=== PATIENT | female | born 1950 | race Caucasian/White ===

== ENCOUNTER 2024-09-09 15:59 | Emergency (ER) | payer MEDICARE, SELFPAY ==
[2024-09-09] VITALS (35 sets, daily range): BP systolic 68–138; BP diastolic 49–83; PULSE 91–124; TEMP 36.7; O2SAT 86–100; BMI 28.9
--- NOTE | 2024-09-09 16:32 | ECG_ITS ---
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
--- NOTE | 2024-09-09 16:54 | ECG_ITS ---
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
[2024-09-09] MEDS: 0.9 % SODIUM CHLORIDE 1,000 ML 1000 ML IV (17:03)
[2024-09-09 17:06] LABS: Hematocrit 35.7 % (36.0-48.0); Hemoglobin 11.4 g/dL (12.0-16.0); Immature Granulocytes Abs Auto 0.11 10^3/uL (0.00-0.03); Immature Granulocytes Pct Auto 0.9 % (0.0-0.5); Lymphocytes Absolute Auto 0.8 10^3/uL (1.2-3.8); Mean Corpuscular HGB Conc 31.9 g/dL (29.9-35.2); Mean Corpuscular Hemoglobin 26.5 pg (26.7-34.0); Mean Corpuscular Volume 82.8 fL (81.0-99.0); Platelet Count 371 10^3/uL (150-450); Red Blood Count 4.31 10^6/uL (4.20-5.40); White Blood Count 12.1 10^3/uL (4.0-11.0)
[2024-09-09] MEDS: ORPHENADRINE 60 MG/2 ML VIAL IV (17:07)
[2024-09-09] MEDS: KETOROLAC TROMETHAMINE 30 MG/ML VIAL 15 MG IVP (17:07)
--- NOTE | 2024-09-09 17:19 | XR_ITS ---
The [place] [id number] Patient Name: RUTH ALONZO MRN: [id number] date: 1950 Sex: F Assigned Patient Location: ER Current Patient Location: ER Accession/Order Number: [id number] Exam Date: 09/09/2024 17:46 Report Date: 09/09/2024 17:46 At the request of: GABRIEL GARCIA MD Procedure: XR chest 1V XR chest 1V 09/09/2024 5:41 PM SIGNS AND SYMPTOMS: ^cp PROTOCOL: Frontal radiograph of the chest COMPARISON: 05/14/2022 FINDINGS: The trachea is midline. The heart and mediastinal structures are within normal limits. The lung parenchyma is clear. The bony thorax is intact. Degenerative changes are noted in the shoulders and thoracic spine. XR/XR chest 1V IMPRESSION: No acute cardiopulmonary pathology. Impression dictated by: Chandrakant Oneill M.D. 09/09/2024 5:46 PM Dictation Location: [place] [address] Electronically authenticated by: [id number] Y Date: 09/09/2024 17:46
[2024-09-09 17:22] LABS: INR 1.16; Prothrombin Time 12.1 sec (9.0-11.6)
[2024-09-09 17:23] LABS: Lactate/Lactic Acid 1.1 mmol/L (0.4-2.0)
[2024-09-09 17:24] LABS: Alanine Aminotransferase 7 U/L (14-59); Albumin Globulin Ratio 0.5; Albumin Level 2.7 g/dL (3.4-5.0); Alkaline Phosphatase 135 U/L (46-116); Anion Gap 15.0; Aspartate Amino Transferase 15 U/L (15-37); Blood Urea Nitrogen 17.0 mg/dL (7.0-18.0); Calcium 9.2 mg/dL (8.5-10.1); Carbon Dioxide 29.8 mmol/L (21.0-32.0); Chloride 93 mmol/L (98-107); Estimated GFR (African America 52 (>=60 mL/min/1.73m^2); Estimated GFR (Non-African Ame 43 (>=60 mL/min/1.73m^2); Globulin 5.4 g/dL; Glucose 142 mg/dL (74-106); Sodium 135 mmol/L (136-145); Total Protein 8.1 g/dL (6.4-8.2)
[2024-09-09 17:26] LABS: Potassium 2.8 mmol/L (3.5-5.1)
[2024-09-09] MEDS: MORPHINE SULFATE 2 MG/ML SYRINGE IV (17:36)
[2024-09-09] MEDS: POTASSIUM CHLORIDE IN WATER 10 MEQ/100 ML PREMIX 100 MEQ IV ×2 (17:45→19:05)
--- NOTE | 2024-09-09 18:40 | ED.CHESTPAI1 ---
HPI - Chest Pain General Chief Complaint: Back Pain/Injury Stated Complaint: severe back pain Time Seen by Provider: 09/09/24 16:27 Source: patient Mode of arrival: Wheelchair Limitations: no limitations History of Present Illness HPI narrative: The patient is a 74-year-old female coming to the ER with a right sided chest wall pain, patient mentioned that she chronically have chest wall pain that is mostly secondary to muscle spasm but over the last few days she has been having significantly severe pain associated with sometimes radiation to the left ear and jaw, The patient have no sweating with it no nausea no vomiting no difficulty breathing It was also noted that the patient was evaluated by her primary care doctor recently she was provided with levofloxacin for UTI management Related Data Home Medications ?Medication ?Instructions ?Recorded ?Confirmed alprazolam 0.5 mg tablet mg 09/09/24 aspirin 325 mg tablet 325 mg PO DAILY 09/09/24 09/09/24 cyproheptadine 4 mg tablet mg 09/09/24 furosemide 40 mg tablet (Lasix) mg 09/09/24 levothyroxine 50 mcg tablet mcg 09/09/24 metformin 500 mg tablet mg 09/09/24 omeprazole 40 mg capsule,delayed mg 09/09/24 release potassium 95 mg tablet 20 mg PO 09/09/24 Allergies Allergy/AdvReac Type Severity Reaction Status Date / Time Sulfa (Sulfonamide Allergy Mild Hives Verified 09/09/24 16:04 Antibiotics) Review of Systems ROS Status of ROS 10 or more systems reviewed and unremarkable except as noted in history and below PFSH PFSH Social History Little interest or pleasure in doing things: not at all Feeling down, depressed, or hopeless: not at all Exam Narrative Exam Narrative: Nurses notes and vital signs reviewed and patient is not hypoxic. General: Well-appearing and in no apparent distress. Skin: Warm, dry, no pallor noted. No rash. Head: Normocephalic, atraumatic. Neck: Supple, non-tender. Eye: Pupils are equal, round and EOMI. No scleral icterus. Ears, Nose, Mouth, and Throat: TM are clear, no nasal mucosal hypertrophy. Oral mucosa is moist, no posterior oropharynx erythema, uvula is mid-line Cardiovascular: Regular Rate and Rhythm without murmur, gallop or rub. Respiratory: No accessory muscle use or respiratory distress. Lungs are clear to auscultation, no wheezing, rales or rhonchi Chest Wall: Right-sided chest wall significant tenderness at the scapular area no ecchymosis Back: No midline thoracic or lumbar vertebral tenderness. No CVA tenderness Musculoskeletal: normal ROM, no calf or popliteal tenderness, no lower extremity edema/swelling GI: Abdomen is soft, non-distended. Normal bowel sounds. No masses appreciated. No tenderness to palpation. No rebound, guarding, or rigidity noted. Neurological: A&O x4. No cranial nerve dysfunction observed. Constitutional Vital Signs, click to edit/add: Last Vital Signs Temp 98.1 F 09/09/24 16:05 Pulse 124 H 09/09/24 16:05 Resp 20 09/09/24 16:05 BP 118/80 09/09/24 16:05 Pulse Ox 96 09/09/24 16:05 O2 Del Method Room Air 09/09/24 16:05 Course Vital Signs Vital signs: Vital Signs Temperature 98.1 F 09/09/24 16:05 Pulse Rate 124 H 09/09/24 16:05 Respiratory Rate 20 09/09/24 16:05 Blood Pressure 118/80 09/09/24 16:05 Pulse Oximetry 96 09/09/24 16:05 Oxygen Delivery Method Room Air 09/09/24 16:05 Temperature 98.1 F 09/09/24 16:05 Pulse Rate 124 H 09/09/24 16:05 Respiratory Rate 20 09/09/24 16:05 Blood Pressure 118/80 09/09/24 16:05 Pulse Oximetry 96 09/09/24 16:05 Oxygen Delivery Method Room Air 09/09/24 16:05 MDM - Chest Pain MDM Narrative Medical decision making narrative: On arrival the patient had an EKG that shows that she have a sinus rhythm with a heart rate of 111 at that time that EKG did not show any acute changes ST elevation or depression... It was actually 1 hour almost on arrival the patient had felt that she is having that the pain going to her left side of the neck and the jaw and that when you repeated another EKG that although it was showing some artifact it did show some PVCs The patient CBC showed no leukocytosis lactic acid was not elevated but it was concerning that the patient is tachycardic with a heart rate of 124 on arrival The D-dimer was elevated and CT angio of the chest ordered to rule out any PE Patient also had a negative troponin She was treated in the ER with Toradol morphine and Norflex with improvement The patient also was found to have a low potassium of 2.8 and it seems that she have a history of low potassium that she takes supplements and she was provided with IV potassium while she was in the ER Lab Data Labs: Lab Results 09/09/24 Range/Units 17:00 WBC 12.1 H (4.0-11.0) 10^3/uL RBC 4.31 (4.20-5.40) 10^6/uL Hgb 11.4 L (12.0-16.0) g/dL Hct 35.7 L (36.0-48.0) % MCV 82.8 (81.0-99.0) fL MCH 26.5 L (26.7-34.0) pg MCHC 31.9 (29.9-35.2) g/dL RDW 15.3 H (11.0-15.0) % Plt Count 371 (150-450) 10^3/uL MPV 9.4 L (9.5-13.5) fL Neut % (Auto) 83.6 H (43.0-75.0) % Lymph % (Auto) 6.8 L (20.5-60.0) % [place] % (Auto) 8.4 (1.7-12.0) % Eos % (Auto) 0.1 L (0.9-7.0) % Baso % (Auto) 0.2 (0.2-2.0) % Neut # (Auto) 10.1 H (1.4-6.5) 10^3/uL Lymph # (Auto) 0.8 L (1.2-3.8) 10^3/uL [place] # (Auto) 1.0 H (0.3-0.8) 10^3/uL Eos # (Auto) 0.0 (0.0-0.7) 10^3/uL Baso # (Auto) 0.0 (0.0-0.1) 10^3/uL Abs Immat Gran (auto) 0.11 H (0.00-0.03) 10^3/uL Imm/Tot Granulo (auto) 0.9 H (0.0-0.5) % PT 12.1 H (9.0-11.6) sec INR 1.16 D-Dimer 1.49 H* (<=0.59) mg/L FEU Sodium 135 L (136-145) mmol/L Potassium 2.8 L* (3.5-5.1) mmol/L Chloride 93 L (98-107) mmol/L Carbon Dioxide 29.8 (21.0-32.0) mmol/L Anion Gap 15.0 BUN 17.0 (7.0-18.0) mg/dL Creatinine 1.21 H (0.55-1.02) mg/dL Est GFR ( Amer) 52 L (>=60 mL/min/1.73m^2) Est GFR (Non-Af Amer) 43 L (>=60 mL/min/1.73m^2) BUN/Creatinine Ratio 14.0 Glucose 142 H (74-106) mg/dL Lactate 1.1 (0.4-2.0) mmol/L Calcium 9.2 (8.5-10.1) mg/dL Total Bilirubin 0.4 (0.2-1.0) mg/dL AST 15 (15-37) U/L ALT 7 L (14-59) U/L Alkaline Phosphatase 135 H (46-116) U/L Troponin I High Sens 4.6 (4.0-51.3) pg/mL Total Protein 8.1 (6.4-8.2) g/dL Albumin 2.7 L (3.4-5.0) g/dL Globulin 5.4 g/dL Albumin/Globulin Ratio 0.5 Discharge Plan Discharge Patient Disposition: Still a Patient
--- NOTE | 2024-09-09 20:09 | ED.BACK1 ---
HPI HPI - Back Pain/Injury General Chief Complaint: Back Pain/Injury Stated Complaint: severe back pain Time Seen by Provider: 09/09/24 16:27 Source: patient Mode of arrival: Wheelchair Limitations: no limitations History of Present Illness HPI Narrative: This 74-year-old female who has a history of chronic upper back pain with muscle spasms that she has had for the past 5 years was signed out to me at shift change pending CT angio of the chest. She states the symptoms have been ongoing for 5 years but worse recently. She has no numbness or tingling. She states she saw Dr. Whitaker last who thought she may have a kidney infection and put her on Levaquin and Pyridium. She states that every time she took that she felt worse. She has been on tizanidine in the past and has been using that without significant improvement. She is comfortable at this time with stable vital signs. Labs are reviewed. She does have an elevated D-dimer. CT angio of the chest is pending. She has a normal troponin. Count is minimally elevated at 12.1 with a stable hemoglobin. Electrolyte panel is normal with the exception of a low potassium at 2.8. This was replaced with IV and oral potassium. CT angiogram is negative for pulmonary embolism and negative for any acute abnormality in the chest. The results of the CT scan were discussed with the patient and her . She was given a copy of the report for her records. She is still perplexed as to what is causing her pain. Since it has been ongoing for the past 5 years it is likely musculoskeletal in nature. She will be given a prescription for Zofran and [place] to use in addition to her tizanidine for pain and spasm. She has potassium supplementation at home but she will also be given a prescription for 20 mill equivalent potassium to take on a daily basis due to her prior hypokalemia. O[facility] was reviewed and is negative for any recent activity except Xanax Related Data Home Medications ?Medication ?Instructions ?Recorded ?Confirmed alprazolam 0.5 mg tablet mg 09/09/24 aspirin 325 mg tablet 325 mg PO DAILY 09/09/24 09/09/24 cyproheptadine 4 mg tablet mg 09/09/24 furosemide 40 mg tablet (Lasix) mg 09/09/24 levothyroxine 50 mcg tablet mcg 09/09/24 metformin 500 mg tablet mg 09/09/24 omeprazole 40 mg capsule,delayed mg 09/09/24 release potassium 95 mg tablet 20 mg PO 09/09/24 Allergies Allergy/AdvReac Type Severity Reaction Status Date / Time Sulfa (Sulfonamide Allergy Mild Hives Verified 09/09/24 16:04 Antibiotics) PFSH PFSH Social History Little interest or pleasure in doing things: not at all Feeling down, depressed, or hopeless: not at all Exam Constitutional Vital Signs, click to edit/add: Last Vital Signs Temp 98.1 F 09/09/24 16:05 Pulse 124 H 09/09/24 16:05 Resp 20 09/09/24 16:05 BP 118/80 09/09/24 16:05 Pulse Ox 96 09/09/24 16:05 O2 Del Method Room Air 09/09/24 16:05 Course Vital Signs Vital signs: Vital Signs Temperature 98.1 F 09/09/24 16:05 Pulse Rate 124 H 09/09/24 16:05 Respiratory Rate 20 09/09/24 16:05 Blood Pressure 118/80 09/09/24 16:05 Pulse Oximetry 96 09/09/24 16:05 Oxygen Delivery Method Room Air 09/09/24 16:05 Temperature 98.1 F 09/09/24 16:05 Pulse Rate 124 H 09/09/24 16:05 Respiratory Rate 09/09/24 16:05 Blood Pressure 118/80 09/09/24 16:05 Pulse Oximetry 96 09/09/24 16:05 Oxygen Delivery Method Room Air 09/09/24 16:05 MDM - Back Pain/Injury Medical Records Attestation: I reviewed the patient's medical records. Lab Data Attestation: I reviewed the patient's lab results. Labs: Lab Results 09/09/24 Range/Units 17:00 WBC 12.1 H (4.0-11.0) 10^3/uL RBC 4.31 (4.20-5.40) 10^6/uL Hgb 11.4 L (12.0-16.0) g/dL Hct 35.7 L (36.0-48.0) % MCV 82.8 (81.0-99.0) fL MCH 26.5 L (26.7-34.0) pg MCHC 31.9 (29.9-35.2) g/dL RDW 15.3 H (11.0-15.0) % Plt Count 371 (150-450) 10^3/uL MPV 9.4 L (9.5-13.5) fL Neut % (Auto) 83.6 H (43.0-75.0) % Lymph % (Auto) 6.8 L (20.5-60.0) % [place] % (Auto) 8.4 (1.7-12.0) % Eos % (Auto) 0.1 L (0.9-7.0) % Baso % (Auto) 0.2 (0.2-2.0) % Neut # (Auto) 10.1 H (1.4-6.5) 10^3/uL Lymph # (Auto) 0.8 L (1.2-3.8) 10^3/uL [place] # (Auto) 1.0 H (0.3-0.8) 10^3/uL Eos # (Auto) 0.0 (0.0-0.7) 10^3/uL Baso # (Auto) 0.0 (0.0-0.1) 10^3/uL Abs Immat Gran (auto) 0.11 H (0.00-0.03) 10^3/uL Imm/Tot Granulo (auto) 0.9 H (0.0-0.5) % PT 12.1 H (9.0-11.6) sec INR 1.16 D-Dimer 1.49 H* (<=0.59) mg/L FEU Sodium 135 L (136-145) mmol/L Potassium 2.8 L* (3.5-5.1) mmol/L Chloride 93 L (98-107) mmol/L Carbon Dioxide 29.8 (21.0-32.0) mmol/L Anion Gap 15.0 BUN 17.0 (7.0-18.0) mg/dL Creatinine 1.21 H (0.55-1.02) mg/dL Est GFR ( Amer) 52 L (>=60 mL/min/1.73m^2) Est GFR (Non-Af Amer) 43 L (>=60 mL/min/1.73m^2) BUN/Creatinine Ratio 14.0 Glucose 142 H (74-106) mg/dL Lactate 1.1 (0.4-2.0) mmol/L Calcium 9.2 (8.5-10.1) mg/dL Total Bilirubin 0.4 (0.2-1.0) mg/dL AST 15 (15-37) U/L ALT 7 L (14-59) U/L Alkaline Phosphatase 135 H (46-116) U/L Troponin I High Sens 4.6 (4.0-51.3) pg/mL Total Protein 8.1 (6.4-8.2) g/dL Albumin 2.7 L (3.4-5.0) g/dL Globulin 5.4 g/dL Albumin/Globulin Ratio 0.5 Discharge Plan Discharge Chief Complaint: Back Pain/Injury Clinical Impression: Thoracic back pain, Hypokalemia Patient Disposition: Home, Self-Care Time of Disposition Decision: 20:40 Condition: Good Prescriptions / Home Meds: No Action furosemide [Lasix] 40 mg tablet alprazolam 0.5 mg tablet potassium 95 mg tablet 20 mg PO metformin 500 mg tablet omeprazole 40 mg capsule,delayed release(DR/EC) cyproheptadine 4 mg tablet aspirin 325 mg tablet 325 mg PO DAILY levothyroxine 50 mcg tablet Print Language: Chinese Instructions: Thoracic Pain (ED), Muscle Spasm (ED) Referrals: Prem Whitaker MD [Primary Care Provider, Family Practice] - 1 week
== END 2024-09-09 21:01 | disposition home or self-care (01) ==
PROVIDERS: Emergency Medicine; Emergency Provider Emergency Medicine; PCP Family Medicine
DX: M54.6 Pain in thoracic spine (principal); E87.6 Hypokalemia; G89.29 Other chronic pain; R79.89 Other specified abnormal findings of blood chemistry; R07.89 Other chest pain
CPT/HCPCS: 36415; 71045; 71275; 80053; 83605; 84484; 85025; 85378; 85610; 93005; 96365; 96366; 96375; 99285; J1885; J2270; J2360; J3480; Q9967

== ENCOUNTER 2024-10-04 13:15 | Outpatient (OUT) | payer MEDICARE, SELFPAY ==
--- OUTSIDE RECORDS SUMMARY | 2024-10-04 13:16 | XMS_ITS | Encounter Summary ---
Author Organization [facility] Address [id number] [place] [address] Care Team Providers Care Contour Sander Name Role Phone Prem Whitaker MD Primary Care Provider [phone] Encounter Details Date Type Department Care Team ([facility] st Contact Info) Description 01/08/2021 [facility]phone [facility] [address] [facility] [address] [place] [address] Jayleen Enrique, DISK SHARPENER-LANDSCAPE ACCOUNT MANAGER [address] [facility] [address] [place] [address] Social History Tobacco Use Types Packs/Day Years Used Date Smoking Tobacco: Former Smokeless Tobacco: Never Alcohol Use Standard Drinks/Week Comments Yes 0 (1 standard drink = 0.6 oz pur e alcohol) OCCASIONAL AUDIT-C Answer Date Recorded Q1: How often do you have a drink containing alc ohol? Never 07/19/2019 Average Number of Drinks Not on file 020 Frequency of Binge Drinking Not on file 06/29 Childcare Answer Date Recorded Childcare Unknown 08/01/2018 Employment Answer Date Recorded Employment Unknown 08/01/2018 Purpose - Life Answer Date Recorded Purpose and direction in life Unknown Comments No Sex and Gender Information Value Date Recorded Sex Assigned at Not on file Legal Sex Female 11:21 AM EDT Gender Identity Not on file Sexual Orientation Not on file COVID-19 Exposure Response Date Recorded In the last month, have you been in contact with someone who was confirmed or suspected to have Coronavirus / COVID-19? No / Unsure 01/07/2021 1:36 PM EST documented as of this encounter Miscellaneous Notes * Telephone Encounter - Jose Gabi Anatoliy - 01/08/2021 9:20 AM EST ----- Message from ROSY Bentley sent at 01/07/2021 5:11 PM EST ----- Please call patient's home healthcare nurse and asked them to please maintain the PICC line until further notice. We are attempting to transition patient over to oral medication to complete antibiotic course of treatment for her Pseudomonas infection. If she tolerates the Levaquin well we will reach out again to home healthcare to have them remove the PICC line on Tuesday January 12, 2021. * Telephone Encounter - Jose Gabi Anatoliy - 01/08/2021 9:20 AM EST I called Sissy and she was advised. She stated she will see the patient Tuesday anyways for picc dressing change so she will just pull labs then. And will wait to hear back on the d/c of the line. * Telephone Encounter - Jose Gabi Anatoliy - 01/08/2021 9:20 AM EST Patient is tolerating new med well, no complications. Oralia [facility] nurse from [facility] was advised of labs to pull before line is pulled. Patient will also go to lab Tuesday01/16/21 and get redraw. documented in this encounter Plan of Treatment Upcoming Encounters Date Type Department Care Team (Late st Contact Info) Description 10/15/2024 12:45 PM EDT Appointment [facility] - MRI Imaging [address] [place] [address] 10/15/2024 1:15 PM EDT Appointment [facility] - MRI Imaging [address] [place] [id number] documented as of this encounter Visit Diagnoses Not on filedocumented in this encounter Care Teams Contour Sander Relationship Specialty Start Date End Date Prem Whitaker MD PCP - General Family Medicine 07/19/19 documented as of this encounter
--- OUTSIDE RECORDS SUMMARY | 2024-10-04 13:16 | XMS_ITS | Encounter Summary ---
Author Organization [facility] Address [id number] [address] [place] [address] Care Team Providers Care Thread Clipper Name Role Phone Prem Whitaker MD Primary Care Provider [phone] Encounter Details Date Type Department Care Team ([facility] st Contact Info) Description 01/12/2021 [facility]phone [facility] [address] [facility] [address] [place] [address] Jayleen Enrique, WASH HOUSE WORKER-PRIVATE BANKER [address] [facility] [address] [place] [address] Social History Tobacco Use Types Packs/Day Years [...] Telephone Encounter - Jose Gabi Anatoliy - 01/12/2021 9:13 AM EST ----- Message from ROSY Bentley sent at 01/07/2021 4:52 PM EST ----- Please call Qian on TuesdayJanuary 12 and inquire as to whether not she is tolerating the new antibiotic (Levaquin). If she is tolerating the medicine please notify Jayleen Enrique infectious Disease PRIVATE BANKER, so I can place an order to have patient's PICC line removed. Thank you * Telephone Encounter - Jose Gabi Anatoliy - 01/12/2021 9:13 AM EST Jayleen- Patient called to say she is doing better on the Levaquin she does not have any nausea anymore. She stated she will have Oralia her [facility] nurse call us for update and labs. * Telephone Encounter - Jose Cope - 01/12/2021 9:13 AM EST Yordy Barton [facility] nurse, called back and was advised of what labs to pull, and also to pull line since patient is tolerating. * Telephone Encounter - ROSY Bentley - 01/12/2021 9:13 AM EST Okay thank you * Telephone Encounter - Jose Cope - 01/12/2021 9:13 AM EST Patient has an appt today. documented in this encounter Plan of Treatment Upcoming Encounters Date Type Department Care Team (Late st Contact Info) Description 10/15/2024 12:45 PM EDT Appointment [facility] - MRI Imaging [address] [address] 10/15/2024 1:15 PM EDT Appointment [facility] - MRI Imaging [address] [place] [address] documented as of this encounter Results * WBC (01/12/2021 10:30 AM EST) White Blood Cells 6.9 4.0 - 11.0 X10E9/L 01/12/2021 11:08 AM EST [facility] Serum / Unknown 01/12/2021 1 0:30 AM EST 01/12/2021 11:00 AM EST Jayleen Enrique WASH HOUSE WORKER-PRIVATE BANKER LAB BLOOD ORDERABLES F inal Result [address], [place] [address] * Liver panel (01/12/2021 10:30 AM EST) Alkaline phosphatase 93 39 - 130 U/L 01/12/2021 11:19 AM [facility] AST 23 0 - 41 U/L 01/12/2021 11:19 AM [facility] ALT 20 0 - 31 U/L 01/12/2021 11:19 AM [facility] Total Bilirubin 0.5 0.3 - 1.2 mg/dL 01/12/2021 11:19 AM [facility] Bilirubin, direct <0.1 0.0 - 0.4 mg/dL 01/12/2021 11:19 AM [facility] Albumin 3.7 3.2 - 5.3 g/dL 01/12/2021 11:19 AM [facility] Total Protein 7.8 6.0 - 8.0 g/dL 01/12/2021 11:19 AM [facility] Blood Serum / Unknown 01/12/2021 1 0:30 AM EST 01/12/2021 11:00 AM EST Jayleen [facility]aw[facility] WASH HOUSE WORKER-PRIVATE BANKER LAB BLOOD ORDERABLES F inal Result Performing Organization Address City/[facility]/[place] [address] * Platelet count (01/12/2021 10:30 AM EST) Platelets 278 150 - 450 X10E9/L 01/12/2021 11:08 AM [facility] MPV 8.8 7 - 12 fL 01/12/2021 11:08 AM [facility] Blood Serum / Unknown 01/12/2021 1 0:30 AM EST 01/12/2021 11:00 AM EST Jayleen Enrique WASH HOUSE WORKER-PRIVATE BANKER LAB BLOOD ORDERABLES F inal Result Performing Organization Address City/[facility] [place] [address] * (ABNORMAL) Creatinine includes GFR, serum (01/12/2021 10:30 AM EST) Creatinine 1.02(H) 0.40 - 1.00 mg/dL 01/12/2021 11:19 AM [facility] Comment:METHOD TRACEABLE TO IDMS STANDARD GFR MDRD Non Af Amer 53(L) >59 ml/min/1.7 3sq.m 01/12/2021 11:19 AM [facility] GFR MDRD Af Amer >60 >59 ml/min/1.7 3sq.m 01/12/2021 11:19 AM [facility] Serum / Unknown 01/12/2021 1 0:30 AM EST 01/12/2021 11:00 AM EST Jayleen Enrique WASH HOUSE WORKER-PRIVATE BANKER LAB BLOOD ORDERABLES F inal Result [facility] [address], [place] [address] documented in this encounter Visit Diagnoses Diagnosis Pseudomonas infection- Primary care home (current) use of antibiotics documented in this encounter Care Teams Thread Clipper Relationship Specialty Start Date End Date Prem Whitaker MD PCP - General Family Medicine 07/19/19 documented as of this encounter
--- NOTE | 2024-10-04 13:17 | MR_ITS ---
The [address] [address] Patient Name: RUTH ALONZO MRN: [facility]:[id number] date: 1950 Sex: F Assigned Patient Location: MRI Current Patient Location: MRI Accession/Order Number: [id number] Exam Date: 10/04/2024 19:14 Report Date: 10/04/2024 19:20 At the request of: ZELDA LUEVANO MD Procedure: MR cervical spine wo con EXAMINATION: MRI OF THE CERVICAL SPINE WITHOUT CONTRAST CLINICAL DATA: Cervical Radiculopathy TECHNIQUE: Multiecho imaging was performed in the sagittal and axial plane without contrast FINDINGS: FINDINGS: The craniocervical junction is maintained. Cervical vertebral heights, alignment, bone marrow signal is unremarkable. Cervical cord demonstrates normal signal morphology. Intervertebral space narrowing, mild at L4-5 prevertebral and paraspinal soft tissues are unremarkable. FINDINGS: C2-C3: Mild facet arthropathy. No significant disc disease, central canal or neural from narrowing identified. C3-C4: Mild Central disc osteophyte complex. Canal neural foramen are patent. C4-C5: Right paracentral disc osteophyte complex and bilateral uncovertebral spurring noted. This causes mild indentation right hemicord. Mild canal narrowing greatest right. There is moderate to severe right and left neural foraminal narrowing. C5-6: Broad-based disc osteophyte complex with mild uncovertebral spurring. Mild canal and mild neural foraminal narrowing. C6-C7: Broad-based disc osteophyte complex with bilateral uncovertebral spurring. Moderate neural foraminal narrowing. Mild central canal stenosis. C7-T1: Moderate right and minimal left facet arthropathy. No significant disease, central canal or neural from narrowing identified. There is degenerative facet arthropathy involving the upper thoracic spine as partially visualized which appears to cause dorsal canal encroachment. MR/MR cervical spine wo con IMPRESSION: Overall mild multilevel degenerative changes are spine greatest on the right C4-C5. Additional findings as noted within the body report. Impression dictated by: Mayo Dunham M.D. 10/04/2024 7:20 PM Dictation Location: [place] [address] Electronically authenticated by: [id number] Y Date: 10/04/2024 19:20
--- OUTSIDE RECORDS SUMMARY | 2024-10-04 13:17 | XMS_ITS | Clinical Summary ---
Author Organization [employer] s tem Address [id number] [address] [place] [address] Care Team Providers Care Splunk Consultant Name Role Phone Prem Whitaker MD Primary Care Provider [phone] Allergies Active Allergy Reactions Criticality Noted Date Comments Codeine Vomiting Low 06/15/2018 Oxycodone-Acetaminophen Itching Medium 01/23/2020 Propoxyphene N-Acetaminophen Itching Medium 020 Sulfa (Sulfonamide Antibiotics) Rash Low 07/19/2019 swollen lymph nodes , headache Medications triamterene-hydro CHLOROthiazid (MAXZIDE-25) 37.5-25 mg per tablet Take 1 tablet by mouth in the morning. Active furosemide (LASIX) 20 mg tablet Take 1 tablet (20 mg total) by mouth daily. Active ALPRAZolam (XANAX) 0.25 mg tablet Take 1 tablet (0.25 mg total) by mouth nightly as needed for anxiety. Active temazepam (RESTORIL) 7.5 mg capsule Take 1 capsule (7.5 mg total) by mouth nightly as needed for sleep. Active metFORMIN (GLUCOPHAGE) 500 mg tablet Take 1 tablet (500 mg total) by mouth daily with breakfast. PT STATES SHE IS NOT DIABETIC, IS TAKING THIS A PREVENTATIVE. Active potassium chloride (K-TAB,KLOR-CON) 10 MEQ CR tablet Take 2 tablets (20 mEq total) by mouth 3 (three) times a day. Active levothyroxine (SYNTHROID, LEVOTHROID) 50 MCG tablet Take 1 tablet (50 mcg total) by mouth in the morning. 1 Active omeprazole (PriLOSEC) 10 mg capsule Take 4 capsules (40 mg total) by mouth daily. 30 capsule 1 1 Active omeprazole (PriLOSEC) 10 mg capsule Take 4 capsules (40 mg total) by mouth. Active sodium,potassium, mag sulfates (SUPREP BOWEL PREP KIT) 17.5-3.13-1.6 gram recon soln 177 ml,actual weight, 2 times daily, Oral 177 mL 1 Active cyclobenzaprine (FLEXERIL) 10 mg tablet Take 1 tablet (10 mg total) by mouth 2 (two) times a day as needed for muscle spasms. 10 tablet 4 Active lidocaine (LIDODERM) 5 %Indications:Left -sided thoracic back pain, unspecified chronicity,DDD (degenerative disc disease), cervical,Thoracic degenerative disc disease Place 1 patch on the skin daily. Remove & Discard patch within 12 hours or as directed by 30 patch 5 Active naproxen (NAPROSYN) 500 mg tablet Take 1 tablet (500 mg total) by mouth in the morning and 1 tablet (500 mg total) in the evening. Take with meals. 14 tablet 5 Active CEPHalexin (KEFLEX) 500 mg capsule Take 1 capsule (500 mg total) by mouth in the morning and 1 capsule (500 mg total) at noon and 1 capsule (500 mg total) in the evening and 1 capsule (500 mg total) before bedtime. Do all this for 5 days. 20 capsule 5 09/17/19 25 predniSONE (DELTASONE) 20 mg tablet Take 1 tablet (20 mg total) by mouth in the morning for 5 days. 5 tablet 5 09/17/19 25 HYDROcodone-aceta minophen (NORCO) 5-325 mg per tabletIndications :Musculoskeletal pain,Wrist sprain, left, initial encounter Take 1 tablet by mouth every 8 (eight) hours as needed for pain for up to 3 days. Max Daily Amount: 3 tablets 9 tablet 5 09/22/19 25 Active Problems No known active problems Encounters Date Type Department Care Team Description 09/25/2024 Travel 09/18/2024 12:02 PM EDT - 09/18/2024 3:14 PM EDT Emergency [facility] - Emergency [address] [place] [address] Daniela Coelho MD Musculoskeletal pain (Primary Dx); Wrist sprain, left, initial encounter Discharge Disposition: Home 09/18/2024 Travel 09/14/2024 4:33 PM EDT - 09/14/2024 5:38 PM EDT Emergency [facility] - Emergency [address] [place] [address] Gretchen Sol DO Pain of left upper extremity (Primary Dx) Discharge Disposition: Home 09/14/2024 Travel 09/11/2024 3:29 PM EDT - 09/11/2024 6:37 PM EDT Emergency [facility] - Emergency [address] [place] [address] Left-sided thoracic back pain, unspecified chronicity (Primary Dx); DDD (degenerative disc disease), cervical; Thoracic degenerative disc disease; Left arm pain; Pulmonary nodules Discharge Disposition: Home 09/11/2024 Travel from Last 3 Months Immunizations Immunization Administration Dates Next Due COVID-19, mRNA, LNP-S, PF, 100mcg/0.5mL Dose Family History Medical History Relation Name Comments Brain cancer Cousin COPD Father Jose Angel Wyatts Breast cancer Maternal Aunt 1 Shazia Bowles Lung cancer Maternal Aunt 1 Shazia Bowles Diabetes Maternal Aunt 2 Jenn Bowles Ovarian cancer Maternal Aunt 3 Pallavi Bowles Uterine cancer Maternal Aunt 3 Pallavi Bowles Heart disease Maternal Grandfather Blaise Bowles II This does not apply Kidney disease Maternal Grandmother Blaise Bowles Stroke Maternal Grandmother Blaise Bowles Diabetes Maternal Uncle 1 Gurinder Bowles Diabetes Maternal Uncle 2 Chandrakant Bowles Pancreatic cancer Maternal Uncle 2 Chandrakant Bowles Arthritis Mother Annette Willie Heart disease Paternal Grandfather Pranay Bowles Relation Name Status Comments Cousin Father Pedrolon Willie Maternal Aunt 1 Shazia Bowles (Age 48) Maternal Aunt 2 Jenn Bowles Maternal Aunt 3 Pallavi Bowles Maternal Grandfather RWendyFaviola Bowles II Maternal Grandmother Blaise Bowles Maternal Uncle 1 Gurinder Bowles Maternal Uncle 2 Chandrakant Bowles Mother Annette Tapia Paternal Grandfather Pranay Bowles Social History Tobacco Use Types Packs/Day Years Used Date Smoking Tobacco: Former Smokeless Tobacco: Never Tobacco Cessation:Counseling Given: Not Answered Alcohol Use Standard Drinks/Week Comments Yes 0 [...] Employment Answer Date Recorded Employment Unknown 08/01/2018 Hunger Screening Answer Date Recorded Within the past 12 months we worried whether our food would run out before we got money to buy more. Never True 09/18/2024 Within the past 12 months th e food we bought just didn't last and we didn't have money to get more. Never True 09/18/2024 Purpose - Life Answer Date Recorded Purpose and direction in life Unknown Comments No Sex and Gender Information Value Date Recorded Sex Assigned at Not on file Legal Sex Female 11:21 AM EDT Gender Identity Not on file Sexual Orientation Not on file Last Filed Vital Signs Vital Sign Reading Time Taken Comments Blood Pressure 110/62 09/18/2024 3:13 PM EDT Pulse 80 09/18/2024 3:13 PM EDT Temperature 36.5 C (97.7 F) 09/18/2024 12:02 PM EDT Respiratory Rate 18 09/18/2024 3:13 PM EDT Oxygen Saturation 96% 09/18/2024 3:13 PM EDT Inhaled Oxygen Concentration - - Weight 66.7 kg (147 lb) 09/18/2024 12:02 PM EDT Height 152.4 cm (5') 09/18/2024 12:02 PM EDT Body Mass Index 28.71 09/18/2024 12:02 PM EDT Plan of Treatment Upcoming Encounters Date Type Department Care Team (Late st Contact Info) Description 10/15/2024 12:45 PM EDT Appointment [facility] [address] [facility] [place] [address] 10/15/2024 1:15 PM EDT Appointment [facility] - MRI Imaging [address] [place] [address] Health Maintenance Due Date Last Done Comments Depression Screening 1962 DTaP,Tdap and Td Vaccines (1 - Tdap) 01/25/1967 Zoster (Shingles) Vaccine (1 of 2) 01/25/1998 Fall Risk Screening 01/25/2013 COVID-19 Vaccine (2 - season) 2023 Influenza Vaccine 10/29/2024 02/23/2019 Tobacco Screening 09/18/2025 09/18/2024 Medical Devices Not on file Procedures Procedure Name Priority Date/Time Associated Diagnosis Comments CBC WITH AUTO DIFFERENTIAL Routine 09/25/2024 4:16 PM EDT Type 2 diabetes mellitus without complications (CMS-HCC) RHEUMATOID FACTOR Routine 09/25/2024 4:1 6 PM EDT Type 2 diabetes mellitus without complications (CMS-HCC) QUANTIFERON-TB GOLD PLUS, B Routine 09/25/2024 4:16 PM EDT Type 2 diabetes mellitus without complications (CMS-HCC) ERYTHROCYTE SEDIMENTATION RATE (ESR) Routine 09/25/2024 4:16 PM EDT Type 2 diabetes mellitus without complications (CMS-HCC) COMPREHENSIVE METABOLIC PANEL Routine 09/25/2024 4:16 PM EDT Type 2 diabetes mellitus without complications (CMS-HCC) XR ELBOW LT MIN 3 VWS STAT 09/18/2024 1:06 PM EDT XR WRIST LT MIN 3 VWS STAT 09/18/2024 12:56 PM EDT XR SHOULDER LT MIN 2 VWS STAT 09/18/2024 12:56 PM EDT XR SPINE CERVICAL 3 VWS OR LESS STAT 09/18/2024 12:55 PM EDT XR HAND LT MIN 3 VWS STAT 09/18/2024 12:54 PM EDT POCT NURSING URINE MACROSCOPIC UA Routine 09/11/2024 5:46 PM EDT ER EXTRA URINE MARBLE STAT 09/11/2024 5:35 PM EDT ER EXTRA URINE CULTURE STAT 09/11/2024 5:35 PM EDT ER EXTRA URINE STAT 09/11/2024 5:[address] THORACIC SPINE WO CONT STAT 09/11/2024 4:30 PM EDT XR SHOULDER LT MIN 2 VWS STAT 09/11/2024 4:[address] CERVICAL SPINE WO CONT STAT 09/11/2024 4:[address] BRAIN WO CONT STAT 09/11/2024 4:29 PM EDT from Last 3 Months Results * QuantiFERON-Tb Gold Plus, B (09/25/2024 4:16 PM EDT) [facility] QUANTIFERON-TB GOLD PLUS RESULT Negative Negative 09/27/2024 12:28 PM EDT [facility] Comment: 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 tuberculosis antigens was detected. Latent infection with M. tuberculosis is unlikely. A single negative result does not exclude infection with M. tuberculosis. In patients at high risk for M.tuberculosis infection, a second test should be considered in accordance with the 2017 ATS/IDSA/CDC Clinical Practice Guidelines for Diagnosis of Tuberculosis in Adults and Children [Ld HAYWARD et. al. Clin. Infect. Dis. 2017;64(2):111-115]. The reference range for the 'TB1 Ag minus Nil Result' and 'TB2 Ag minus Nil Result' is an Interferon-gamma level <0.35 IU/mL. TB1 AG MINUS NIL RESULT 0.06 IU/mL 09/27/2024 12:28 PM EDT [facility] TB2 AG MINUS NIL RESULT 0.02 IU/mL 09/27/2024 12:28 PM EDT [facility] MITOGEN MINUS NIL 9.28 IU/mL 09/27/2024 12:28 PM EDT [facility] NIL RESULT 0.02 IU/mL 09/27/2024 12:28 PM EDT [facility] Comment: Test Performed by: [facility] [address] [place] [address] Fingernail Sculpturer: Ricardo Arroyo Ph.D.; CLIA# [id number] Blood Venous blood / Unknown Venipuncture / Unknown 09/25/2024 4:16 PM EDT 09/25/2024 4:16 PM EDT Prem Whitaker MD LAB BLOOD ORDERABLES Final Resu lt [facility] [address] [place] [address], [place] * (ABNORMAL) Erythrocyte Sedimentation Rate (ESR) (09/25/2024 4:16 PM EDT) [facility] ESR, Erythrocyte Sedimentation Rate 49(H) 0 - 30 mm/h 09/25/2024 10:31 PM EDT [facility] Blood Venous blood / Unknown Venipuncture / Unknown 09/25/2024 4:16 PM EDT 09/25/2024 4:16 PM EDT Prem Whitaker MD LAB BLOOD ORDERABLES Final Resu lt [facility] [address] [place] [address], [place] [phone] * (ABNORMAL) CBC auto differential (09/25/2024 4:16 PM EDT) Pathologist [facility] WBC 9.0 4 - 11 x10E9/L 09/25/2024 10:07 PM EDT [facility] RBC Count 4.13 3.8 - 5.2 X10E12/L 09/25/2024 10:07 PM EDT [facility] Hemoglobin 10.9(L) 11.7 - 15.5 g/dL 09/25/2024 10:07 PM EDT [facility] Hematocrit 33.5(L) 35 - 47 % 09/25/2024 10:07 PM EDT [facility] MCV 81 80 - 100 fL 09/25/2024 10:07 PM EDT [facility] MCH 26.3(L) 27 - 34 pg 09/25/2024 10:07 PM EDT [facility] MCHC 32.5 32 - 36 g/dL 09/25/2024 10:07 PM EDT [facility] RDW 16.9(H) 11.5 - 15 % 09/25/2024 10:07 PM EDT [facility] Platelet Count 547(H) 150 - 450 X10E9/L 09/25/2024 10:07 PM EDT [facility] MPV 7.7 7 - 12 fL 09/25/2024 10:07 PM EDT [facility] Neutrophils % 74.3 % 09/25/2024 10:07 PM EDT [facility] Lymphocytes % 19.2 % 09/25/2024 10:07 PM EDT [facility] Monocytes % 4.7 % 09/25/2024 10:07 PM EDT [facility] Eosinophils % 1.1 % 09/25/2024 10:07 PM EDT [facility] Basophils % 0.7 % 09/25/2024 10:07 PM EDT [facility] Neutrophils Absolute (A) 6.7(H) 1.5 - 6.6 10*3/uL 09/25/2024 10:07 PM EDT [facility] Lymphocytes Absolute 1.7 1.0 - 3.5 10*3/uL 09/25/2024 10:07 PM EDT [facility] Monocytes Absolute 0.4 0.0 - 0.9 10*3/uL 09/25/2024 10:07 PM EDT [facility] Eosinophils Absolute 0.1 0.0 - 0.4 10*3/uL 09/25/2024 10:07 PM EDT [facility] Basophils Absolute 0.1 0.0 - 0.2 10*3/uL 09/25/2024 10:07 PM EDT [facility] Differential Type AUTOMATED DIFFERENTIAL 09/25/2024 10:07 PM EDT [facility] Blood Venous blood / Unknown Venipuncture / Unknown 09/25/2024 4:16 PM EDT 09/25/2024 4:16 PM EDT us Prem Whitaker MD LAB BLOOD ORDERABLES Final Resu lt [facility] [address] [place] [address], [place] [phone] * Rheumatoid factor (09/25/2024 4:16 PM EDT) Pathologist [facility] RHEUMATOID FACTOR <10 <20 IU/mL 09/25/2024 10:45 PM EDT [facility] Blood Venous blood / Unknown Venipuncture / Unknown 09/25/2024 4:16 PM EDT 09/25/2024 4:16 PM EDT us Prem Whitaker MD LAB BLOOD ORDERABLES Final Resu lt [facility] [address] [place] [address], [place] [phone] * (ABNORMAL) Comprehensive metabolic panel (09/25/2024 4:16 PM EDT) Pathologist [facility] SODIUM 138 134 - 146 mmol/L 09/25/2024 10:45 PM EDT [facility] POTASSIUM 4.0 3.5 - 5.0 mmol/L 09/25/2024 10:45 PM [facility] CHLORIDE 99 98 - 109 mmol/L 09/25/2024 10:45 PM [facility] CARBON DIOXIDE 24 22 - 32 mmol/L 09/25/2024 10:45 PM [facility] ANION GAP 15 5 - 15 mmol/L 09/25/2024 10:45 PM [facility] BLOOD UREA NITROGEN 17 5 - 27 mg/dL 09/25/2024 10:45 PM [facility] CREATININE 1.23(H) 0.40 - 1.00 mg/dL 09/25/2024 10:45 PM [facility] Comment:METHOD TRACEABLE TO IDNJ STANDARD GLUCOSE 98 65 - 99 mg/dL 09/25/2024 10:45 PM [facility] CALCIUM 8.7 8.5 - 10.5 mg/dL 09/25/2024 10:45 PM [facility] TOTAL PROTEIN 6.9 6.0 - 8.0 g/dL 09/25/2024 10:45 PM [facility] ALBUMIN 3.4 3.2 - 5.3 g/dL 09/25/2024 10:45 PM [facility] ALKALINE PHOSPHATASE 178(H) 39 - 130 U/L 09/25/2024 10:45 PM [facility] AST 11 <=41 U/L 09/25/2024 10:45 PM [facility] ALT 9 <=31 U/L 09/25/2024 10:45 PM [facility] BILIRUBIN,TOTAL 0.6 0.3 - 1.2 mg/dL 09/25/2024 10:45 PM [facility] EGFR Non-Race Dependent 46(L) >=60 ml/min/1.7 3sq.m 09/25/2024 10:45 PM [facility] Comment: Reported eGFR is based on the CKD-EPI 2020 equation that does not use a race coefficient. Blood Venous blood / Unknown Venipuncture / Unknown 09/25/2024 4:16 PM EDT 09/25/2024 4:16 PM EDT Prem Whitaker MD LAB BLOOD ORDERABLES Final Resu lt [facility] [address] [place] [address], [place] [phone] * X-ray elbow left minimum 3 views (09/18/2024 1:06 PM EDT) Anatomical Region Laterality Modality Upper Extremities, MSK, Elbow Left Co mputed Radiography 09/18/2024 1:12 PM EDT Narrative 09/18/2024 1:14 PM EDT HISTORY AND/OR TECH NOTES Pain after fall PROCEDURE X-ray of the left elbow COMPARISON no comparison currently available IMPRESSION: No visible fracture, dislocation, or hemarthrosis Osteopenia and mild degenerative change with some bone hypertrophy at the triceps insertion Finalized by Juan Carlos Ventura MD on 09/18/2024 1:14 PM Procedure Note Juan Carlos Ventura MD - 09/18/2024 HISTORY AND/OR TECH NOTES Pain after fall PROCEDURE X-ray of the left elbow COMPARISON no comparison currently available IMPRESSION: No visible fracture, dislocation, or hemarthrosis Osteopenia and mild degenerative change with some bone hypertrophy at thetriceps insertion Finalized by Juan Carlos Ventura MD on 09/18/2024 1:14 PM Eliz López GILBERT-RN TRANSFER [facility] DIAGNOSTIC IMAGING ORD ERABLES Final Result * X-ray wrist left minimum 3 views (09/18/2024 12:56 PM EDT) Anatomical Region Laterality Modality MSK, Upper Extremities, Wrist Left Co mputed Radiography 09/18/2024 12:5 7 PM EDT Narrative 09/18/2024 12:58 PM EDT HISTORY AND/OR TECH NOTES fall Pain after fall PROCEDURE X-ray of the left wrist COMPARISON no comparison currently available FINDINGS Osteopenia No fracture seen No dislocation seen Moderate arthritic change If continued pain and more detailed imaging needed, consider follow-up MRI IMPRESSION: No acute findings. Finalized by Juan Carlos Ventura MD on 09/18/2024 12:58 PM Procedure Note Juan Carlos Ventura MD - 09/18/2024 HISTORY AND/OR TECH NOTES fall Pain after fall PROCEDURE X-ray of the left wrist COMPARISON no comparison currently available FINDINGS Osteopenia No fracture seen No dislocation seen Moderate arthritic change If continued pain and more detailed imaging needed, consider follow-upMRI IMPRESSION: No acute findings. Finalized by Juan Carlos Ventura MD on 09/18/2024 12:58 PM Eliz López ROSY [facility] DIAGNOSTIC IMAGING ORD ERABLES Final Result * X-ray shoulder left minimum 2 views (09/18/2024 12:56 PM EDT) Only the most recent of2 resultswithin the time period is included. Anatomical Region Laterality Modality MSK, Upper Extremities, Shoulder Left Computed Radiography 09/18/2024 12:5 8 PM EDT Narrative 09/18/2024 12:59 PM EDT CLINICAL INFORMATION: Status post fall. Initial encounter for traumatic injury of the left shoulder fall TECHNIQUE/PROCEDURE: 3 views left shoulder COMPARISON: No relevant prior studies available. FINDINGS: Normal alignment. No fracture or periosteal reaction. Degenerative changes in the acromioclavicular and glenohumeral joints. There is subacromial space could be seen with chronic rotator cuff pathology. The visualized portions of chest and overlying soft tissues are negative. IMPRESSION: No acute osseous abnormality. Degenerative changes. Finalized by Pranay Coats MD on 09/18/2024 12:59 PM Procedure Note Pranay Coats MD - 09/18/2024 CLINICAL INFORMATION: Status post fall. Initial encounter for traumaticinjury of the left shoulder fall TECHNIQUE/PROCEDURE: 3 views left shoulder COMPARISON: No relevant prior studies available. FINDINGS: Normal alignment. No fracture or periosteal reaction. Degenerative changesin the acromioclavicular and glenohumeral joints. There is subacromialspace could be seen with chronic rotator cuff pathology. The visualizedportions of chest and overlying soft tissues are negative. IMPRESSION: No acute osseous abnormality. Degenerative changes. Finalized by Pranay Coats MD on 09/18/2024 12:59 PM Eliz López [employer]-RN TRANSFER [facility] DIAGNOSTIC IMAGING ORD ERABLES Final Result * X-ray spine cervical 3 views or less (09/18/2024 12:55 PM EDT) Anatomical Region Laterality Modality MSK, Neuro, Spine, C-spine N/A Compu santhosh Radiography 09/18/2024 12:5 8 PM EDT Narrative 09/18/2024 12:59 PM EDT XR SPINE CERVICAL 3 VWS OR LESS Clinical history:neck pain Comparison: None. Findings: Advanced multilevel degenerative disc disease with disc loss and endplate degenerative changes most pronounced at C4-C5 C5-C6 and C6-C7. Cervicothoracic junction is not well-visualized. The dens is obscured. Impression: Severe multilevel degenerative disease without definitive acute osseous abnormalities identified within the limitations of this examination. Finalized by Gumaro Shannon MD on 09/18/2024 12:59 PM Procedure Note Gumaro Shannon MD - 09/18/2024 XR SPINE CERVICAL 3 VWS OR LESS Clinical history:neck pain Comparison: None. Findings: Advanced multilevel degenerative disc disease with disc loss and endplatedegenerative changes most pronounced at C4-C5 C5-C6 and C6-C7.Cervicothoracic junction is not well-visualized. The dens is obscured. Impression: Severe multilevel degenerative disease without definitive acute osseousabnormalities identified within the limitations of this examination. Finalized by Gumaro Shannon MD on 09/18/2024 12:59 PM Eliz López [employer]-RN TRANSFER [facility] DIAGNOSTIC IMAGING ORD ERABLES Final Result * X-ray hand left minimum 3 views (09/18/2024 12:54 PM EDT) Anatomical Region Laterality Modality Upper Extremities, MSK, Hand Left Com puted Radiography 09/18/2024 12:5 6 PM EDT Narrative 09/18/2024 12:56 PM EDT CLINICAL INFORMATION: Weakness status post fall. fall TECHNIQUE/PROCEDURE: 3 views left hand COMPARISON: No relevant prior studies available. FINDINGS: Diffuse osteopenia. Normal alignment. No fracture or periosteal reaction. Degenerative changes the first carpometacarpal joint. The overlying soft tissues are negative. IMPRESSION: No acute osseous abnormality. Finalized by Pranay Coats MD on 09/18/2024 12:56 PM Procedure Note Pranay Coats MD - 09/18/2024 CLINICAL INFORMATION: Weakness status post fall. fall TECHNIQUE/PROCEDURE: 3 views left hand COMPARISON: No relevant prior studies available. FINDINGS: Diffuse osteopenia. Normal alignment. No fracture or periosteal reaction.Degenerative changes the first carpometacarpal joint. The overlying softtissues are negative. IMPRESSION: No acute osseous abnormality. Finalized by Pranay Coats MD on 09/18/2024 12:56 PM us Eliz López [employer] [facility] DIAGNOSTIC IMAGING ORD ERABLES Final Result * (ABNORMAL) POCT Nursing Urine Macroscopic UA (09/11/2024 5:46 PM EDT) POC Urine Specific [place]comb 1.015 1.010, 1.015, 1.020, 1.025 09/11/2024 5:39 PM EDT [facility] POC Urine Leukocyte Esterase Negative Negative 09/11/2024 5:39 PM EDT [facility] POC Urine Nitrite Positive(A) Negative 09/11/2024 5:39 PM EDT [facility] POC Urine pH 5.5 5.0, 6.0, 6.5, 7.0, 7.5, 8.0, 8.5, 5.5 09/11/2024 5:39 PM EDT [facility] POC Urine Protein 30 mg/dL(A) Negative 09/11/2024 5:39 PM EDT [facility] Urine Glucose Negative Negative 09/11/2024 5:39 PM EDT [facility] Urine Ketones Negative Negative 09/11/2024 5:39 PM EDT [facility] Urine Urobilinogen 1.0 E.U./dL 09/11/2024 5:39 PM EDT [facility] Urine Bilirubin Small(A) Negative 09/11/2024 5:39 PM EDT [facility]OC Urine Blood/HGB Negative Negative 09/11/2024 5:39 PM EDT [facility] Urine 09/11/2024 5:46 PM EDT 09/11/2024 5:39 PM EDT us POINT OF CARE TEST ORDERABLES Fi nal Result [address] [place] [place] [address], [place] * Extra Urine [place] (09/11/2024 5:35 PM EDT) Extra Tube Auto Resulted 09/11/2024 7:01 PM EDT [facility] Urine Urine specimen collection, clean catch / Unknown 09/11/2024 5:35 PM EDT 09/11/2024 5:56 PM EDT us Margie A Seimet PA-C URINE ORDERABLES Final Resu lt Performing Organization Address City/[facility] Co de Phone Number [address] [place] [address], [place] * Extra Urine Culture (09/11/2024 5:35 PM EDT) Extra Tube Auto Resulted 09/11/2024 7:01 PM EDT [facility] Urine Urine specimen collection, clean catch / Unknown 09/11/2024 5:35 PM EDT 09/11/2024 5:56 PM EDT us Margie A Seimet PA-C URINE ORDERABLES Final Resu lt Performing Organization Address City/[facility] Co de Phone Number [address] [place] [place] [address], [place] * Extra Urine (09/11/2024 5:35 PM EDT) Extra Tube Auto Resulted 09/11/2024 7:01 PM EDT [facility] Urine Urine specimen collection, clean catch / Unknown 09/11/2024 5:35 PM EDT 09/11/2024 5:56 PM EDT us Margie A Seimet PA-C URINE ORDERABLES Final Resu lt [address] [place] [address], [place] * CT thoracic spine without contrast (09/11/2024 4:30 PM EDT) Anatomical Region Laterality Modality MSK, Neuro, Spine, T-spine, Spine Covera N/A Computed Tomography 09/11/2024 4:34 PM EDT Narrative 09/11/2024 4:41 PM EDT STUDY: CT THORACIC SPINE WO CONT INDICATION: left mid back pain. TECHNIQUE: * CT of the thoracic spine, was performed without intravenous contrast. Coronal & sagittal MPR images were generated and reviewed. * All CT scans at this facility use dose modulation, iterative reconstruction, and/or weight based dosing when appropriate to reduce radiation dose to as low as reasonably achievable. FINDINGS: Diffuse bone demineralization. Degenerative changes in the lower cervical spine and in the mid to lower thoracic spine. Bridging osteophytes and syndesmophytes are noted. No evidence of acute fracture. No high-grade bony spinal canal stenosis in the thoracic spine. Mild suspected spinal canal stenosis in the lower cervical spine. Left bony neuroforaminal stenosis at T1-T2. 2 to 3 mm nodule in the right upper lobe (series 613, image 40). 4 mm nodule in the right lower lobe (series 603, image 42). 3 mm nodule in the left upper lobe (image 30). Bibasilar atelectasis. Borderline descending thoracic aortic aneurysm, 3.9 cm. Cholecystectomy. Significant coronary artery atherosclerosis. IMPRESSION: * Moderate degenerative thoracic spondylosis. * Borderline ascending thoracic aortic aneurysm, 3.9 cm. * Multiple small pulmonary nodules. Consider follow-up CT chest in one year if patient has risk factors for malignancy. Finalized by Sarabjit Lin on 09/11/2024 4:41 PM Procedure Note Sarabjit Lin MD - 09/11/2024 STUDY: CT THORACIC SPINE WO CONT INDICATION: left mid back pain. TECHNIQUE: * CT of the thoracic spine, was performed without intravenous contrast.Coronal & sagittal MPR images were generated and reviewed. * All CT scans at this facility use dose modulation, iterativereconstruction, and/or weight based dosing when appropriate to reduceradiation dose to as low as reasonably achievable. FINDINGS: Diffuse bone demineralization. Degenerative changes in the lower cervical spine and in the mid to lowerthoracic spine. Bridging osteophytes and syndesmophytes are noted. No evidence of acute fracture. No high-grade bony spinal canal stenosis in the thoracic spine. Mildsuspected spinal canal stenosis in the lower cervical spine. Left bonyneuroforaminal stenosis at T1-T2. 2 to 3 mm nodule in the right upper lobe (series 613, image 40). 4 mmnodule in the right lower lobe (series 603, image 42). 3 mm nodule in theleft upper lobe (image 30). Bibasilar atelectasis. Borderline descending thoracic aortic aneurysm, 3.9 cm. Cholecystectomy.Significant coronary artery atherosclerosis. IMPRESSION: * Moderate degenerative thoracic spondylosis. * Borderline ascending thoracic aortic aneurysm, 3.9 cm. * Multiple small pulmonary nodules. Consider follow-up CT chest in oneyear if patient has risk factors for malignancy. Finalized by Sarabjit Lin on 09/11/2024 4:41 PM Margie Wilson PA-C IMUbaldo CT ORDERABLES Final Res ult * CT cervical spine without contrast (09/11/2024 4:29 PM EDT) Anatomical Region Laterality Modality MSK, Neuro, Spine, C-spine, Spine Covera N/A Computed Tomography 09/11/2024 4:31 PM EDT Narrative 09/11/2024 4:32 PM EDT CLINICAL INFORMATION: left neck pain TECHNIQUE: CT CERVICAL SPINE WO CONT CT images of the cervical spine were obtained. There are moderate to severe cervical degenerative changes. No prevertebral soft tissue swelling. Lung apices are clear. No acute cervical spine fracture identified. IMPRESSION: Moderate to severe degenerative changes. All CT scans at this facility use dose modulation, iterative reconstruction, and/or weight based dosing when appropriate to reduce radiation dose to as low as reasonably achievable. Finalized by Hernandez Graf MD on 09/11/2024 4:32 PM Procedure Note Hernandez Graf MD - 09/11/2024 CLINICAL INFORMATION: left neck pain TECHNIQUE: CT CERVICAL SPINE WO CONT CT images of the cervical spine were obtained. There are moderate tosevere cervical degenerative changes. No prevertebral soft tissueswelling. Lung apices are clear. No acute cervical spine fractureidentified. IMPRESSION: Moderate to severe degenerative changes. All CT scans at this facility use dose modulation, iterativereconstruction, and/or weight based dosing when appropriate to reduceradiation dose to as low as reasonably achievable. Finalized by Hernandez Graf MD on 09/11/2024 4:32 PM Margie Wilson PA-C IMUbaldo CT ORDERABLES Final Res ult * CT brain without contrast (09/11/2024 4:29 PM EDT) Anatomical Region Laterality Modality Neuro, Head, Head and Neck, Neuro Covera N/A Computed Tomography 09/11/2024 4:30 PM EDT Narrative 09/11/2024 4:33 PM EDT STUDY: CT BRAIN WO CONT INDICATION: Headache. TECHNIQUE: * CT head was performed without intravenous contrast using the standard protocol. Automated exposure control was utilized. * All CT scans at this facility use dose modulation, iterative reconstruction, and/or weight based dosing when appropriate to reduce radiation dose to as low as reasonably achievable. FINDINGS: No evidence of acute intracranial hemorrhage, mass effect, midline shift, or extra-axial fluid collection. Mild diffuse parenchymal atrophy. Ventricles, sulci and cisterns are otherwise unremarkable. Partially empty sella. Isidro-white matter differentiation is preserved. Orbits and globes appear unremarkable. Soft tissues are unremarkable. Atherosclerotic plaque is noted in the carotid siphons bilaterally. Secretions in the left sphenoid sinus. Probably chronic and trapped fluid in the left mastoid air cells posteriorly. No evidence of aggressive osseous lesion. IMPRESSION: * No acute intracranial abnormality, by CT. MRI is more sensitive for evaluation of ischemia or subtle parenchymal abnormalities. * Partially empty sella. This is nonspecific examination setting of radiographic intracranial hypertension. Finalized by Sarabjit Lin on 09/11/2024 4:33 PM Procedure Note Sarabjit Lin MD - 09/11/2024 STUDY: CT BRAIN WO CONT INDICATION: Headache. TECHNIQUE: * CT head was performed without intravenous contrast using the standardprotocol. Automated exposure control was utilized. * All CT scans at this facility use dose modulation, iterativereconstruction, and/or weight based dosing when appropriate to reduceradiation dose to as low as reasonably achievable. FINDINGS: No evidence of acute intracranial hemorrhage, mass effect, midline shift,or extra-axial fluid collection. Mild diffuse parenchymal atrophy.Ventricles, sulci and cisterns are otherwise unremarkable. Partially emptysella. Isidro-white matter differentiation is preserved. Orbits and globes appear unremarkable. Soft tissues are unremarkable. Atherosclerotic plaque is noted in the carotid siphons bilaterally.Secretions in the left sphenoid sinus. Probably chronic and trapped fluidin the left mastoid air cells posteriorly. No evidence of aggressiveosseous lesion. IMPRESSION: * No acute intracranial abnormality, by CT. MRI is more sensitive forevaluation of ischemia or subtle parenchymal abnormalities. * Partially empty sella. This is nonspecific examination setting ofradiographic intracranial hypertension. Finalized by Sarabjit Lin on 09/11/2024 4:33 PM Margie Wilson PA-C IMG CT ORDERABLES Final Res ult from Last [address] [place] [address] [place] [address] MEDICARE [facility] Care Teams Splunk Consultant Relationship Specialty Start Date End Date Prem Whitaker MD PCP - General Family Medicine 07/19/19
--- OUTSIDE RECORDS SUMMARY | 2024-10-04 13:17 | XMS_ITS | Encounter Summary ---
Author Organization [facility] Address [id number] [address] [place] [address] Care Team Providers Care Engineering Technician Parking Name Role Phone Prem Whitaker MD Primary Care Provider [phone] Encounter Details Date Type Department Care Team (Latest Contact Info) Description 09/25/2024 Travel Social History Tobacco Use Types Packs/Day Years [...] on file Sexual Orientation Not on file documented as of this encounter Plan of Treatment Upcoming Encounters Date Type Department Care Team (Late st Contact Info) Description 10/15/2024 12:45 PM EDT Appointment [facility] - MRI Imaging [address] [phone] 10/15/2024 1:15 PM EDT Appointment [facility] - MRI Imaging [address] [place] [address] documented as of this encounter Visit Diagnoses Not on filedocumented in this encounter Care Teams Engineering Technician Parking Relationship Specialty Start Date End Date Prem Whitaker MD PCP - General Family Medicine 07/19/19 documented as of this encounter
--- OUTSIDE RECORDS SUMMARY | 2024-10-04 13:17 | XMS_ITS | Encounter Summary ---
Author Organization [facility] Address [id number] [address] [place] [address] Care Team Providers Care Radiology Tech Name Role Phone Prem Whitaker MD Primary Care Provider [phone] Encounter Details Date Type Department Care Team (Late st Contact Info) Description 12/22/2020 Telephone [facility] [place] [address] [place] [address] Philly Norris, HAND FILER BALANCE WHEEL-OPERATION AGENT [address] [place], [place] [id number] Social History Tobacco Use Types Packs/Day Years [...] have Coronavirus / COVID-19? No / Unsure 12/23/2020 5:12 PM EDT documented as of this encounter Miscellaneous Notes * Telephone Encounter - Jose Cope - 12/22/2020 12:08 PM EDT Philly- Patient's [facility] nurse Rosetta called and stated they can not get a blood return. They would like to know what to do from here. Please advise. * Telephone Encounter - ROSY Gonzalez - 12/22/2020 12:08 PM EDT Order for Cathflo can be given to declot line. Is this something I have to call pharmacy personallyand give orders or can you give on my behalf? * Telephone Encounter - Lissett Whitt CMA - 12/22/2020 12:08 PM EDT Left voicemail for Rosetta to call office back. * Telephone Encounter - Jose Cope - 12/22/2020 12:08 PM EDT Rosetta called and stated patient uses [facility] if you could call that into them please. * Telephone Encounter - ROSY Gonzalez - 12/22/2020 12:08 PM EDT Order given for cathflo. Patients insurance does not cover this. Is around 200 dollars out of pocket. Patient could go to ER to have this declotted, which I believe is covered I did given order to [facility] in case patient opts to cover out of pocket expense Please let me know * Telephone Encounter - Jose Cope - 12/22/2020 12:08 PM EDT Noted. * Telephone Encounter - Jose Cope - 12/22/2020 12:08 PM EDT Benito Sargent called and stated under picc is swollen and red, they are trying to avoid ER but wondered if she could go to IR dept and or have an xray. Line is still clotted, no blood return. She stated she will not be using the line until she gets the ok from you. Please advise. * Telephone Encounter - ROSY Gonzalez - 12/22/2020 12:08 PM EDT Patient needs to go to the ER today to be evaluated in person with the symptoms she is stating (redand swollen PICC site), concerning for infection/DVT. She will likely need a Doppler to rule out DVT. Please advise * Telephone Encounter - Jose Cope - 12/22/2020 12:08 PM EDT I called Rosetta and left a vm to call office back. * Telephone Encounter - Jose Cope - 12/22/2020 12:08 PM EDT Rosetta called back and was advised. documented in this encounter Plan of Treatment Upcoming Encounters Date Type Department Care Team (Late st Contact Info) Description 10/15/2024 12:45 PM EDT Appointment [facility] - MRI Imaging [address] [facility] [phone] 10/15/2024 1:15 PM EDT Appointment [facility] - MRI Imaging [address] [place] [phone] documented as of this encounter Visit Diagnoses Not on filedocumented in this encounter Care Teams Radiology Tech Relationship Specialty Start Date End Date Prem Whitaker MD PCP - General Family Medicine 07/19/19 documented as of this encounter
--- OUTSIDE RECORDS SUMMARY | 2024-10-04 13:17 | XMS_ITS | Clinical Summary ---
Author Organization [facility] Address [address] [place] [address] Care Team Providers Care Chlorine Plant Operator Name Role Phone Prem Whitaker MD Primary Care Provider [phone] Allergies Active Allergy Reactions Criticality Noted Date Comments Codeine GI intolerance Low 06/15/2018 Oxycodone-Acetaminophe n Itching Medium 05/17/2023 Sulfa Antibiotics Rash,Swelling,Unknown High 014 swollen lymph nodes , headache Medications clobetasol (Temovate) 0.05 % external solution apply topically to SCALP twice a day for 3 weeks then if needed for FLARES 3 Active cyproheptadine (Periactin) 4 MG tablet take 1 tablet by mouth four times a day if needed for 30 DAYS Active furosemide (Lasix) 20 MG tablet Take 1 tablet by mouth Daily Active levothyroxine (Synthroid, Levoxyl) 50 MCG tablet Take 50 mcg by mouth Daily Active metFORMIN (Glucophage) 500 MG tablet Take 1 tablet by mouth in the morning. Take with meals. Active omeprazole (PriLOSEC) [address] capsule Take 40 mg by mouth Active potassium chloride CR (Klor-Con) 10 MEQ ER tablet take 2 tablets by mouth three times a day with food Active tiZANidine (Zanaflex) 4 MG tablet Active methylPREDNISol one (Medrol Dospak) 4 MG tabletsIndicati ons:Internal derangement of right shoulder Follow schedule on package instructions 21 tablet 4 Active Active Problems No known active problems Social History Tobacco Use Types Packs/Day Years Used Date Smoking Tobacco: Former Cigarettes Smokeless Tobacco: Never Tobacco Cessation:Counseling Given: Not Answered Alcohol Use Standard Drinks/Week Comments Not Currently 0 (1 standard drink = 0.6 oz pur e alcohol) Comments Unknown Sex and Gender Information Value Date Recorded Sex Assigned at Not on file Legal Sex Female 8:12 PM EDT Gender Identity Not on file Sexual Orientation Not on file Last Filed Vital Signs Vital Sign Reading Time Taken Comments Blood Pressure - - Pulse - - Temperature - - Respiratory Rate - - Oxygen Saturation - - Inhaled Oxygen Concentration - - Weight 69.4 kg (153 lb) 09/19/2023 1:17 PM EDT Height 152.4 cm (5') 09/19/2023 1:17 PM EDT Body Mass Index 29.88 09/19/2023 1:17 PM EDT Plan of Treatment Health Maintenance Due Date Last Done Comments Pneumococcal Vaccine: 65+ Years (2 of 2 - PCV) 020 02/23/2019 Influenza Vaccine (#1) 2024 02/23/2019 Insurance MEDICARE [facility] Care Teams Chlorine Plant Operator Relationship Specialty Start Date End Date Prem Whitaker MD PCP - General Family Medicine 05/17/23
--- OUTSIDE RECORDS SUMMARY | 2024-10-04 13:17 | XMS_ITS | Clinical Summary ---
Author Organization [facility] Address [address] [place] [address] Care Team Providers Care Feather Stitcher Name Role Phone Unavailable Primary Care Provider Unavailabl e Allergies Active Allergy Reactions Criticality Noted Date Comments Codeine Vomiting Low 06/15/2018 Oxycodone-Acetaminophen Itching Medium 01/23/2020 Propoxyphene N-Acetaminophen Itching Medium 020 Sulfa (Sulfonamide Antibiotics) Swelling,Rash High 0 07/25/2013 Medications ALPRAZolam (XANAX) 0.25 mg tablet 0 06/12/19 19 Active fluticasone (FLONASE) 50 mcg/actuation nasal spray instill 1 spray into each nostril twice a day 1 04/26/19 19 Active LASIX 40 mg tablet 1 05/23/19 19 Active meloxicam (MOBIC) 15 mg tablet 06/10/19 19 Active metFORMIN (GLUCOPHAGE) 500 mg tablet 1 05/24/19 19 Active Omeprazole 40 mg capsule 06/10/19 19 Active potassium chloride ER (K-DUR, KLOR-CON) 20 mEq tablet 1 03/02/19 19 Active temazepam (RESTORIL) 30 mg cap 0 06/12/19 19 Active triamterene-hydr ochlorothiazide (MAXZIDE) 75-50 mg per tablet 11 05/20/19 19 Active erythromycin ophthalmic ointment Use 1 application in both eyes daily at bedtime. 1 Tube 3 06/16/19 19 Active Additional Information Patient not taking.Reported on 01/28/2020 Azelastine HCl (OPTIVAR) 0.05 % ophthalmic solution Use 1 Drop in both eyes twice daily. 1 Bottle 11 06/16/19 19 Active potassium chloride (K-TAB) 10 mEq tablet potassium chloride ER 10 mEq tablet,extended release Active triamcinolone acetonide (KENALOG 10) 10 mg/mL injection Kenalog 10 mg/mL suspension for injection Active olopatadine (PATANOL) 0.1 % ophthalmic solution Patanol 0.1 % eye drops Active OLANZapine (ZYPREXA) 5 mg tablet olanzapine 5 mg tablet Active hydrOXYzine pamoate (VISTARIL) 25 mg capsule hydroxyzine pamoate 25 mg capsule Active HYDROcodone-acet aminophen (NORCO) 5-325 mg per tablet hydrocodone 5 mg-acetaminophen 325 mg tablet Active Sodium Hyaluronate (ORTHOVISC) 30 mg/2 mL syrg 2 mL. Active fluconazole (DIFLUCAN) 100 mg tablet fluconazole 100 mg tablet Active betamethasone dipropionate (DIPROSONE) 0.05 % cream betamethasone dipropionate 0.05 % topical cream Active aspirin, enteric coated (ASPIRIN, ENTERIC COATED) 81 mg EC tablet q 24 HR. Acti ve tiZANidine HCl 4 mg capsule tizanidine hcl 4 mg tabs Active desvenlafaxine ER (PRISTIQ) 50 mg 24 hr tablet pristiq tab 50mgpristiq Active hydrOXYzine pamoate (VISTARIL) 25 mg capsule hydroxyzine pamoate 25 mg caps Active Sertaconazole Nitrate (ERTACZO) 2 % crea ertaczo cre 2%ertaczo Active diclofenac, EC, (VOLTAREN) 75 mg EC tablet diclofenac sodium 75 mg tablet,delayed release Active ALPRAZolam (XANAX) 0.25 mg tablet alprazolam tab 0.25mgalprazolam Active amitriptyline (ELAVIL) 25 mg tablet amitriptylin tab 25mgamitriptyline hcl Active atorvastatin (LIPITOR) 20 mg tablet atorvastatin tab 20mgatorvastatin calcium Active bimatoprost 0.03% (LATISSE) 0.03 % ophthalmic solution apply 1 drop topically at bedtime 12/03/19 Active cephALEXin (KEFLEX) 500 mg capsule Take 1,000 mg by mouth twice daily. 10/05/19 Active ciprofloxacin HCl (CIPRO) 500 mg tablet Take 500 mg by mouth twice daily. 11/28/19 Active cyproheptadine (PERIACTIN) 4 mg tablet take 1 tablet by mouth twice a day to four times a day 01/18/20 Active lactulose (DUPHALAC, CONSTULOSE) 10 gram/15 mL solution take 30 milliliters by mouth ONE TO TWO TIMES A DAY if needed for constipation 10/05/19 Active metoprolol tartrate, short acting, (LOPRESSOR) 25 mg tablet Take 25 mg by mouth twice daily. 11/04/19 Active phenazopyridine (PYRIDIUM, GERIDIUM) 200 mg tablet Take 200 mg by mouth three times daily. 11/28/19 Active Betamethasone Dipropionate 0.05 % lotion apply topically to SCALP once daily 12/05/19 Active Active Problems No known active problems Family History Medical History Relation Comments Other Father emphyse ma Cataract Mother Hypertension Mother CHF Relation Status Comments Father Mother Social History Tobacco Use Types Packs/Day Years Used Date Smoking Tobacco: Never Alcohol Use Standard Drinks/Week Comments Never 0 (1 standard drink = 0.6 oz pur e alcohol) AUDIT-C Answer Date Recorded Frequency of Alcohol Consumption Never 06/15/2018 Average Number of Drinks Not on file 019 Frequency of Binge Drinking Not on file 05/29 Area Deprivation Index Answer Date Raza rded National Score (1-100), lower number is lower ri sk Not on file 02/03/2020 State Score (1-10), lower number is lower risk N ot on file 02/03/2020 Data from: https://www.neighborhoodatlas.medicine.[facility].edu/. Last address used for calculation Not on file 02/03/2020 Comments Unknown Sex and Gender Information Value Date Recorded Sex Assigned at Not on file Legal Sex Female 9:44 AM EST Gender Identity Not on file Sexual Orientation Not on file Plan of Treatment Health Maintenance Due Date Last Done Comments Anxiety Screening 01/25/1966 Depression Screening 01/25/1966 Hepatitis C Screening 01/25/1966 DTaP,Tdap,Td Vaccine (1 - Tdap) 01/25/1967 Diabetes Screening 01/25/1993 Pneumococcal Vaccine: 50+ (1 of 1 - PCV) 01/25/1998 Shingrix Vaccine (1 of 2) 01/25/1998 Bone Density Screening 01/25/2013 RSV Vaccine (1 - 1-dose 75+ series) 01/25/2023 Advance Directive Discussion 02/29/2024 Influenza Vaccine (#1) 2024 Insurance MEDICARE
--- OUTSIDE RECORDS SUMMARY | 2024-10-04 13:17 | XMS_ITS | Encounter Summary ---
Author Organization [facility] [facility] Address [id number] [address] [place] [address] Care Team Providers Care County Home Demonstration Agent Name Role Phone Prem Whitaker MD Primary Care Provider [phone] Encounter Details Date Type Department Care Team (Late st Contact Info) Description 12/15/2020 Telephone [facility] [place] [address] [place] [address] Philly Norris, MISSION SUPPORT SPECIALIST-SET UP MECHANIC AUTOMATIC LINE [address] [place], [place] [id number] Social History Tobacco Use Types Packs/Day Years [...] have Coronavirus / COVID-19? No / Unsure 12/05/2020 11:25 AM EDT documented as of this encounter Miscellaneous Notes * Telephone Encounter - Jose Cope - 12/15/2020 4:04 PM EDT Philly- Patient's [facility] Nurse Kimberly called and stated patient has been having night sweats and waking up in sweats. She thinks it might be from the IV abx but just wanted to keep you in the loop. She is goingto see the patient tomorrow. Please advise. * Telephone Encounter - ROSY Gonzalez - 12/15/2020 4:04 PM EDT If Patient is having night sweats, fevers, not feeling good she needs to go to the ER for evaluation in person.... Please advise * Telephone Encounter - Jose Cope - 12/15/2020 4:04 PM EDT Kimberly was advised. She stated patient was not feverish and the night sweats started while she was in the hospital. So she thinks it's from the IV antibiotics. * Telephone Encounter - ROSY Gonzalez - 12/15/2020 4:04 PM EDT Patient needs to be evaluated in ER. We cannot determine if the night sweats are being caused by IVantibiotics without in-person evaluation. This could be a sign of worsening infection. If you couldplease advise patient that she needs to report to ER at this time thank you * Telephone Encounter - Jose Cope - 12/15/2020 4:04 PM EDT I called [facility] nurse Kimberly and she was advised. She stated she will tell the patient. documented in this encounter Plan of Treatment Upcoming Encounters Date Type Department Care Team (Late st Contact Info) Description 10/15/2024 12:45 PM EDT Appointment [facility] - MRI Imaging [address] [place] [phone] 10/15/2024 1:15 PM EDT Appointment [facility] - MRI Imaging [address] [place] [phone] documented as of this encounter Visit Diagnoses Not on filedocumented in this encounter Care Teams County Home Demonstration Agent Relationship Specialty Start Date End Date Prem Whitaker MD PCP - General Family Medicine 07/19/19 documented as of this encounter
--- OUTSIDE RECORDS SUMMARY | 2024-10-04 13:17 | XMS_ITS | Clinical Summary ---
Author Organization [facility] Address [address], [address] [place] [address] Care Team Providers Care Leather Finisher Name Role Phone Prem Whitaker MD Primary Care Provider [phone] Allergies Active Allergy Reactions Criticality Noted Date Comments Sulfa Antibiotics 08/29/2020 Medications levothyroxine (SYNTHROID) 50 MCG tablet take 1 tablet by mouth once daily 1 Active potassium chloride (KLOR-CON M) 10 MEQ extended release tablet potassium chloride er 10 meq tbcr Active meloxicam (MOBIC) 15 MG tablet 1 Active triamterene-hyd roCHLOROthiazid e (MAXZIDE-25) 37.5-25 MG per tablet Take 1 tablet by mouth daily Active furosemide (LASIX) 20 MG tablet furosemide 20 mg tablet Active ALPRAZolam (XANAX) 0.25 MG tablet alprazolam 0.25 mg tablet Active temazepam (RESTORIL) 7.5 MG capsule Take 7.5 mg by mouth nightly as needed. Active metFORMIN (GLUCOPHAGE) 500 MG tablet Take 1 tablet by mouth daily (with breakfast) Active omeprazole (PRILOSEC) 10 MG delayed release capsule Take 10 mg by mouth daily Active Family History Medical History Relation Name Comments Arthritis Mother Relation Name Status Comments Mother Social History Tobacco Use Types Packs/Day Years Used Date Smoking Tobacco: Former Alcohol Use Standard Drinks/Week Comments Yes 10 (1 standard drink = 0.6 oz pu re alcohol) Comments Unknown Sex and Gender Information Value Date Recorded Sex Assigned at Not on file Legal Sex Female 5:00 PM EST Gender Identity Not on file Sexual Orientation Not on file Last Filed Vital Signs Vital Sign Reading Time Taken Comments Blood Pressure - - Pulse - - Temperature 36.3 C (97.3 F) 08/29/2020 3:15 PM EDT Respiratory Rate - - Oxygen Saturation - - Inhaled Oxygen Concentration - - Weight 73.5 kg (162 lb) 08/29/2020 3:15 PM EDT Height 157.5 cm (5' 2 ) 08/29/2020 3:15 PM EDT Body Mass Index 29.63 08/29/2020 3:15 PM EDT Plan of Treatment Health Maintenance Due Date Last Done Comments Depression Screen 1960 Hepatitis C screen 01/25/1966 DTaP/Tdap/Td vaccine (1 - Tdap) 01/25/1967 Shingles vaccine (1 of 2) 01/25/1998 DEXA (modify frequency per F RAX score) 01/25/2003 Pneumococcal 50+ years Vacci ne (2 of 2 - PCV) 02/24/2020 02/23/2019 Respiratory Syncytial Virus (RSV) or age 60 yrs+ (1 - 1-dose 75+ series) 01/25/2023 COVID-19 Vaccine (2 - 2023-2 5 season) 2023 04/25/2020 Flu vaccine (#1) 09/28/2024 02/23/2019 Hepatitis A vaccine Aged Out No longe r eligible based on patient's age to complete this topic Hepatitis B vaccine Aged Out No longe r eligible based on patient's age to complete this topic Hib vaccine Aged Out No longer eligi ble based on patient's age to complete this topic Meningococcal (ACWY) vaccine Aged Out No longer eligible based on patient's age to complete this topic Meningococcal B vaccine Aged Out No l onger eligible based on patient's age to complete this topic Polio vaccine Aged Out No longer elig ible based on patient's age to complete this topic Insurance MEDICARE [employer] MEDICARE SUPP MEDICARE [employer] MEDICARE SUPP Care Teams Leather Finisher Relationship Specialty Start Date End Date Prem Whitaker MD [address] [phone] PCP - General Family Medicine 08/29/20
--- OUTSIDE RECORDS SUMMARY | 2024-10-04 13:17 | XMS_ITS | Encounter Summary ---
Author Organization [facility] Address [address] [place] [address] Care Team Providers Care Yard Demurrage Clerk Name Role Phone Prem Whitaker MD Primary Care Provider [phone] Encounter Details Date Type Department Care Team (Late st Contact Info) Description 08/24/2023 External Result Encounter [facility] [address] [facility] [address] [place] [address] Jr. David Valdovinos, [address] [facility] [address] [place] [address] Social History Tobacco Use Types Packs/Day Years Used Date Smoking Tobacco: Former Cigarettes Smokeless Tobacco: Never Alcohol Use Standard Drinks/Week Comments Not Currently 0 (1 standard drink = 0.6 oz pur e alcohol) Comments Unknown Sex and Gender Information Value Date Recorded Sex Assigned at Not on file Legal Sex Female 8:12 PM EDT Gender Identity Not on file Sexual Orientation Not on file documented as of this encounter Plan of Treatment Not on file documented as of this encounter Procedures Procedure Name Priority Date/Time Associated Diagnosis Comments XR HIPS BILATERAL 5+ VW WITH OR WITHOUT PELVIS 08/25/2023 2:57 PM EDT XR LUMBAR SPINE 2-3 VIEWS 08/24/2023 9:34 AM EDT documented in this encounter Results * XR hips bilateral 5+ views (08/25/2023 2:57 PM EDT) Anatomical Region Laterality Modality Lower Extremities, Hip Bilateral Radiograp hic Imaging 08/25/2023 2:57 PM EDT Narrative 08/25/2023 2:56 PM EDT THIS EXAM WAS PERFORMED AT [facility] CLINICAL HISTORY: Acute pain both hips Comparison: None Views: 5 views FINDINGS: * No acute fracture dislocation erosion or periostitis. * Mild decreased disc space of both hips. The some mild lateral marginal spurring of the acetabulum. * Severe degenerative changes lower lumbar spine with large right lateral spurring L4-L5. IMPRESSION: * Degenerative changes as noted. If symptoms persist or patient is nonweightbearing one might consider MRI for further evaluation. Finalized by Brando Dobbins MD on 08/25/2023 2:56 PM Procedure Note Radiology, Radiologist, MD - 08/25/2023 THIS EXAM WAS PERFORMED AT [facility] CLINICAL HISTORY: Acute pain both hips Comparison: None Views: 5 views FINDINGS: * No acute fracture dislocation erosion or periostitis. * Mild decreased disc space of both hips. The some mild lateral marginalspurring of the acetabulum. * Severe degenerative changes lower lumbar spine with large right lateralspurring L4-L5. IMPRESSION: * Degenerative changes as noted. If symptoms persist or patient isnonweightbearing one might consider MRI for further evaluation. Finalized by Brando Dobbins MD on 08/25/2023 2:56 PM Jr. David Valdovinos DO IMG XR PROCEDURES Final Result * XR lumbar spine 2 or 3 views (08/24/2023 9:34 AM EDT) Anatomical Region Laterality Modality Spine, L-spine Radiographic Barbara ging 08/24/2023 9:34 AM EDT Narrative 08/24/2023 9:33 AM EDT THIS EXAM WAS PERFORMED AT [facility] Clinical history: Back pain Lumbar spine: 08/22/2023 COMPARISON: None FINDINGS: 3 views lumbar spine were obtained. 5 lumbar-type vertebra are present with dextroconvex curvature through the lumbar region. There is loss of intervertebral disc height and ossification of longitudinal ligaments. Extensive facet hypertrophic changes are present with lumbar fusion at multiple levels. Patient is status post laminectomies at L3-L5. Impression: Postoperative changes with degenerative findings and dextroconvex curvature. No focal abnormality evident radiographically. Finalized by Shade Escobar MD on 08/24/2023 9:33 AM Procedure Note Radiology, Radiologist, MD - 08/24/2023 THIS EXAM WAS PERFORMED AT [facility] Clinical history: Back pain Lumbar spine: 08/22/2023 COMPARISON: None FINDINGS: 3 views lumbar spine were obtained. 5 lumbar-type vertebra are presentwith dextroconvex curvature through the lumbar region. There is loss ofintervertebral disc height and ossification of longitudinal ligaments.Extensive facet hypertrophic changes are present with lumbar fusion atmultiple levels. Patient is status post laminectomies at L3-L5. Impression: Postoperative changes with degenerative findings and dextroconvexcurvature. No focal abnormality evident radiographically. Finalized by Shade Escobar MD on 08/24/2023 9:33 AM [facility]. David Rahman Stepjimena DO IMG XR PROCEDURES Final Result documented in this encounter Visit Diagnoses Not on filedocumented in this encounter Care Teams Yard Demurrage Clerk Relationship Specialty Start Date End Date Prem Whitaker MD PCP - General Family Medicine 05/17/23 documented as of this encounter
--- NOTE | 2024-10-04 13:19 | MR_ITS ---
The [address] [address] Patient Name: RUTH ALONZO MRN: [id number] date: 1950 Sex: F Assigned Patient Location: MRI Current Patient Location: MRI Accession/Order Number: [id number] Exam Date: 10/04/2024 16:00 Report Date: 10/04/2024 16:12 At the request of: ZELDA LUEVANO MD Procedure: MR wrist LT wo con MR wrist LT wo con 10/04/2024 2:48 PM SIGNS AND SYMPTOMS: Acute left wrist pain after fall with bruising and swelling PROTOCOL: Multiplanar multisequence MR images of the left wrist without IV contrast COMPARISON: None. FINDINGS: Alignment: Normal Fluid: Carpus effusion: None. Distal radioulnar joint effusion: There is an effusion along the distal radioulnar joint. Intrinsic ligaments: Scapholunate: Intact. Lunotriquetral: Intact. Ulnar side: Triangular fibrocartilage: Grossly intact. Lunate facet: Subcortical cystic change and edema is noted. Hamate-lunate: There is subcortical cystic change and edema along the joint space.. Extensor compartment: I: Intact. II: Intact. III: Intact. IV: Intact. V: Intact. : Intact. Flexor compartment: Carpal tunnel: Median nerve: Normal. Flexor retinaculum: Intact. Flexor tendons: Intact. Guyon canal: Normal. Articular: Thumb carpometacarpal joint: Mild degenerative changes are present.. Scaphotrapeziotrapezoidal joint: There is subcortical cystic change and edema. Pisiform-triquetral joint: Normal. Bones (other than subarticular marrow): Significant marrow edema is noted throughout the lunate, L, hamate, and to a lesser extent the scaphoid. Muscles: Normal. Vessels: Normal. Subcutaneous soft tissues: Mild diffuse nonspecific subcutaneous soft tissue swelling is noted. MR/MR wrist LT wo con IMPRESSION: No definite evidence of acute displaced fracture or dislocation. Extensive marrow edema is noted in the carpal bones, greatest in the lunate. There is ongoing clinical concern for acute displaced fracture, follow-up with CT may be helpful. Mild diffuse nonspecific soft tissue swelling is noted. Impression dictated by: Chandrakant Oneill M.D. 10/04/2024 4:12 PM Dictation Location: [place] [address] Electronically authenticated by: [id number] Y Date: 10/04/2024 16:12
[2024-10-09 09:08] LABS: Antinuclear Antibodies, IFA Negative (.)
== END 2024-10-04 13:16 | disposition home or self-care (01) ==
LOC: MRI 13:15
PROVIDERS: PCP Family Medicine; Visit Provider Family Medicine
DX: M25.532 Pain in left wrist (principal); M54.12 Radiculopathy, cervical region; M25.50 Pain in unspecified joint; M50.30 Other cervical disc degeneration, unspecified cervical region; M25.432 Effusion, left wrist
CPT/HCPCS: 36415; 72141; 73221; 86038

== ENCOUNTER 2024-10-31 12:57 | Outpatient (OUT) | payer MEDICARE, SELFPAY ==
--- OUTSIDE RECORDS SUMMARY | 2024-08-20 10:30 | XMS_ITS ---
Author Organization [facility] Address [address] [place] [address] Care Team Providers Care School Curriculum Developer Name Role Phone Prem Whitaker Primary Care Provider Harjeet [facility] [phone] REASON FOR VISIT LEFT MIDDLE TRIGGER FINGER RELEASE Encounters Encounter Location Date Provider Diagnosis [facility] [address] [place] [phone] 08/20/2024 Harjeet Gannon Plan Of Treatment No Information Progress Notes * RUTH ALONZO YDOB:1949 (74 yo F)Acc No.[id number]:08/20/2024 Patient: RUTH SMITH Provider: Denzel Gannon MD :1950 A ge:74 Y S ex:Female Date:08/20/2024 Address:[facility] [address], [id number] Pcp:Prem Whitaker * Images: * Electronic signature of Ronn Gannon MD on 10/31/2024 at 01:05 PM EDT Sign off status: Pending * Provider: Denzel Gannon MD Date: 08/20/2024 Generated for Printi ng/Faxing/eTransmitting on: 10/31/2024 01:05 PM EDT
--- OUTSIDE RECORDS SUMMARY | 2024-09-19 10:00 | XMS_ITS ---
Author Organization [facility] Address [address] [place] [address] Care Team Providers Care Nickel Plant Operator Name Role Phone Prem Whitaker Primary Care Provider Harjeet Allen [facility] [phone] REASON FOR VISIT B/L SHOULDER DJD, THORACIC SPINE Encounters Encounter Location Date Provider Diagnosis [facility] [facility] [address] [address] 09/19/2024 Harjeet Gannon Plan Of Treatment No Information Progress Notes * CHERI RUTH YDOB:1949 (74 yo F)Acc No.[id number]:09/19/2024 Patient: RUTH SMITH Provider: Denzel Gannon MD :1950 A ge:74 Y S ex:Female Date:09/19/2024 Address:[facility] [address], [id number] Pcp:Prem Whitaker Subjective: * Chief Complaints: * 1 . B/L SHOULDER DJD, THORACIC SPINE. * Medical History: Objective: * Vitals: Assessment: Plan: * Treatment: Forms: * Images: * Electronic signature of Ronn Gannon MD on 10/31/2024 at 01:05 PM EDT Sign off status: Pending * Provider: Denzel Gannon MD Date: 09/19/2024 Generated for Printi chanel/Konstantin/eTransmitting on: 10/31/2024 01:05 PM EDT
--- OUTSIDE RECORDS SUMMARY | 2024-10-23 05:31 | XMS_ITS ---
Author Organization [facility] [place] Address [address] [place] [address] Care Team Providers Care Lining Mechanic Name Role Phone Grzegorz Whitaker Primary Care Provider REASON FOR VISIT rf hydrocodone Medications Medication SIG (Take, Route, Frequency, Duration) Notes Start Date End Date Status HYDROcodone-Acetaminophen 5-325 MG 1-2 tablet as needed Orally every 6 hrs for 7 days M51.36 10/23/2024 Active Encounters Encounter Location Date Provider Diagnosis [facility] [address] [place] [address] 10/23/2024 Grzegorz Whitaker Cervical radiculopat hy M54.12 Assessments Encounter Date Diagnosis (ICD Code) Assessment Notes Treatment Notes Treatment Clinical Notes Section Notes 10/23/2024 Cervical radiculopathy (ICD-10 - M54.12) Plan Of Treatment Medication Medication Name Sig Start Date Stop Date Notes HYDROcodone-Acetaminophen 5- 325 MG 1-2 tablet as needed Orally every 6 hrs for 7 days 10/23/2024 Progress Notes * Qian ALONZO YDOB:1949 (74 yo F)Acc No.[id number]:10/23/2024 Patient: Ubaldo GARAY Qian Moreira :1950 A ge:74 Y S ex:Female Address:[place], [address] * Refills Refill HYDROcodone-Acetaminophen Tablet, 5-325 MG, Orally, 56, 1-2 tablet as needed, every 6 hrs, 7 days, Refills=0 * true * Date: Generated for Sofia buchanan/Konstantin/Octavianoitting on: 0 10/31/2024 01:04 PM EDT
--- OUTSIDE RECORDS SUMMARY | 2024-10-31 13:01 | XMS_ITS | Encounter Summary ---
Author Organization [facility] Address [id number] [address] [place] [address] Care Team Providers Care Manufacturing Chief Engineer Name Role Phone Prem Whitaker MD Primary Care Provider [phone] Encounter Details Date Type Department Care Team ([facility] st Contact Info) Description 01/12/2021 [facility] [address] [facility] [address] [place] [address] Jayleen Enrique, REIMBURSEMENT SPEC-MANAGEMENT SERVICES TECHNICIAN [address] [address] [place] [address] Social History Tobacco Use Types Packs/Day Years [...] medicine please notify Jayleen Enrique infectious Disease MANAGEMENT SERVICES TECHNICIAN, so I can place an order to have patient's PICC line removed. Thank you * Telephone Encounter - Jose Gabi Anatoliy - 01/12/2021 9:13 AM EST Jayleen- Patient called to say she is doing better on the Levaquin she does not have any nausea anymore. She stated she will have Oralia her [facility] nurse call us for update and labs. * Telephone Encounter - Jose Cope - 01/12/2021 9:13 AM EST Yordy Barton [facility] nurse, called back and was advised of what labs to pull, and also to pull line since patient is tolerating. * Telephone Encounter - ROSY Bentley - 01/12/2021 9:13 AM EST Okay thank you * Telephone Encounter - Jose Cope - 01/12/2021 9:13 AM EST Patient has an appt today. documented in this encounter Plan of Treatment Not on file documented as of this encounter Results * WBC (01/12/2021 10:30 AM EST) White Blood Cells 6.9 4.0 - 11.0 X10E9/L 01/12/2021 11:08 AM [facility] Serum / Unknown 01/12/2021 1 0:30 AM EST 01/12/2021 11:00 AM EST [facility] REIMBURSEMENT SPEC-MANAGEMENT SERVICES TECHNICIAN LAB BLOOD ORDERABLES F inal Result [address], [place] [address] * Liver panel (01/12/2021 10:30 AM EST) Alkaline phosphatase 93 39 - 130 U/L 01/12/2021 11:19 AM [facility] AST 23 0 - 41 U/L 01/12/2021 11:19 AM [facility] ALT 20 0 - 31 U/L 01/12/2021 11:19 AM [facility] Total Bilirubin 0.5 0.3 - 1.2 mg/dL 01/12/2021 11:19 AM [facility] Bilirubin, direct <0.1 0.0 - 0.4 mg/dL 01/12/2021 11:19 AM [facility] Albumin 3.7 3.2 - 5.3 g/dL 01/12/2021 11:19 AM [facility] Total Protein 7.8 6.0 - 8.0 g/dL 01/12/2021 11:19 AM [facility] Blood Serum / Unknown 01/12/2021 1 0:30 AM EST 01/12/2021 11:00 AM EST [facility] REIMBURSEMENT SPEC-MANAGEMENT SERVICES TECHNICIAN LAB BLOOD ORDERABLES F inal Result [facility] [address] [place] [address] * Platelet count (01/12/2021 10:30 AM EST) Platelets 278 150 - 450 X10E9/L 01/12/2021 11:08 AM [facility] MPV 8.8 7 - 12 fL 01/12/2021 11:08 AM [facility] Blood Serum / Unknown 01/12/2021 1 0:30 AM EST 01/12/2021 11:00 AM EST [facility] REIMBURSEMENT SPEC-MANAGEMENT SERVICES TECHNICIAN LAB BLOOD ORDERABLES F inal Result [address] [address] * (ABNORMAL) Creatinine includes GFR, serum (01/12/2021 10:30 AM EST) Creatinine 1.02(H) 0.40 - 1.00 mg/dL 01/12/2021 11:19 AM [facility] Comment:METHOD TRACEABLE TO IDMS STANDARD GFR MDRD Non Af Amer 53(L) >59 ml/min/1.7 3sq.m 01/12/2021 11:19 AM [facility] GFR MDRD Af Amer >60 >59 ml/min/1.7 3sq.m 01/12/2021 11:19 AM [facility] Serum / Unknown 01/12/2021 1 0:30 AM EST 01/12/2021 11:00 AM EST [employer] REIMBURSEMENT SPEC-MANAGEMENT SERVICES TECHNICIAN LAB BLOOD ORDERABLES F inal Result [address] [address] documented in this encounter Visit Diagnoses Diagnosis Pseudomonas infection- Primary [facility] (current) use of antibiotics documented in this encounter Care Teams Manufacturing Chief Engineer Relationship Specialty Start Date End Date Prem Whitaker MD PCP - General Family Medicine 07/19/19 documented as of this encounter
--- OUTSIDE RECORDS SUMMARY | 2024-10-31 13:01 | XMS_ITS | Encounter Summary ---
Author Organization [facility] Address [id number] [address] [place] [address] Care Team Providers Care Cheese Wrapper Name Role Phone Prem Whitaker MD Primary Care Provider [phone] Encounter Details Date Type Department Care Team ([facility] st Contact Info) Description 01/08/2021 [facility] [address] [facility] [address] [place] [address] Jayleen Enrique, DRIFTMAN-FINANCIAL SERVICE PROFESSIONAL [address] [facility] [address] [place] [address] Social History Tobacco Use Types Packs/Day Years [...] Miscellaneous Notes * Telephone Encounter - Jose Ashley Anatoliy - 01/08/2021 9:20 AM EST ----- [...] 12, 2021. * Telephone Encounter - Jose Ashley Anatoliy - 01/08/2021 9:20 AM EST I called Sissy and she was advised. She stated she will see the patient Tuesday anyways for picc dressing change so she will just pull labs then. And will wait to hear back on the d/c of the line. * Telephone Encounter - Jose Ashley Anatoliy - 01/08/2021 9:20 AM EST Patient is tolerating new med well, no complications. Oralia [facility] nurse from [facility] was advised of labs to pull before line is pulled. Patient will also go to lab Tuesday01/16/21 and get redraw. documented in this encounter Plan of Treatment Not on file documented as of this encounter Visit Diagnoses Not on filedocumented in this encounter Care Teams Cheese Wrapper Relationship Specialty Start Date End Date Prem Whitaker MD PCP - General Family Medicine 07/19/19 documented as of this encounter
--- OUTSIDE RECORDS SUMMARY | 2024-10-31 13:03 | XMS_ITS | Encounter Summary ---
Author Organization [employer] [facility] Address [id number] [address] [place] [address] Care Team Providers Care Instrument Maintenance Supervisor Name Role Phone Prem Whitaker MD Primary Care Provider [phone] Encounter Details Date Type Department Care Team (Late st Contact Info) Description 12/22/2020 Telephone [facility] [place] [address] [facility] [address] [place] [address] Philly Norris, TIN WORKER-PRODUCTION CONTROL SCHEDULER [address] [place], [place] [id number] Social History Tobacco Use Types Packs/Day Years [...] - 12/22/2020 12:08 PM EDT Philly- Patient's [facility] nurse Rosetta called and stated they can [...] on filedocumented in this encounter Care Teams Instrument Maintenance Supervisor Relationship Specialty Start Date End Date Prem Whitaker MD PCP - General Family Medicine 07/19/19 documented as of this encounter
--- OUTSIDE RECORDS SUMMARY | 2024-10-31 13:03 | XMS_ITS | Clinical Summary ---
Author Organization [facility] Address [address], [address] [place] [address] Care Team Providers Care Community Dietitian Name Role Phone Prem Whitaker MD Primary Care Provider [phone] Allergies Active Allergy Reactions Criticality Noted Date [...] [employer] MEDICARE SUPP Care Teams Community Dietitian Relationship Specialty Start Date End Date Prem Whitaker MD [address] [phone] PCP - General Family Medicine 08/29/20
--- OUTSIDE RECORDS SUMMARY | 2024-10-31 13:03 | XMS_ITS | Clinical Summary ---
Author Organization [employer] s tem Address [facility] [id number] [address] [place] [address] Care Team Providers Care Outsole Compressor Name Role Phone Prem Whitaker MD Primary Care Provider [phone] Allergies Active Allergy Reactions Criticality Noted Date [...] Take with meals. 14 tablet 5 Active Active Problems No known active problems Encounters Date Type Department Care Team Description 09/25/2024 Travel 09/18/2024 12:02 PM EDT - 09/18/2024 3:14 PM EDT Emergency [facility] - Emergency [address] [place] [phone] Daniela Coelho MD Musculoskeletal pain (Primary Dx); Wrist sprain, left, initial encounter Discharge Disposition: Home 09/18/2024 Travel 09/14/2024 4:33 PM EDT - 09/14/2024 5:38 PM EDT Emergency [facility] Emergency [address] [place] [phone] Gretchen Sol DO Pain of left upper extremity (Primary Dx) Discharge Disposition: Home 09/14/2024 Travel 09/11/2024 3:29 PM EDT - 09/11/2024 6:37 PM EDT Emergency [facility] - Emergency [address] [place] [phone] Left-sided thoracic back pain, unspecified chronicity (Primary Dx); DDD (degenerative disc disease), cervical; Thoracic degenerative disc disease; Left arm pain; Pulmonary nodules Discharge Disposition: Home 09/11/2024 Travel from Last 3 Months Immunizations Immunization Administration Dates Next Due COVID-19, mRNA, LNP-S, PF, 100mcg/0.5mL Dose Family History Medical History Relation Name Comments Brain cancer Cousin COPD Father Jose Angel Tapia Breast cancer Maternal Aunt 1 Shazia Wilbur Lung cancer Maternal Aunt 1 Shazia Bowles Diabetes Maternal Aunt 2 Jenn Bowles Ovarian cancer Maternal Aunt 3 Pallavi Wilbur Uterine cancer Maternal Aunt 3 Pallavi Wilbur Heart disease Maternal Grandfather RMatthieu Bowles II This does not apply Kidney disease Maternal Grandmother RWendyFaviola Bowles Stroke Maternal Grandmother RWendyFaviola Bowles Diabetes Maternal Uncle 1 Gurinder Bowles Diabetes Maternal Uncle 2 Chandrakant Bowles Pancreatic cancer Maternal Uncle 2 Chandrakant Bowles Arthritis Mother Annette Willie Heart disease Paternal Grandfather Pranay Wilbur Relation Name Status Comments Cousin Father Jose Angel Tapia Maternal Aunt 1 Shazia Nelsonner (Age 48) Maternal Aunt 2 Jenn Wilbur Maternal Aunt 3 Pallavi Bowles Maternal Grandfather RWendyFaviola Wilbur II Maternal Grandmother Blaise Bowles Maternal Uncle 1 Gurinder Wilbur Maternal Uncle 2 Chandrakant Wilbur Mother Annette Wyatts Paternal Grandfather Pranay Wilbur Social History Tobacco Use Types Packs/Day Years [...] 09/18/2024 12:02 PM EDT Plan of Treatment Health Maintenance [...] EDT Type 2 diabetes mellitus without complications ([facility]) QUANTIFERON-TB GOLD PLUS, B Routine 09/25/2024 4:16 PM EDT Type 2 diabetes mellitus without complications ([facility]) ERYTHROCYTE SEDIMENTATION RATE (ESR) Routine 09/25/2024 4:16 PM EDT Type 2 diabetes mellitus without complications ([facility]) COMPREHENSIVE METABOLIC PANEL Routine 09/25/2024 4:16 PM EDT Type 2 diabetes mellitus without complications ([facility]) XR ELBOW LT MIN 3 VWS STAT [...] Gold Plus, B (09/25/2024 4:16 PM EDT) QUANTIFERON-TB GOLD PLUS RESULT Negative Negative 09/27/2024 12:28 PM EDT [facility] Comment: 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 tuberculosis antigens was detected. Latent infection with M. tuberculosis is unlikely. A single negative result does not exclude infection with M. tuberculosis. In patients at high risk for M.tuberculosis infection, a second test should be considered in accordance with the 2017 ATS/IDSA/CDC Clinical Practice Guidelines for Diagnosis of Tuberculosis in Adults and Children [Lewinsohn DM et. al. Clin. Infect. Dis. 2017;64(2):111-115]. The reference range for the 'TB1 Ag minus Nil Result' and 'TB2 Ag minus Nil Result' is an Interferon-gamma level <0.35 IU/mL. TB1 AG MINUS NIL RESULT 0.06 IU/mL 09/27/2024 12:28 PM EDT [facility] TB2 AG MINUS NIL RESULT 0.02 IU/mL 09/27/2024 12:28 PM EDT [facility] MITOGEN MINUS NIL 9.28 IU/mL 09/27/2024 12:28 PM EDT [facility] NIL RESULT 0.02 IU/mL 09/27/2024 12:28 PM EDT [facility] Comment: Test Performed by: [facility] [place] [address] Box Stamper: Ricardo Arroyo Ph.D.; CLIA# [id number] Blood Venous blood / Unknown Venipuncture / Unknown 09/25/2024 4:16 PM EDT 09/25/2024 4:16 PM EDT us Prem Whitaker MD LAB BLOOD ORDERABLES Final Resu lt [facility] [address] [place] [address], [place] * (ABNORMAL) Erythrocyte Sedimentation Rate (ESR) (09/25/2024 4:16 PM EDT) Pathologist [facility] ESR, Erythrocyte Sedimentation Rate 49(H) 0 - 30 mm/h 09/25/2024 10:31 PM EDT [facility] Blood Venous blood / Unknown Venipuncture / Unknown 09/25/2024 4:16 PM EDT 09/25/2024 4:16 PM EDT us Prem Whitaker MD LAB BLOOD ORDERABLES Final Resu lt [facility] [address] [place] [address], [place] [phone] * (ABNORMAL) CBC auto differential (09/25/2024 4:16 PM EDT) WBC 9.0 4 - 11 x10E9/L 09/25/2024 10:07 PM EDT [facility] RBC Count 4.13 3.8 - 5.2 X10E12/L 09/25/2024 10:07 PM EDT [facility] Hemoglobin 10.9(L) 11.7 - 15.5 g/dL 09/25/2024 10:07 PM EDT [facility] Hematocrit 33.5(L) 35 - 47 % 09/25/2024 10:07 PM EDT [facility] MCV 81 80 - 100 fL 09/25/2024 10:07 PM EDT [facility] MCH 26.3(L) 27 - 34 pg 09/25/2024 10:07 PM EDT [facility] MCHC 32.5 32 - 36 g/dL 09/25/2024 10:07 PM EDT [facility] RDW 16.9(H) 11.5 - 15 % 09/25/2024 10:07 PM EDT [facility] Platelet Count 547(H) 150 - 450 X10E9/L 09/25/2024 10:07 PM EDT [facility] MPV 7.7 7 - 12 fL 09/25/2024 10:07 PM EDT [facility] Neutrophils % 74.3 % 09/25/2024 10:07 PM EDT [facility] Lymphocytes % 19.2 % 09/25/2024 10:07 PM EDT [facility] Monocytes % 4.7 % 09/25/2024 10:07 PM EDT [facility] Eosinophils % 1.1 % 09/25/2024 10:07 PM EDT [facility] Basophils % 0.7 % 09/25/2024 10:07 PM EDT [facility] Neutrophils Absolute (A) 6.7(H) 1.5 - 6.6 10*3/uL 09/25/2024 10:07 PM EDT [facility] Lymphocytes Absolute 1.7 1.0 - 3.5 10*3/uL 09/25/2024 10:07 PM EDT [facility] Monocytes Absolute 0.4 0.0 - 0.9 10*3/uL 09/25/2024 10:07 PM EDT [facility] Eosinophils Absolute 0.1 0.0 - 0.4 10*3/uL 09/25/2024 10:07 PM EDT [facility] Basophils Absolute 0.1 0.0 - 0.2 10*3/uL 09/25/2024 10:07 PM EDT [facility] Differential Type AUTOMATED DIFFERENTIAL 09/25/2024 10:07 PM EDT [facility] Blood Venous blood / Unknown Venipuncture / Unknown 09/25/2024 4:16 PM EDT 09/25/2024 4:16 PM EDT us Prem Whitaker MD LAB BLOOD ORDERABLES Final Resu lt [facility] [address] [place] [address], [place] [phone] * Rheumatoid factor (09/25/2024 4:16 PM EDT) RHEUMATOID FACTOR <10 <20 IU/mL 09/25/2024 10:45 PM EDT [facility] Blood Venous blood / Unknown Venipuncture / Unknown 09/25/2024 4:16 PM EDT 09/25/2024 4:16 PM EDT us Prem Whitaker MD LAB BLOOD ORDERABLES Final Resu lt [facility] [address] [place] [address], * (ABNORMAL) Comprehensive metabolic panel (09/25/2024 4:16 PM EDT) SODIUM 138 134 - 146 mmol/L 09/25/2024 10:45 PM EDT [facility] POTASSIUM 4.0 3.5 - 5.0 mmol/L 09/25/2024 10:45 PM EDT [facility] CHLORIDE 99 98 - 109 mmol/L 09/25/2024 10:45 PM EDT [facility] CARBON DIOXIDE 24 22 - 32 mmol/L 09/25/2024 10:45 PM EDT [facility] ANION GAP 15 5 - 15 mmol/L 09/25/2024 10:45 PM EDT [facility] BLOOD UREA NITROGEN 17 5 - 27 mg/dL 09/25/2024 10:45 PM EDT [facility] CREATININE 1.23(H) 0.40 - 1.00 mg/dL 09/25/2024 10:45 PM EDT [facility] Comment:METHOD TRACEABLE TO IDMS STANDARD GLUCOSE 98 65 - 99 mg/dL 09/25/2024 10:45 PM EDT [facility] CALCIUM 8.7 8.5 - 10.5 mg/dL 09/25/2024 10:45 PM EDT [facility] TOTAL PROTEIN 6.9 6.0 - 8.0 g/dL 09/25/2024 10:45 PM EDT [facility] ALBUMIN 3.4 3.2 - 5.3 g/dL 09/25/2024 10:45 PM EDT [facility] ALKALINE PHOSPHATASE 178(H) 39 - 130 U/L 09/25/2024 10:45 PM EDT [facility] AST 11 <=41 U/L 09/25/2024 10:45 PM EDT [facility] ALT 9 <=31 U/L 09/25/2024 10:45 PM EDT [facility] BILIRUBIN,TOTAL 0.6 0.3 - 1.2 mg/dL 09/25/2024 10:45 PM EDT [facility] EGFR Non-Race Dependent 46(L) >=60 ml/min/1.7 3sq.m 09/25/2024 10:45 PM EDT [facility] Comment: Reported eGFR is based on the CKD-EPI 2020 equation that does not use a race coefficient. Blood Venous blood / Unknown Venipuncture / Unknown 09/25/2024 4:16 PM EDT 09/25/2024 4:16 PM EDT us Prem Whitaker MD LAB BLOOD ORDERABLES Final Resu lt [facility] [address] [place] [address], [place] [phone] * X-ray elbow left minimum 3 views [...] Carlos Ventura MD on 09/18/2024 1:14 PM us Eliz López DIVISION ENGINEER-TICKET MACHINE OPERATOR IMG DIAGNOSTIC IMAGING ORD ERABLES Final Result [...] Carlos Ventura MD on 09/18/2024 12:58 PM us Eliz López DIVISION ENGINEER-TICKET MACHINE OPERATOR IMG DIAGNOSTIC IMAGING ORD ERABLES Final Result [...] MD on 09/18/2024 12:59 PM Eliz López APRNPRAKASH [facility] [place] DIAGNOSTIC IMAGING ORD ERABLES Final Result * [...] Shannon MD on 09/18/2024 12:59 PM Eliz GALLEGOS [facility] [place] DIAGNOSTIC IMAGING ORD ERABLES Final Result * [...] Pranay Coats MD on 09/18/2024 12:56 PM Eliz López DIVISION ENGINEER-TICKET MACHINE OPERATOR IMG DIAGNOSTIC IMAGING ORD ERABLES Final Result * (ABNORMAL) POCT Nursing Urine Macroscopic UA (09/11/2024 5:46 PM EDT) POC Urine Specific [place] 1.015 1.010, 1.015, 1.020, 1.025 09/11/2024 5:39 PM EDT [facility] POC Urine Leukocyte Esterase Negative Negative 09/11/2024 5:39 PM EDT [facility] POC Urine Nitrite Positive(A) Negative 09/11/2024 5:39 PM EDT [facility] POC Urine pH 5.5 5.0, 6.0, 6.5, 7.0, 7.5, 8.0, 8.5, 5.5 09/11/2024 5:39 PM EDT [facility] POC Urine Protein 30 mg/dL(A) Negative 09/11/2024 5:39 PM EDT [facility] POC Urine Glucose Negative Negative 09/11/2024 5:39 PM EDT [facility] POC Urine Ketones Negative Negative 09/11/2024 5:39 PM EDT [facility] POC Urine Urobilinogen 1.0 E.U./dL 09/11/2024 5:39 PM EDT [facility] POC Urine Bilirubin Small(A) Negative 09/11/2024 5:39 PM EDT [facility] POC Urine Blood/HGB Negative Negative 09/11/2024 5:39 PM EDT [facility] Urine 09/11/2024 5:46 PM EDT 09/11/2024 5:39 PM EDT us POINT OF CARE TEST ORDERABLES Fi nal Result Performing Organization Address [facility] Co de Phone Number [address] [place] [address], [place] * Extra Urine [place] (09/11/2024 5:35 PM EDT) Extra Tube Auto Resulted 09/11/2024 7:01 PM EDT [facility] Urine Urine specimen collection, clean catch / Unknown 09/11/2024 5:35 PM EDT 09/11/2024 5:56 PM EDT us Margie Wilson PA-C URINE ORDERABLES Final Resu lt Performing Organization Address City/[facility]/ZIP Co de Phone Number [address] [place] [address], [place] * Extra Urine Culture (09/11/2024 5:35 PM EDT) Extra Tube Auto Resulted 09/11/2024 7:01 PM EDT [facility] Urine Urine specimen collection, clean catch / Unknown 09/11/2024 5:35 PM EDT 09/11/2024 5:56 PM EDT us Margie A Seimet PA-C URINE ORDERABLES Final Resu lt Performing Organization Address City/[facility]/ZIP Co de Phone Number [facility] [address] [place] [address] [place] [address], [place] * Extra Urine (09/11/2024 5:35 PM EDT) Extra Tube Auto Resulted 09/11/2024 7:01 PM EDT [facility] Urine Urine specimen collection, clean catch / Unknown 09/11/2024 5:35 PM EDT 09/11/2024 5:56 PM EDT us Margie Ashley Seimet PA-C URINE ORDERABLES Final Resu lt Performing Organization Address [facility] Co de Phone Number [address] [place] [address], [place] * CT thoracic spine without contrast [...] Sarabjit Lin on 09/11/2024 4:[address] ORDERABLES Final Res ult * CT [...] on 09/11/2024 4:32 PM Margie Wilson PA-C Ubaldo CT ORDERABLES Final Res ult * CT [...] Res ult from Last 3 Months Insurance MEDICARE [facility] Care Teams Outsole Compressor Relationship Specialty Start Date End Date Prem Whitaker MD PCP - General Family Medicine 07/19/19
--- OUTSIDE RECORDS SUMMARY | 2024-10-31 13:05 | XMS_ITS | Clinical Summary ---
Author Organization [facility] Address [address] [place] [address] Care Team Providers Care Sales Product Manager Name Role Phone Prem Whitaker MD Primary Care Provider [phone] Allergies Active Allergy Reactions Criticality Noted Date Comments Codeine GI intolerance Low 06/15/2018 Oxycodone-Acetaminophe n Itching Medium 05/17/2023 Sulfa Antibiotics Rash,Swelling,Unknown High 014 swollen lymph nodes , headache Medications cyproheptadine (Periactin) 4 MG tablet take 1 [...] Active tiZANidine (Zanaflex) 4 MG tablet Active clobetasol (Temovate) 0.05 % external solution apply topically to SCALP twice a day for 3 weeks then if needed for FLARES 09/24/19 23 025 Discontin ued(Thera py completed ) methylPREDNISol one (Medrol Dospak) 4 MG tabletsIndicati ons:Internal derangement of right shoulder Follow schedule on package instructions 21 tablet 09/19/19 24 025 Discontin ued(Thera py completed ) Active Problems No known active problems Encounters Date Type Department Care Team Description 10/16/2024 Telephone [facility] [address] [facility] [place] [address] Irvin Carr, JONATHON referral to specialist in [place] 10/15/2024 11:00 AM EDT Office Visit [facility] [address] [facility] [place] [address] Irvin Carr NP Primary osteoarthritis of left hand (Primary Dx); Stiffness of finger joint of left hand 10/15/2024 Travel 10/11/2024 Travel from Last 3 Months Social History Tobacco Use Types Packs/Day Years [...] Influenza Vaccine (#1) 2024 02/23/2019 Insurance MEDICARE [facility] Care Teams Sales Product Manager Relationship Specialty Start Date End Date Prem Whitaker MD [address] [place] [phone] PCP - General Family Medicine 10/15/24
--- OUTSIDE RECORDS SUMMARY | 2024-10-31 13:06 | XMS_ITS | Encounter Summary ---
Author Organization [employer] Address [id number] [address] [place] [address] Care Team Providers Care Intelligence Intern Name Role Phone Prem Whitaker MD Primary Care Provider [phone] Encounter Details Date Type Department Care Team (Late st Contact Info) Description 12/15/2020 Telephone [facility] [place] [address] [facility] [address] [place] [address] Philly Norris, HIGH SCHOOL COORDINATOR-PLATER HOT DIP [address] [place], [place] [id number] Social History Tobacco Use Types Packs/Day Years [...] - 12/15/2020 4:04 PM EDT Philly- Patient's [facility] Nurse Kimberly called and stated patient has [...] - 12/15/2020 4:04 PM EDT I called [facility] nurse Kimberly and she was advised. She stated she will tell the patient. documented in this encounter Plan of Treatment Not on file documented as of this encounter Visit Diagnoses Not on filedocumented in this encounter Care Teams Intelligence Intern Relationship Specialty Start Date End Date Prem Whitaker MD PCP - General Family Medicine 07/19/19 documented as of this encounter
--- OUTSIDE RECORDS SUMMARY | 2024-10-31 13:06 | XMS_ITS | Encounter Summary ---
Author Organization [facility] Address [address] [place] [address] Care Team Providers Care Keg Inspector Name Role Phone Prem Whitaker MD Primary Care Provider [phone] Prem Whitaker MD Primary Care Provider [phone] Encounter Details Date Type Department Care Team (Late st Contact Info) Description 08/24/2023 External Result Encounter [facility] [address] [facility] [address] [place] [address] Jr. David Valdovinos DO [address] [facility] [address] [place] [address] Social History Tobacco Use Types Packs/Day Years [...] PM EDT [facility] CLINICAL HISTORY: Acute pain both hips [...] - 08/25/2023 THIS EXAM [facility] PERFOR[facility] CLINICAL HISTORY: Acute pain both hips [...] AM EDT THIS EXAM [facility] PERFOR[facility] Clinical history: Back pain Lumbar spine: [...] 08/24/2023 9:33 AM Procedure Note Radiology, Radiologist, - 08/24/2023 THIS EXAM WAS PERFOR[facility] Clinical history: Back pain Lumbar spine: [...] Shade Escobar MD on 08/24/2023 9:33 AM [facility] IMG XR PROCEDURES Final Result documented in this encounter Visit Diagnoses Not on filedocumented in this encounter Care Teams Keg Inspector Relationship Specialty Start Date End Date Prem Whitaker MD PCP - General Family Medicine 05/17/23 10/14/24 Prem Whitaker MD [address] [place] [address] PCP - General Family Medicine 10/15/24 documented as of this encounter
--- OUTSIDE RECORDS SUMMARY | 2024-10-31 13:06 | XMS_ITS | Clinical Summary ---
Author Organization [facility] Address [address] [place] [address] Care Team Providers Care Change Analyst Name Role Phone Unavailable Primary Care Provider [...] N ot on file 02/03/2020 Data from: [email or web address] Last address used for calculation Not on [...]
--- OUTSIDE RECORDS SUMMARY | 2024-10-31 13:06 | XMS_ITS | Encounter Summary ---
Author Organization [facility] Address [address] [place] [place] [address] Care Team Providers Care Spring Tacker Name Role Phone Unavailable Primary Care Provider Unavailabl e Encounter Details Date Type Department Care Team (Late st Contact Info) Description 10/17/[address] [place] [address] Jacqueline Bunch MA Social History Tobacco Use Types Packs/Day Years Used Date Smoking Tobacco: Never Assessed Comments Unknown Sex and Gender Information Value Date Recorded Sex Assigned at Not on file Legal Sex Female 9:09 PM EDT Gender Identity Not on file Sexual Orientation Not on file documented as of this encounter Miscellaneous Notes * Telephone Encounter - Jacqueline Bunch MA - 10/17/2024 1:28 PM EDT Patient called to schedule a new patient appointment with our office. Patient wants to be seen for: Primary osteoarthritis, left hand, Stiffness of left hand Patient had X ray and MRI done at [facility] Patient has Not had any surgery or procedures on this body part Patient has not been seen by any other orthopaedic surgeons for this issue This appointment IS NOT related to a work related injury documented in this encounter Plan of Treatment Upcoming Encounters Date Type Department Care Team (Late st Contact Info) Description 12/11/2024 3:00 PM EDT Office Visit [address] [place] [address] Doc Mazariegos MD [address] [place] [address] documented as of this encounter Visit Diagnoses Not on filedocumented in this encounter
--- OUTSIDE RECORDS SUMMARY | 2024-10-31 13:06 | XMS_ITS | Clinical Summary ---
Author Organization [facility] Address [address] [place] [address] Care Team Providers Care Plant Maintenance Worker Name Role Phone Unavailable Primary Care Provider Unavailabl e Encounters Date Type Department Care Team Description 10/17/[address] [place] [address] Jacqueline Bunch MA from Last 3 Months Social History Tobacco Use Types Packs/Day Years Used Date Smoking Tobacco: Never Assessed Comments Unknown Sex and Gender Information Value Date Recorded Sex Assigned at Not on file Legal Sex Female 9:09 PM EDT Gender Identity Not on file Sexual Orientation Not on file Plan of Treatment Upcoming Encounters Date Type Department Care Team (Late st Contact Info) Description 12/11/2024 3:00 PM EDT Office Visit [address] [place] [address] Doc Mazariegos MD [address] [place] [address] Health Maintenance Due Date Last Done Comments Medicare Annual Wellness (AWV) 1950 Depression Screening 1960 Adult Tetanus 01/25/1970 Zoster Vaccines (1 of 2) 01/25/1998 Fall Risk Screening 01/25/2013 Pneumococcal Vaccine: 50+ Ye ars (2 of 2 - PCV) 02/24/2020 02/23/2019 COVID-19 Vaccine (2 - 2024-2 6 season) 2024 04/25/2020 Influenza Vaccine (#1) 2024 02/23/2019 HIB Vaccines Aged Out No longer eligi ble based on patient's age to complete this topic HPV Vaccines Aged Out No longer eligi ble based on patient's age to complete this topic IPV Vaccines Aged Out No longer eligi ble based on patient's age to complete this topic Meningococcal B Vaccine Aged Out No l onger eligible based on patient's age to complete this topic Meningococcal Vaccine Aged Out No alvin von eligible based on patient's age to complete this topic Rotavirus Vaccines Aged Out No longer eligible based on patient's age to complete this topic Insurance MEDICARE [facility]
--- NOTE | 2024-10-31 13:18 | CT_ITS ---
The [address] [address] Patient Name: RUTH ALONZO MRN: [id number] date: 1950 Sex: F Assigned Patient Location: LAB Current Patient Location: LAB Accession/Order Number: [id number] Exam Date: 10/31/2024 14:55 Report Date: 10/31/2024 15:19 At the request of: ZELDA LUEVANO MD Procedure: CT abdomen pelvis w con CT ABDOMEN AND PELVIS WITH INTRAVENOUS CONTRAST: CLINICAL HISTORY: Abdominal Pain , Fever Of Unknown Origin COMPARISON: None TECHNIQUE: Spiral images were obtained through the abdomen and pelvis following the administration of intravenous contrast. This CT exam was performed using one or more following dose reduction techniques: Automated exposure control, adjustment of the mA and/or kV according to patient size, or use of iterative reconstruction technique. FINDINGS: Lung Bases: [Mild lung scarring.] Organs:Gallbladder has been removed. Liver portal vein pancreas spleen and adrenal glands all appear unremarkable. No enhancing renal mass or hydronephrosis. Small cyst left kidney. Aorta appears normal in caliber.[ GI: Stomach is grossly unremarkable. Duodenal diverticulum. Small bowel appears nondilated. Appendix is normal. No acute colonic abnormality. Pelvis:[Urinary bladder is grossly unremarkable. Uterus has been removed. No adnexal mass.] Peritoneum/Retroperitoneum:No free air free fluid or lymphadenopathy.[ Abd wall/Bones:Abdominal wall demonstrate no acute findings. Osseous structures demonstrate degenerative change. Scoliosis.[ CT/CT abdomen pelvis w con IMPRESSION: No acute findings. Impression dictated by: Ravi Valencia Jr., D.O. 10/31/2024 3:19 PM Dictation Location: [employer] Electronically authenticated by: [id number] Date: 10/31/2024 15:19
--- NOTE | 2024-10-31 13:18 | CT_ITS ---
The [address] [address] Patient Name: RUTH ALONZO MRN: [id number] date: 1950 Sex: F Assigned Patient Location: LAB Current Patient Location: Accession/Order Number: [id number] Exam Date: 10/31/2024 13:35 Report Date: 11/01/2024 13:31 At the request of: ZELDA LUEVANO MD Procedure: CT wrist LT wo con CT wrist LT wo con 10/31/2024 1:49 PM SIGNS AND SYMPTOMS: Chronic left wrist pain after fall TECHNIQUE: Multidetector CT axial slices of the left wrist without IV contrast. Multiplanar an 3-D reformats were performed and viewed on a separate workstation and reviewed to further define anatomy and possible pathology. CT was performed with one or more of the following dose reduction techniques: Automated exposure control, adjustment of the mA and/or kV according to patient size, or use of iterative reconstruction technique. COMPARISON: 10/04/2024 FINDINGS: There is narrowing of the radiocarpal joint. There is subcortical cystic change and and along the distal radius. No acute displaced fracture. There is narrowing of the first carpometacarpal junction. No dislocation or subluxation. There is diffuse soft tissue swelling similar to the prior MRI. CT/CT wrist LT wo con IMPRESSION: No acute displaced fracture. Degenerative changes are noted in the radiocarpal joint and the base of the thumb. There is diffuse soft tissue swelling. Impression dictated by: Chandrakant Oneill M.D. 11/01/2024 1:31 PM Dictation Location: [place] [address] Electronically authenticated by: [id number] Y Date: 11/01/2024 13:31
--- NOTE | 2024-10-31 13:18 | CT_ITS ---
The [address] [address] Patient Name: RUTH ALONZO MRN: [facility]:[id number] date: 1950 Sex: F Assigned Patient Location: LAB Current Patient Location: LAB Accession/Order Number: [id number] Exam Date: 10/31/2024 13:35 Report Date: 10/31/2024 14:24 At the request of: ZLEDA LUEVANO MD Procedure: CT chest wo con CT CHEST WITHOUT IV CONTRAST: CLINICAL HISTORY: Dyspnea, Fever Of Unknown Origin COMPARISON: CT chest 09/09/2024 TECHNIQUE: Spiral images were obtained through the chest without IV contrast. This CT exam was performed using one or more following dose reduction techniques: Automated exposure control, adjustment of the mA and/or kV according to patient size, or use of iterative reconstruction technique. FINDINGS: Mediastinum:Thoracic aorta appears normal in caliber. Pulmonary trunk appears nondilated. No pleural effusion or lymphadenopathy. The esophagus is grossly unremarkable. Lungs:No consolidation pneumothorax or pleural effusion. Mild lung scarring. Stable 3 mm nodule involving the lingula series 4 image 52. Abd:No acute findings. Soft tissues/Bones: No acute findings. Osseous structures demonstrate degenerative change. CT/CT chest wo con IMPRESSION: No acute process. Stable 3 mm nodule involving the lingula. Impression dictated by: Ravi Valencia Jr., D.O. 10/31/2024 2:24 PM Dictation Location: [place] [address] Electronically authenticated by: [id number] Y Date: 10/31/2024 14:24
[2024-10-31 13:28] LABS: Estimated GFR (African America 57 (>=60 mL/min/1.73m^2); Estimated GFR (Non-African Ame 47 (>=60 mL/min/1.73m^2)
== END 2024-10-31 12:58 | disposition home or self-care (01) ==
LOC: LAB 12:57
PROVIDERS: Pathology Anatomic Pathology & Clinical Pathology; PCP Family Medicine; Visit Provider Family Medicine
DX: R10.9 Unspecified abdominal pain (principal); R06.00 Dyspnea, unspecified; R50.9 Fever, unspecified; M25.532 Pain in left wrist; M19.032 Primary osteoarthritis, left wrist; R91.1 Solitary pulmonary nodule
CPT/HCPCS: 36415; 71250; 73200; 74177; 76376; 82565; 87040; Q9967

== ENCOUNTER 2024-11-29 15:41 | Outpatient (OUT) | payer MEDICARE, SELFPAY ==
--- OUTSIDE RECORDS SUMMARY | 2024-08-06 06:40 | XMS_ITS ---
Author Organization [facility] Address [address] [place] [address] Care Team Providers Care Web Machine Tender Name Role Phone Prem Whitaker Primary Care Provider UnavailHarjeet Garcia Unavailable [phone] Radha Escobar Unavailable Allergies Allergen (clinical drug ingredient) Drug/Non Drug Allergy documented on EMR Reaction Allergy Type Onset Date Status sulfa (uncoded) Unknown Allergy Acti ve Reason For Referral Reason TED................P LEASE OBTAIN AUTHORIZATION FOR LEFT MIDDLE FINGER TRIGGER FINGER RELEASE Diagnosis 1 Trigger finger, left middle finger (M65.332) Referral Organization [facility] Referring Provider First Name Harjeet Referring Provider Last Name Teressa Referring Provider Speciality Orthopedic Surgery Referred Organization [facility] Referred Address [address] [place], [place],[address], Procedure 1 Tendon sheath incisi on ([address]58) General Notes Savannah Duncan 025 01:04:45 PM >PER [facility], PATIENT IS ACTIVE PART A AND PART B, NO AUTH REQUIRED MA NOTIFIED REF FAXED TO [place] Referral Priority Routine REASON FOR VISIT LEFT SHOULDER/LEFT MIDDLE FINGER Medications Medication SIG (Take, Route, Fr equency, Duration) Notes Start Date End Date Status Xanax Active potassium chloride A ctive fluticasone Active metFORMIN Active omeprazole Active diclofenac sodium 75 mg 1 tab(s) orally 2 times a day for 30 days 08/06/2024 Active Vitamin D3 Active aspirin Active Lasix Active levothyroxine Active triamterene Active Problems Problem Type SNOMED Code ICD Code Onset Dates Problem Status W/U Status Risk Notes Problem [id number] Primary osteoarthriti s, right shoulder (M19.011) Active confirmed Problem [id number] Primary osteoarthriti s, left shoulder (M19.012) Active confirmed Encounters Encounter Location Date Provider Diagnosis [facility] [address] [place] [address] [place] [address] 08/06/2024 Radha [facility] Primary osteoarthritis, right shoulder M19.011 ; Primary osteoarthritis, left shoulder M19.012 and Trigger finger, left middle finger M65.332 Assessments Encounter Date Diagnosis (ICD Code) Assessment Notes Treatment Notes Treatment Clinical Notes Section Notes 08/06/2024 Primary osteoarthriti s, right shoulder (ICD-10 - M19.011) Bilateral glenohumeral osteoarthritis Left third trigger finger Bilateral rotator cuff tears 08/06/2024 Primary osteoarthriti s, left shoulder (ICD-10 - M19.012) Bilateral glenohumeral osteoarthritis Left third trigger finger Bilateral rotator cuff tears 08/06/2024 Trigger finger, left middle finger (ICD-10 - M65.332) Bilateral glenohumeral osteoarthritis Left third trigger finger Bilateral rotator cuff tears 08/06/2024 Other Patient evaluated by myself and Dr. Gannon today. I discussed patient's x-ray and exam results with her and regarding her shoulders we discussed surgical versus conservative management. Patient would like to try steroid injections today and I did provide her with subacromial injections. She is not diabetic. I am also going to give her a prescription for diclofenac that she can take if the steroid injections do not help. We will have her follow-up in 6 weeks for her shoulders and she did mention she was having some mid back pain and we can get thoracic x-rays. For her left third trigger finger we did discuss conservative measures but patient was happy with her trigger finger release on her right and does not want to do injections in the hand. We did discuss a trigger finger release with Dr. Gannon. I discussed the procedure with the patient at length, including all potential risk, benefits, and complications. I answered all the patients questions to their satisfaction. No guarantees were given as to surgical outcome. The patient has elected to go forward with surgical intervention, and this will be scheduled to be performed at a date and time to be determined. Bilateral glenohumeral osteoarthritis Left third trigger finger Bilateral rotator cuff tears Plan Of Treatment Medication Medication Name Sig Start Date Stop Date Notes diclofenac sodium 75 mg 1 tab(s) orally 2 times a day for 30 days 08/06/2024 Treatment Notes Assessment Notes Other Patient evaluated by myself and Dr. Gannon today. I discussed patient's x-ray and exam results with her and regarding her shoulders we discussed surgical versus conservative management. Patient would like to try steroid injections today and I did provide her with subacromial injections. She is not diabetic. I am also going to give her a prescription for diclofenac that she can take if the steroid injections do not help. We will have her follow-up in 6 weeks for her shoulders and she did mention she was having some mid back pain and we can get thoracic x-rays. For her left third trigger finger we did discuss conservative measures but patient was happy with her trigger finger release on her right and does not want to do injections in the hand. We did discuss a trigger finger release with Dr. Gannon. I discussed the procedure with the patient at length, including all potential risk, benefits, and complications. I answered all the patients questions to their satisfaction. No guarantees were given as to surgical outcome. The patient has elected to go forward with surgical intervention, and this will be scheduled to be performed at a date and time to be determined. Pending Test Test Name Order Date CBC with diff, BMP, EKG 08/06/2024 Hemoglobin A1C 08/06/2024 SCC- FINGER 3 VIEW LEFT 54811 08/06/2024 SCC- SHOULDER 3 VIEW RIGHT 08765 025 SCC- SHOULDER 3 VIEW LEFT 05622 08/07/19 25 Referrals Referral Date Details 08/06/2024 08/06/2024, TED..... ...........PLEASE OBTAIN AUTHORIZATION FOR LEFT MIDDLE FINGER TRIGGER FINGER RELEASE, [address] [place], [address], Next Appt Details Follow Up: POST OP, Reason: Medications Administered Medication Instructions Date of Administration Dosage Notes BUPIVACAINE 08/06/2024 4 mL lidocaine 08/06/2024 4 mL Depo-Medrol 08/06/2024 2 mL Progress Notes * RUTH ALONZO YDOB:1949 (74 yo F)Acc No.[id number]:08/06/2024 Patient: RUTH SMITH Provider: MEKHI Starkey :1950 A ge:74 Y S ex:Female Date:08/06/2024 Address:[address] [place] [address] [facility], [id number] Pcp:Prem Whitaker Subjective: * Chief Complaints: * 1 . LEFT SHOULDER/LEFT MIDDLE FINGER. * HPI: G maryuri Follow Up Information: Patient is a 74-year-old female who presents to the office today with complaints of bilateral shoulder pain, right greater than left and left third digit pain and triggering. Patient states the finger started triggering a few months ago and she had previously gotten a right middle trigger finger release with Dr. Marte that she was happy with. In regards to her shoulders this has been a progressive pain she has been developing. She did have a right rotator cuff repair with Dr. Valdovinos in 2011. She has tried Mobic in the past but stopped due to side effects of swelling issues. She has been trying to take aspirin for pain relief, sometimes 4 at a time. Patient is right-handed. G maryuri Info per Patient Report: Have you seen another doctor in this practice? N o. S wendy affected is B ilateral. J oint or body part affected is s houlder, wrist/hand. P ain occurred c hronic. W ork related: N o. M otor vehicle accident: N o. T hird libertarian responsibility: N o. Q uality of pain is s evere. T ype of pain: s harp. * ROS: C onstitutional: Fatigue Y es. G astrointestinal: Ulcer/Reflux Y es. M usculoskeletal: Joint pain Y es. J oint stiffness Y es. ? C ardiovascular: Leg/Ankle Swelling Y es. N eurological: Numbness/ Tingling Yes. W eakness/ Paralysis of Feet/Hands Yes. * Medical History: H ypothyroidism, GI Problems: , Anxiety. * Social History: E xercise regularly: Yes . * Medications: T aking levothyroxine , Taking Vitamin D3 , Taking aspirin , Taking metFORMIN , Taking omeprazole , Taking fluticasone , Taking Xanax , Taking potassium chloride , Taking triamterene , Taking Lasix , Medication List reviewed and reconciled with the patient * Allergies: S ulfa. Objective: * Vitals: * Examination: G eneral examination: O n exam patient is in no distress, age-appropriate, alert and oriented x 3. On inspection skin is intact, no erythema, no warmth to touch. Bilateral shoulders have full forward active flexion, internal rotation is to PSIS bilaterally. Supraspinatus and external rotation are 4/5, internal rotation 5/5. For the left hand the A1 shaun is tender with palpation in the third digit. Patient can make a full fist, middle finger actively triggers on exam with pain. Patient has full finger extension. Positive Katz/Neer's bilaterally. Bilateral upper extremities are grossly distally neurovascularly intact. X -ray Imaging Studies: 3 view x-rays of the bilateral shoulders were taken in office today and reviewed interpreted by myself as negative for fracture or dislocation. Degenerative changes at the acromioclavicular and glenohumeral joints noted with glenohumeral joint space loss and osteophytes. 3 view x-rays of the left third digit were taken in office today and reviewed interpreted by myself as negative for fracture or dislocation. Degenerative changes at the PIP and DIP joints. Assessment: * Assessment: 1. P rimary osteoarthritis, left shoulder - M19.012 (Primary) 2 . P rimary osteoarthritis, right shoulder - M19.011 3 . T celebrity manager finger, left middle finger - M65.332 Bilateral glenohumeral osteo arthritis Left third trigger finger Bilateral rotator cuff tears Plan: * Treatment: 2. T celebrity manager finger, left middle finger Referral To: Reason:TED................PLEASE OBTAIN AUTHORIZATION FOR LEFT MIDDLE FINGER TRIGGER FINGER RELEASE 3. O thers L AB: CBC with diff, BMP, EKG L AB: Hemoglobin A1C I maging: SCC- FINGER 3 VIEW LEFT 67193 I maging: SCC- SHOULDER 3 VIEW RIGHT 77755 I maging: SCC- SHOULDER 3 VIEW LEFT 58791 Notes: Patient evaluated by myself and Dr. Gannon today. I discussed patient's x-ray and exam results with her and regarding her shoulders we discussed surgical versus conservative management. Patient would like to try steroid injections today and I did provide her with subacromial injections. She is not diabetic. I am also going to give her a prescription for diclofenac that she can take if the steroid injections do not help. We will have her follow-up in 6 weeks for her shoulders and she did mention she was having some mid back pain and we can get thoracic x-rays. For her left third trigger finger we did discuss conservative measures but patient was happy with her trigger finger release on her right and does not want to do injections in the hand. We did discuss a trigger finger release with Dr. Gannon. I discussed the procedure with the patient at length, including all potential risk, benefits, and complications. I answered all the patients questions to their satisfaction. No guarantees were given as to surgical outcome. The patient has elected to go forward with surgical intervention, and this will be scheduled to be performed at a date and time to be determined. * Procedures: B ilateral shoulder subacromial space was injected using Depo/Medrol 40 mg mixed with local anesthetic. The patient tolerated the injection well. * Therapeutic Injections: BUPIVACAINE : 4 mL (Route: Other/Miscellaneous) given by Radha Escobar PA-C ? LIDOCAINE : 4 mL given by Radha Escobar PA-C Depo-Medrol : 2 mL (Route: Other/Miscellaneous) given by Radha Escobar PA-C * Procedure Codes: 2 0610 Injection major joint/bursa (bilateral), Modifiers: 50 , J1010 Injection, Methylprednisolone Acetate 1 mg, Units: 80.00 , Modifiers: JZ , 39191 X-ray Shoulder, 2 view 26, Modifiers: 26 , [place], [address] X-ray Shoulder, 2 view TC, Modifiers: TC , [place], [address] X-ray Fingers, 2 view 26, Modifiers: 26 , F2, 70051 X-ray Fingers, 2 view TC, Modifiers: TC , F2, 41544 X-ray Shoulder, 2 view 26, Modifiers: 26 , [place], [address] X-ray Shoulder, 2 view TC, Modifiers: TC , LT * Preventive Medicine: MIPS Measures: C MS139 Fall Risk S creening: N o falls in the past year.? * Follow Up: P OST OP Forms: * Images: * Electronic signature of Ovidio Escobar PA-C on 11/29/2024 at 03:43 PM EDT Sign off status: Pending * Provider: MEKHI Starkey Date: 0 08/06/2024 Generated for Sofia buchanan/Konstantin/Samson on: 1 03:43 PM EDT History and Physical Notes * HPI (History of Present Illness) Category Sub-Category Detail Notes Category Not es General Follow Up Information Patient is a 74-year-old female who presents to the office today with complaints of bilateral shoulder pain, right greater than left and left third digit pain and triggering. Patient states the finger started triggering a few months ago and she had previously gotten a right middle trigger finger release with Dr. Marte that she was happy with. In regards to her shoulders this has been a progressive pain she has been developing. She did have a right rotator cuff repair with Dr. Valdovinos in 2011. She has tried Mobic in the past but stopped due to side effects of swelling issues. She has been trying to take aspirin for pain relief, sometimes 4 at a time. Patient is right-handed. General Info per Patient Report Side affected is Bilateral Joint or body part affected is shoulder, wrist/hand Pain occurred chronic Work related: No Motor vehicle accident: No Quality of pain is severe Type of pain: sharp Have you seen another doctor in this pra ctice? No Third libertarian responsibility: No Examination Category Sub-Category Detail Notes Category Not es General examination On exam patient is in no distress, age-appropriate, alert and oriented x 3. On inspection skin is intact, no erythema, no warmth to touch. Bilateral shoulders have full forward active flexion, internal rotation is to PSIS bilaterally. Supraspinatus and external rotation are 4/5, internal rotation 5/5. For the left hand the A1 shaun is tender with palpation in the third digit. Patient can make a full fist, middle finger actively triggers on exam with pain. Patient has full finger extension. Positive Katz/Neer's bilaterally. Bilateral upper extremities are grossly distally neurovascularly intact. X-ray Imaging Studies 3 view x-rays of the bilateral shoulders were taken in office today and reviewed interpreted by myself as negative for fracture or dislocation. Degenerative changes at the acromioclavicular and glenohumeral joints noted with glenohumeral joint space loss and osteophytes. 3 view x-rays of the left third digit were taken in office today and reviewed interpreted by myself as negative for fracture or dislocation. Degenerative changes at the PIP and DIP joints. Consultation Request Notes Referral Date Referring Provider Referred Provider Not es 08/06/2024 Harjeet Gannon NAR........ ........PLEASE OBTAIN AUTHORIZATION FOR LEFT MIDDLE FINGER TRIGGER FINGER RELEASE
--- OUTSIDE RECORDS SUMMARY | 2024-08-20 10:30 | XMS_ITS ---
Author Organization [facility] Address [address] [place] [address] Care Team Providers Care Decal Transferrer Name Role Phone Prem Whitaker Primary Care Provider Harjeet [facility] [phone] REASON FOR VISIT LEFT MIDDLE TRIGGER FINGER RELEASE Encounters Encounter Location Date Provider Diagnosis [facility] [address] [place] [phone] 08/20/2024 Harjeet Gannon Plan Of Treatment No Information Progress Notes * RUTH ALONZO YDOB:1949 (74 yo F)Acc No.[id number]:08/20/2024 Patient: RUTH SMITH Provider: Denzel Gannon MD :1950 A ge:74 Y S ex:Female Date:08/20/2024 Address:[facility] [address], [id number] Pcp:Prem Whitaker * Images: * Electronic signature of Ronn Gannon MD on 11/29/2024 at 03:44 PM EDT Sign off status: Pending * Provider: Denzel Gannon MD Date: 0 08/20/2024 Generated for Printi ng/Faxing/eTransmitting on: 1 03:44 PM EDT
--- OUTSIDE RECORDS SUMMARY | 2024-09-19 10:00 | XMS_ITS ---
Author Organization [facility] Address [address] [place] [address] Care Team Providers Care Team Primary Care Physician Name Role Phone Prem Whitaker Primary Care Provider Harjeet Allen [facility] [phone] REASON FOR VISIT B/L SHOULDER DJD, THORACIC SPINE Encounters Encounter Location Date Provider Diagnosis [facility] Office [address] [address] 09/19/2024 Harjeet Gannon Plan Of Treatment No Information Progress Notes * RUTH ALONZO YDOB:1949 (74 yo F)Acc No.[id number]:09/19/2024 Patient: RUTH SMITH Provider: Denzel Gannon MD :1950 A ge:74 Y S ex:Female Date:09/19/2024 Address:[facility] [address], [id number] Pcp:Prem Whitaker Subjective: * Chief Complaints: * 1 . B/L SHOULDER DJD, THORACIC SPINE. * Medical History: Objective: * Vitals: Assessment: Plan: * Treatment: Forms: * Images: * Electronic signature of Rnon Gannon MD on 11/29/2024 at 03:44 PM EDT Sign off status: Pending * Provider: Denzel Gannon MD Date: 0 09/19/2024 Generated for Printi ng/Fadevyn/eTransmitting on: 03:44 PM EDT
--- OUTSIDE RECORDS SUMMARY | 2024-11-29 15:44 | XMS_ITS | Encounter Summary ---
Author Organization [facility] Address [facility]-[id number] [address] [place] [address] Care Team Providers Care Salt Refiner Name Role Phone Prem Whitaker MD Primary Care Provider [phone] Encounter Details Date Type Department Care Team ([facility] st Contact Info) Description 01/12/2021 [facility]phone [facility] [address] [facility] [address] [place] [address] Jayleen Enrique, MACHINE CRATER-SYSTEM SUPPORT SPECIALIST [address] [facility] [address] [place] [address] Social History Tobacco Use Types Packs/Day Years [...] medicine please notify Jayleen Enrique infectious Disease SYSTEM SUPPORT SPECIALIST, so I can place an order to have patient's PICC line removed. Thank you * Telephone Encounter - Jose Gabi Anatoliy - 01/12/2021 9:13 AM EST Jayleen- Patient called to say she is doing better on the Levaquin she does not have any nausea anymore. She stated she will have Oralia her [facility] nurse call us for update and labs. * Telephone Encounter - Jose Cope - 01/12/2021 9:13 AM EST Yordy Barton [facility] nurse, called back and was advised of [...] 4.0 - 11.0 X10E9/L 01/12/2021 11:08 AM [facility] Serum / Unknown 01/12/2021 1 0:30 AM EST 01/12/2021 11:00 AM EST [facility] MACHINE CRATER-SYSTEM SUPPORT SPECIALIST LAB BLOOD ORDERABLES F inal Result [address], [place] [address] * Liver panel (01/12/2021 10:30 AM EST) Alkaline phosphatase 93 39 - 130 U/L 01/12/2021 11:19 AM [facility] AST 23 0 - 41 U/L 01/12/2021 11:19 AM [facility] ALT 20 0 - 31 U/L 01/12/2021 11:19 AM [facility] Total Bilirubin 0.5 0.3 - 1.2 mg/dL 01/12/2021 11:19 AM [facility] Bilirubin, direct <0.1 0.0 - 0.4 mg/dL 01/12/2021 11:19 AM [facility] Albumin 3.7 3.2 - 5.3 g/dL 01/12/2021 11:19 AM [facility] Total Protein 7.8 6.0 - 8.0 g/dL 01/12/2021 11:19 AM [facility] Blood Serum / Unknown 01/12/2021 1 0:30 AM EST 01/12/2021 11:00 AM EST [facility] MACHINE CRATER-SYSTEM SUPPORT SPECIALIST LAB BLOOD ORDERABLES F inal Result [facility] [address] [place] [address] * Platelet count (01/12/2021 10:30 AM EST) Platelets 278 150 - 450 X10E9/L 01/12/2021 11:08 AM [facility] MPV 8.8 7 - 12 fL 01/12/2021 11:08 AM [facility] Blood Serum / Unknown 01/12/2021 1 0:30 AM EST 01/12/2021 11:00 AM EST [facility] [employer] MACHINE CRATER-SYSTEM SUPPORT SPECIALIST LAB BLOOD ORDERABLES F inal Result [address] [address] * (ABNORMAL) Creatinine includes GFR, serum (01/12/2021 10:30 AM EST) Creatinine 1.02(H) 0.40 - 1.00 mg/dL 01/12/2021 11:19 AM [facility] Comment:METHOD TRACEABLE TO IDMS STANDARD GFR MDRD Non Af Amer 53(L) >59 ml/min/1.7 3sq.m 01/12/2021 11:19 AM [facility] GFR MDRD Af Amer >60 >59 ml/min/1.7 3sq.m 01/12/2021 11:19 AM [facility] Serum / Unknown 01/12/2021 1 0:30 AM EST 01/12/2021 11:00 AM EST [facility] [employer] MACHINE CRATER-SYSTEM SUPPORT SPECIALIST LAB BLOOD ORDERABLES F inal Result [address] [address] documented in this encounter Visit Diagnoses Diagnosis Pseudomonas infection- Primary [facility] (current) use of antibiotics documented in this encounter Care Teams Salt Refiner Relationship Specialty Start Date End Date Prem Whitaker MD PCP - General Family Medicine 07/19/19 documented as of this encounter
--- OUTSIDE RECORDS SUMMARY | 2024-11-29 15:44 | XMS_ITS | Encounter Summary ---
Author Organization [employer] [facility] Address [facility]-[id number] [address] [place] [address] Care Team Providers Care Wastewater Supervisor Name Role Phone Prem Whitaker MD Primary Care Provider [phone] Encounter Details Date Type Department Care Team (Late st Contact Info) Description 12/22/2020 Telephone [facility] [place] [address] [facility] [address] [place] [address] Philly Norris, BITUMINOUS PAVING MACHINE OPERATOR-ASSEMBLING INSPECTOR [address] [place], [place] [id number] Social History Tobacco Use Types Packs/Day Years [...] - 12/22/2020 12:08 PM EDT [place]- Patient's [facility] nurse Rosetta called and stated they [...] on filedocumented in this encounter Care Teams Wastewater Supervisor Relationship Specialty Start Date End Date Prem Whitaker MD PCP - General Family Medicine 07/19/19 documented as of this encounter
--- OUTSIDE RECORDS SUMMARY | 2024-11-29 15:44 | XMS_ITS | Patient Health Record ---
Author Organization [facility] in [place] Address [address] [place] [address] Care Team Prov[address] Care Court Attendant Name Role Phone Grzegorz Whitaker Primary Care Provider Allergies Allergen (clinical drug ingredient) Drug/Non Drug Allergy documented on EMR Reaction Allergy Type Onset Date Status acetaminophen / oxycodone oxyCODONE-Acetaminop hen Unknown Drug Allergy Active codeine Codeine Unknown Drug Allergy Active Substance with sulfonamide structure and antibacterial mechanism of action (substance) Sulfa Antibiotics anaphylaxis Drug Allergy Active Results Component Value Reference Range Notes UA DIP NONAUTO WO MICRO (810 02) - IN OFFICE Reviewed date:09/09/2024 04:40:42 PM Interpretation: Performing Lab: Notes/Report: COLOR yellow CLARITY clear GLUCOSE NEG BILIRUBIN NEG KETONE NEG SPECIFIC GRAVITY 1.005 BLOOD NEG PH 5 PROTEIN NEG UROBILINOGEN NEG NITRITE NEG LEUKOCYTE ESTERASE TRACE Blood Culture 1 Reviewed date:11/05/2024 07:27:10 PM Interpretation: Performing Lab: Notes/Report: [facility] , Blood Culture 1 See Below For Report Blood Culture 1 NG5D NO GROWTH AT 5 DAYS.^NO GROWTH AT 5 DAYS. Performing Lab: see note ML - [facility] LB Blood Culture 2 Reviewed date:11/05/2024 07:27:10 PM Interpretation: Performing Lab: Notes/Report: [facility] , Blood Culture 2 See Below For Report NG5D NO GROWTH AT 5 DAYS.^NO GROWTH AT 5 DAYS. Blood Culture 2 Performing Lab: see note ML - [facility] LB CT WRIST LT WO CON Reviewed date:11/01/2024 03:35:34 PM Interpretation: Performing Lab: Notes/Report: Source Facility: [place] [address] [place] [address] CT Scan Report Signed Patient: QIAN JUAREZ MR#: [id number] : 1950 Acct:[id number] Age/Sex: 74 / F ADM Date: 10/31/24 Loc: LAB Attending Dr: Zelda Whitaker M.D. Ordering Physician: Zelda Whitaker M.D. Date of Service: 10/31/24 Procedure(s): CT wrist LT wo con Accession Number(s): [id number] cc: Zelda Whitaker M.D. [place] [address] Patient Name: QIAN JUAREZ MRN: [id number] date: 1950 Sex: F Assigned Patient Location: LAB Current Patient Location: Accession/Order Number: [id number] Exam Date: 10/31/2024 13:35 Report Date: 11/01/2024 13:31 At the request of: ZELDA WHITAKER MD Procedure: CT wrist LT wo con CT wrist LT wo con 10/31/2024 1:49 PM SIGNS AND SYMPTOMS: Chronic left wrist pain after fall TECHNIQUE: Multidetector CT axial slices of the left wrist without IV contrast. Multiplanar an 3-D reformats were performed and viewed on a separate workstation and reviewed to further define anatomy and possible pathology. CT was performed with one or more of the following dose reduction techniques: Automated exposure control, adjustment of the mA and/or kV according to patient size, or use of iterative reconstruction technique. COMPARISON: 10/04/2024 FINDINGS: There is narrowing of the radiocarpal joint. There is subcortical cystic change and and along the distal radius. No acute displaced fracture. There is narrowing of the first carpometacarpal junction. No dislocation or subluxation. There is diffuse soft tissue swelling similar to the prior MRI. CT/CT wrist LT wo con IMPRESSION: No acute displaced fracture. Degenerative changes are noted in the radiocarpal joint and the base of the thumb. There is diffuse soft tissue swelling. Impression dictated by: Chandrakant Oneill M.D. 11/01/2024 1:31 PM Dictation Location: [place] [address] Electronically authenticated by: [id number] Y Date: 11/01/2024 13:31 Dictated By: Chandrakant Oneill M.D. Signed By: 11/01/24 1334 DD/ 133 TD/TT: Analytical Lead: VITAMIN D 25 HYD TOT Reviewed date:02/27/2024 08:23:20 PM Interpretation: Performing Lab:[facility] [address] [place] [address], [address], [place]. [address] PH:[phone] Notes/Report: VITAMIN D 25 HYD TOT 22.7 30-100 ng/mL - Sufficiency 30-100 ng/mL established by the color specialist of this kit. Toxicity >100 ng/mL and children. NOTE: A pediatric reference range has not been PERFORMED AT [address],[place] [address] The [place] [employer] recommends Deficiency <20 ng/mL a Vitamin D level of = or >20ng/mL in infants Vitamin D status 25 [place] Vitamin D Insufficiency 20-29 ng/mL D-DIMER Reviewed date:09/09/2024 05:30:04 PM Interpretation: Performing Lab: Notes/Report: [facility] , D Dimer 1.49 <=0.59 mg/L FEU hospitalization. reference range. D-Dimers may also be elevated for a variety event cannot be diagnosed with certainty on the basis of the or anticoagulant therapy, stress, and generalized thromboembolic events can be variable due to localization, disease, cancer, liver disease, infection, inflammation, hematoma, DIC, trauma, post-surgery, diabetes, thrombolytic of disorders including advanced age, , coronary Increases in D-Dimer concentration observed with size, and age of the thrombus. Therefore, a thromboembolic RESULTS CALLED TO MUSTAPHA RAMESH NP Performing Lab: see note ML - [facility] LB LACTATE or LACTIC ACID Reviewed date:09/09/2024 05:30:04 PM Interpretation: Performing Lab: Notes/Report: [facility] , Lactate/Lactic Acid 1.1 0.4-2.0 mmol/L Performing Lab: see note ML - [facility] LB PROF 14(COMP METB) Reviewed date:09/09/2024 05:30:04 PM Interpretation: Performing Lab: Notes/Report: [facility] , Sodium 135 136-145 mmol/L Potassium 2.8 3.5-5.1 mmol/L RESULTS DOHERTY D TO MUSTAPHA RAMESH NP Chloride 93 98-107 mmol/L Carbon Dioxide 29.8 21.0-32.0 mmol/L Anion Gap 15.0 Glucose 142 74-106 mg/dL Blood Urea Nitrogen 17.0 7.0-18.0 mg/dL Creatinine 1.21 0.55-1.02 mg/dL Estimated GFR ( Luisana 52 >=60 mL/min/1.73m 2 Estimated GFR (Non- Corin 43 >=60 mL/min/1.73m 2 BUN Creatinine Ratio 14.0 Calcium 9.2 8.5-10.1 mg/dL Bilirubin Total 0.4 0.2-1.0 mg/dL Aspartate Amino Transferase 15 15-37 U/L Alanine Aminotransferase 7 14-59 U/L Alkaline Phosphatase 135 46-116 U/L Total Protein 8.1 6.4-8.2 g/dL Albumin Level 2.7 3.4-5.0 g/dL Globulin 5.4 Albumin Globulin Ratio 0.5 Performing Lab: see note ML - [facility] Prothrombin Time INR Reviewed date:09/09/2024 05:30:04 PM Interpretation: Performing Lab: Notes/Report: [facility] , Prothrombin Time 12.1 9.0-11.6 sec INR 1.16 2.5-3.5 FOR PROSTHETIC HEART VALVE REPLACEMENT DESIRED INR: 2.5-3.5 RECURRENT THROMBOSIS 2.0-3.0 CONDITIONS NOT LISTED BELOW Performing Lab: see note ML - [facility] LB Troponin I High Sensitivity Reviewed date:09/09/2024 05:30:04 PM Interpretation: Performing Lab: Notes/Report: [facility] , Troponin I High Sensitivity 4.6 4.0-51.3 pg/mL WITH OTHER DIAGNOSTIC AND CLINICAL INFORMATION. PERCENTILE OF cTnI DISTRIBUTION IN A REFERENCE POPULATION, 99TH PERCENTILE = 51.4 PG/ML CUT-OFF POINTS HAVE BEEN ESTABLISHED BASED ON THE FOURTH DIAGNOSIS. NOTE: HIGH-SENSITIVITY TROPONIN ASSAY IS NOT INTENDED TO BE USED IN ISOLATION BUT SHOULD BE INTERPRETED IN CONJUNCTION REFERENCE LIMIT (URL) OF TROPONIN, DEFINED THE 99TH UNIVERSAL DEFINITION OF MYOCARDIAL INFARCTION. THE UPPER HAS BEEN CONFIRMED THE DECISION THRESHOLD FOR VT Performing Lab: see note ML - [facility] LB ECG 12 lead Reviewed date:09/11/2024 05:09:00 PM Interpretation: Performing Lab: Notes/Report: Source Facility: [place] [address] [place] [address] Electrocardiograph Report Signed Patient: QIAN JUAREZ MR#: [id number] : 1950 Acct:[id number] Age/Sex: 74 / F ADM Date: 09/09/24 Loc: ER Attending Dr: Ordering Physician: Ashley Garcia Date of Service: 09/09/24 Procedure(s): ECG 12 lead Accession Number(s): [id number] cc: [facility] Test Date: 2024-09-09 Pat Name: QIAN JUAREZ Department: Room: - 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 Signed By: 09/11/24 1635 DD/ 1625 TD/TT: Analytical Lead: MARY LOU chest 1V Reviewed date:09/10/2024 12:34:47 PM Interpretation: Performing Lab: Notes/Report: Source Facility: [facility]-[address] [place] [address] XRay Report Signed Patient: QIAN JUAREZ MR#: [id number] : 1950 Acct:[id number] Age/Sex: 74 / F ADM Date: 09/09/24 Loc: ER Attending Dr: Ordering Physician: Ashley Garcia Date of Service: 09/09/24 Procedure(s): XR chest 1V Accession Number(s): [id number] cc: Zelda Whitaker M.D.; Ashley Garcia [place] [address] Patient Name: QIAN JUAREZ MRN: [id number] date: 1950 Sex: F Assigned Patient Location: ER Current Patient Location: ER Accession/Order Number: [id number] Exam Date: 09/09/2024 17:46 Report Date: 09/09/2024 17:46 At the request of: ASHLEY GARCIA MD Procedure: XR chest 1V XR chest 1V 09/09/2024 5:41 PM SIGNS AND SYMPTOMS: cp PROTOCOL: Frontal radiograph of the chest COMPARISON: 05/14/2022 FINDINGS: The trachea is midline. The heart and mediastinal structures are within normal limits. The lung parenchyma is clear. The bony thorax is intact. Degenerative changes are noted in the shoulders and thoracic spine. XR/XR chest 1V IMPRESSION: No acute cardiopulmonary pathology. Impression dictated by: Chandrakant Oneill M.D. 09/09/2024 5:46 PM Dictation Location: [place] [address] Electronically authenticated by: [id number] Y Date: 09/09/2024 17:46 Dictated By: Chandrakant Oneill M.D. 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 Signed By: 09/11/24 1635 DD/ 1654 TD/TT: Analytical Lead: JORDAN Reviewed date:09/26/2024 03:53:09 PM Interpretation: Performing Lab: Notes/Report: ESR, ERYTHROCYTE SEDIMENTATION RATE 49 0-30 mm/h PERFORMED AT [facility] [address],[place] [address] CBC AND AUTO DIFF * Reviewed date:09/26/2024 03:53:09 PM Interpretation: Performing Lab: Notes/Report: WBC 9.0 4-11 x10E9/L RBC COUNT 4.13 3.8-5.2 X10E12/L HEMOGLOBIN 10.9 11.7-15.5 g/dL HEMATOCRIT 33.5 35-47 % MCV 81 80-100 fL MCH 26.3 27-34 pg MCHC 32.5 32-36 g/dL RDW 16.9 11.5-15 % PLATELET COUNT 547 150-450 X10E9/L MPV 7.7 7-12 fL NEUTROPHILS RELATIVE PERCENT BY AUTOMATED COUNT 74.3 LYMPHOCYTES RELATIVE PERCENT BY AUTOMATED COUNT 19.2 MONOCYTES RELATIVE PERCENT BY AUTOMATED COUNT 4.7 EOSINOPHILS RELATIVE PERCENT BY AUTOMATED COUNT 1.1 BASOPHILS RELATIVE PERCENT BY AUTOMATED COUNT 0.7 NEUTROPHILS ABSOLUTE COUNT BY AUTOMATED COUNT 6.7 1.5-6.6 10*3/uL LYMPHOCYTES ABSOLUTE COUNT (10*3/UL) BY AUTOMATED COUNT 1.7 1.0-3.5 10*3/uL MONOCYTES ABSOLUTE COUNT (10*3/UL) BY AUTOMATED COUNT 0.4 0.0-0.9 10*3/uL EOSINOPHILS ABSOLUTE COUNT (10*3/UL) BY AUTOMATED COUNT 0.1 0.0-0.4 10*3/uL BASOPHILS ABSOLUTE COUNT (10*3/UL) BY AUTOMATED COUNT 0.1 0.0-0.2 10*3/uL CELLAVISION DIFFERENTIAL TYPE AUTOMATED DIFFERENTIAL PERFORMED AT [address], [place] [address] COMPREHENSIVE METABOLIC PANE L Reviewed date:09/26/2024 03:53:09 PM Interpretation: Performing Lab: Notes/Report: SODIUM 138 134-146 mmol/L POTASSIUM 4.0 3.5-5.0 mmol/L CHLORIDE 99 98-109 mmol/L CARBON DIOXIDE 24 22-32 mmol/L ANION GAP 15 5-15 mmol/L BLOOD UREA NITROGEN 17 5-27 mg/dL CREATININE 1.23 0.40-1.00 mg/dL METHOD TRACE ABLE TO [facility] STANDARD GLUCOSE 98 65-99 mg/dL CALCIUM 8.7 8.5-10.5 mg/dL TOTAL PROTEIN 6.9 6.0-8.0 g/dL ALBUMIN 3.4 3.2-5.3 g/dL ALKALINE PHOSPHATASE 178 39-130 U/L AST 11 <=41 U/L ALT 9 <=31 U/L BILIRUBIN,TOTAL 0.6 0.3-1.2 mg/dL EGFR (CKD-EPI) NON-RACE DEPENDENT 46 >=60 ml/min/1.73sq.m not use a race coefficient. PERFORMED AT [address],[place] [address] CKD-EPI 2020 equation that does Reported eGFR is based on the RHEUMATOID FACTOR Reviewed date:09/26/2024 03:53:09 PM Interpretation: Performing Lab: Notes/Report: RHEUMATOID FACTOR <10 <20 IU/mL PERFORMED AT [facility] [address],[place] [address] QUANTIFERON-TB GOLD PLUS, B Reviewed date:09/27/2024 07:02:14 PM Interpretation: Performing Lab: Notes/Report: QUANTIFERON-TB GOLD PLUS RESULT Negative Negative a second test should be considered in accordance In patients at high risk for M.tuberculosis infection, for Diagnosis of Tuberculosis in Adults and Children The reference range for the 'TB1 Ag minus Nil Result' with the 2017 ATS/IDSA/CDC Clinical Practice Guidelines 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 tuberculosis antigens was detected. Latent infection with M. tuberculosis is unlikely. A single negative result 2017;64(2):111-115). (Ld HAYWARD et. al. Clin. Infect. Dis. level <0.35 IU/mL. and 'TB2 Ag minus Nil Result' is an Interferon-gamma does not exclude infection with M. tuberculosis. TB1 AG MINUS NIL RESULT 0.06 TB2 AG MINUS NIL RESULT 0.02 MITOGEN MINUS NIL 9.28 NIL RESULT 0.02 Assembly Machine Feeder: Ricardo Arroyo Ph.D.; CLIA# [id number] Test Performed by: [address] [address] [place] by IFA Reviewed date:10/09/2024 07:50:00 PM Interpretation: Performing Lab: Notes/Report: [facility] , Antinuclear Antibodies, IFA Negative . Assembly Machine Feeder: Hernandez Bhat PhD, Phone: [phone] [employer], the official website for the ICAP nomenclature: AC-0 Positive >1:80 Negative <1:80 Performed at: - [facility] [place] Borderline [address] [place], [place] [id number] For more information about Hep-2 cell patterns use Patterns (ICAP). International Consensus on Antinuclear Antibody ([place]) Performing Lab: see note LC - [facility] LB MR cervical spine wo con Reviewed date:10/04/2024 09:49:29 PM Interpretation: Performing Lab: Notes/Report: Source Facility: [facility] [place] [id number] Magnetic Resonance Report Signed Patient: QIAN JUAREZ MR#: [id number] : 1950 Acct:[id number] Age/Sex: 74 / F ADM Date: 10/04/24 Loc: MRI Attending Dr: Zelda Whitaker M.D. Ordering Physician: Zelda Whitaker M.D. Date of Service: 10/04/24 Procedure(s): MR cervical spine wo con Accession Number(s): [id number] cc: Zelda Whitaker M.D. [place] [address] Patient Name: QIAN JUAREZ MRN: [id number] date: 1950 Sex: F Assigned Patient Location: MRI Current Patient Location: MRI Accession/Order Number: [id number] Exam Date: 10/04/2024 19:14 Report Date: 10/04/2024 19:20 At the request of: ZELDA WHITAKER MD Procedure: MR cervical spine wo con EXAMINATION: MRI OF THE CERVICAL SPINE WITHOUT CONTRAST CLINICAL DATA: Cervical Radiculopathy TECHNIQUE: Multiecho imaging was performed in the sagittal and axial plane without contrast FINDINGS: FINDINGS: The craniocervical junction is maintained. Cervical vertebral heights, alignment, bone marrow signal is unremarkable. Cervical cord demonstrates normal signal morphology. Intervertebral space narrowing, mild at L4-5 prevertebral and paraspinal soft tissues are unremarkable. FINDINGS: C2-C3: Mild facet arthropathy. No significant disc disease, central canal or neural from narrowing identified. C3-C4: Mild Central disc osteophyte complex. Canal neural foramen are patent. C4-C5: Right paracentral disc osteophyte complex and bilateral uncovertebral spurring noted. This causes mild indentation right hemicord. Mild canal narrowing greatest right. There is moderate to severe right and left neural foraminal narrowing. C5-6: Broad-based disc osteophyte complex with mild uncovertebral spurring. Mild canal and mild neural foraminal narrowing. C6-C7: Broad-based disc osteophyte complex with bilateral uncovertebral spurring. Moderate neural foraminal narrowing. Mild central canal stenosis. C7-T1: Moderate right and minimal left facet arthropathy. No significant disease, central canal or neural from narrowing identified. There is degenerative facet arthropathy involving the upper thoracic spine as partially visualized which appears to cause dorsal canal encroachment. MR/MR cervical spine wo con IMPRESSION: Overall mild multilevel degenerative changes are spine greatest on the right C4-C5. Additional findings as noted within the body report. Impression dictated by: Mayo Dunham M.D. 10/04/2024 7:20 PM Dictation Location: [place] [address] Electronically authenticated by: [id number] Y Date: 10/04/2024 19:20 Dictated By: Mayo Dunham M.D. Signed By: 10/04/241922 DD/ 19 TD/TT: Analytical Lead: wrist LT wo con Reviewed date:10/04/2024 09:49:29 PM Interpretation: Performing Lab: Notes/Report: Source Facility: [place] [address] Magnetic Resonance Report Signed Patient: QIAN JUAREZ MR#: [id number] : 1950 Acct:[id number] Age/Sex: 74 / F ADM Date: 10/04/24 Loc: MRI Attending Dr: Zelda Whitaker M.D. Ordering Physician: Zelda Whitaker M.D. Date of Service: 10/04/24 Procedure(s): MR wrist LT wo con Accession Number(s): [id number] cc: Zelda Whitaker M.D. [place] [address] Patient Name: QIAN JUAREZ MRN: [id number] date: 1950 Sex: F Assigned Patient Location: MRI Current Patient Location: MRI Accession/Order Number: [id number] Exam Date: 10/04/2024 16:00 Report Date: 10/04/2024 16:12 At the request of: ZELDA WHITAKER MD Procedure: MR wrist LT wo con MR wrist LT wo con 10/04/2024 2:48 PM SIGNS AND SYMPTOMS: Acute left wrist pain after fall with bruising and swelling PROTOCOL: Multiplanar multisequence MR images of the left wrist without IV contrast COMPARISON: None. FINDINGS: Alignment: Normal Fluid: Carpus effusion: None. Distal radioulnar joint effusion: There is an effusion along the distal radioulnar joint. Intrinsic ligaments: Scapholunate: Intact. Lunotriquetral: Intact. Ulnar side: Triangular fibrocartilage: Grossly intact. Lunate facet: Subcortical cystic change and edema is noted. Hamate-lunate: There is subcortical cystic change and edema along the joint space.. Extensor compartment: I: Intact. II: Intact. III: Intact. IV: Intact. V: Intact. : Intact. Flexor compartment: Carpal tunnel: Median nerve: Normal. Flexor retinaculum: Intact. Flexor tendons: Intact. Guyon canal: Normal. Articular: Thumb carpometacarpal joint: Mild degenerative changes are present.. Scaphotrapeziotrapezoidal joint: There is subcortical cystic change and edema. Pisiform-triquetral joint: Normal. Bones (other than subarticular marrow): Significant marrow edema is noted throughout the lunate, L, hamate, and to a lesser extent the scaphoid. Muscles: Normal. Vessels: Normal. Subcutaneous soft tissues: Mild diffuse nonspecific subcutaneous soft tissue swelling is noted. MR/MR wrist LT wo con IMPRESSION: No definite evidence of acute displaced fracture or dislocation. Extensive marrow edema is noted in the carpal bones, greatest in the lunate. There is ongoing clinical concern for acute displaced fracture, follow-up with CT may be helpful. Mild diffuse nonspecific soft tissue swelling is noted. Impression dictated by: Chandrakant Oneill M.D. 10/04/2024 4:12 PM Dictation Location: [place] [address] Electronically authenticated by: [id number] Y Date: 10/04/2024 16:12 Dictated By: Chandrakant Oneill M.D. Signed By: 10/04/24 1618 DD/ 1612 TD/TT: Analytical Lead: CREATININE Reviewed date:10/31/2024 05:56:27 PM Interpretation: Performing Lab: Notes/Report: [facility] , Creatinine 1.12 0.55-1.02 mg/dL Estimated GFR ( Luisana 57 >=60 mL/min/1.73m 2 Estimated GFR (Non- Corin 47 >=60 mL/min/1.73m 2 Performing Lab: see note ML - [facility] LB CT chest wo con Reviewed date:10/31/2024 05:56:27 PM Interpretation: Performing Lab: Notes/Report: Source Facility: [facility]-[address] [place] [address] [place] [address] CT Scan Report Signed Patient: QIAN JUAREZ MR#: [id number] : 1950 Acct:[id number] Age/Sex: 74 / F ADM Date: 10/31/24 Loc: LAB Attending Dr: Zelda Whitaker M.D. Ordering Physician: Zelda Whitaker M.D. Date of Service: 10/31/24 Procedure(s): CT chest wo con Accession Number(s): [id number] cc: Zelda Whitaker M.D. [address] [place] [address] Patient Name: QIAN JUAREZ MRN: [id number] date: 1950 Sex: F Assigned Patient Location: LAB Current Patient Location: LAB Accession/Order Number: [id number] Exam Date: 10/31/2024 13:35 Report Date: 10/31/2024 14:24 At the request of: ZELDA WHITAKER MD Procedure: CT chest wo con CT CHEST WITHOUT IV CONTRAST: CLINICAL HISTORY: Dyspnea, Fever Of Unknown Origin COMPARISON: CT chest 09/09/2024 TECHNIQUE: Spiral images were obtained through the chest without IV contrast. This CT exam was performed using one or more following dose reduction techniques: Automated exposure control, adjustment of the mA and/or kV according to patient size, or use of iterative reconstruction technique. FINDINGS: Mediastinum:Thoracic aorta appears normal in caliber. Pulmonary trunk appears nondilated. No pleural effusion or lymphadenopathy. The esophagus is grossly unremarkable. Lungs:No consolidation pneumothorax or pleural effusion. Mild lung scarring. Stable 3 mm nodule involving the lingula series 4 image 52. Abd:No acute findings. Soft tissues/Bones: No acute findings. Osseous structures demonstrate degenerative change. CT/CT chest wo con IMPRESSION: No acute process. Stable 3 mm nodule involving the lingula. Impression dictated by: Ravi Valencia Jr., D.O. 10/31/2024 2:24 PM Dictation Location: [place] [address] Electronically authenticated by: [id number] Y Date: 10/31/2024 14:24 Dictated By: Ravi Valencia M.D. Signed By: 10/31/24 1427 DD/ 1424 TD/TT: Analytical Lead: CT abdomen pelvis w con Reviewed date:10/31/2024 05:56:27 PM Interpretation: Performing Lab: Notes/Report: Source Facility: [place] [address] CT Scan Report Signed Patient: QIAN JUAREZ MR#: [id number] : 1950 Acct:[id number] Age/Sex: 74 / F ADM Date: 10/31/24 Loc: LAB Attending Dr: Zelda Whitaker M.D. Ordering Physician: Zelda Whitaker M.D. Date of Service: 10/31/24 Procedure(s): CT abdomen pelvis w con Accession Number(s): [id number] cc: Zelda Whiatker M.D. [place] [address] Patient Name: QIAN JUAREZ MRN: [facility]:[id number] date: 1950 Sex: F Assigned Patient Location: LAB Current Patient Location: LAB Accession/Order Number: [id number] Exam Date: 10/31/2024 14:55 Report Date: 10/31/2024 15:19 At the request of: ZELDA WHITAKER MD Procedure: CT abdomen pelvis w con CT ABDOMEN AND PELVIS WITH INTRAVENOUS CONTRAST: CLINICAL HISTORY: Abdominal Pain , Fever Of Unknown Origin COMPARISON: None TECHNIQUE: Spiral images were obtained through the abdomen and pelvis following the administration of intravenous contrast. This CT exam was performed using one or more following dose reduction techniques: Automated exposure control, adjustment of the mA and/or kV according to patient size, or use of iterative reconstruction technique. FINDINGS: Lung Bases: [Mild lung scarring.] Organs:Gallbladder has been removed. Liver portal vein pancreas spleen and adrenal glands all appear unremarkable. No enhancing renal mass or hydronephrosis. Small cyst left kidney. Aorta appears normal in caliber.[ GI: Stomach is grossly unremarkable. Duodenal diverticulum. Small bowel appears nondilated. Appendix is normal. No acute colonic abnormality. Pelvis:[Urinary bladder is grossly unremarkable. Uterus has been removed. No adnexal mass.] Peritoneum/Retroperitoneum:No free air free fluid or lymphadenopathy.[ Abd wall/Bones:Abdominal wall demonstrate no acute findings. Osseous structures demonstrate degenerative change. Scoliosis.[ CT/CT abdomen pelvis w con IMPRESSION: No acute findings. Impression dictated by: Ravi Valencia Jr., D.O. 10/31/2024 3:19 PM Dictation Location: [place] [address] Electronically authenticated by: [id number] Y Date: 10/31/2024 15:19 Dictated By: Ravi Valencia M.D. Signed By: 10/31/24 1522 DD/ 1519 TD/TT: Analytical Lead: CBC AUTO DIFF Reviewed date:09/09/2024 05:30:04 PM Interpretation: Performing Lab: Notes/Report: [facility] , White Blood Count 12.1 4.0-11.0 10 3/uL Red Blood Count 4.31 4.20-5.40 10 6/uL Hemoglobin 11.4 12.0-16.0 g/dL Hematocrit 35.7 36.0-48.0 % Mean Corpuscular Volume 82.8 81.0-99.0 fL Mean Corpuscular Hemoglobin 26.5 26.7-34.0 pg Mean Corpuscular HGB Conc 31.9 29.9-35.2 g/dL Red Cell Distribution Width 15.3 11.0-15.0 % Platelet Count 371 150-450 10 3/uL Mean Platelet Volume 9.4 9.5-13.5 fL Neutrophils Percent Auto 83.6 43.0-75.0 % Lymphocytes Percent Auto 6.8 20.5-60.0 % Monocytes Percent Auto 8.4 1.7-12.0 % Eosinophils Percent Auto 0.1 0.9-7.0 % Basophils Percent Auto 0.2 0.2-2.0 % Immature Granulocytes Pct Auto 0.9 0.0-0.5 % Neutrophils Absolute Auto 10.1 1.4-6.5 10 3/uL Lymphocytes Absolute Auto 0.8 1.2-3.8 10 3/uL Monocytes Absolute Auto 1.0 0.3-0.8 10 3/uL Eosinophils Absolute Auto 0.0 0.0-0.7 10 3/uL Basophils Absolute Auto 0.0 0.0-0.1 10 3/uL Immature Granulocytes Abs Auto 0.11 0.00-0.03 10 3/uL Performing Lab: see note ML - [facility] LB LIPID PANEL Reviewed date:02/27/2024 08:23:20 PM Interpretation: Performing Lab:[facility] [address] [place] [address] AVE[address], [place]. [address] PH:[phone] Notes/Report: CHOLESTEROL 225 150-200 mg/dL TRIGLYCERIDE 263 27-150 mg/dL HDL CHOLESTEROL 46 >39 mg/dL HDL > or = 40mg/dL- Desirable HDL >60 mg/dL - Negative Risk HDL <40 mg/dL - High Risk - VERY LOW LIPOPROTEIN 53 0-30 mg/dL LDL (CALC) 126 <130 mg/dL LDL <100 mg/dL - Desirable LDL >160 mg/dL - High Risk - CHOLESTEROL:HDL 4.9 1.0-5.[address]MED [address], [place] [address] THYROID PROFILE Reviewed date:02/27/2024 08:23:20 PM Interpretation: Performing Lab:[facility] [address], [place]. [address] PH:[phone] Notes/Report: TSH 2.36 0.49-4.67 uIU/mL FREE T4 0.90 0.61-1.60 ng/dL PERFORMED AT [address] [place] [address] HGB A1C (GLYCO-HGB) Reviewed date:02/27/2024 08:23:20 PM Interpretation: Performing Lab:[facility]), [address] [place] [address]., [address] [address] PH:[phone] Notes/Report: HEMOGLOBIN A1C 6.1 4.4-5.6 % ADA Guidelines Diabetes : > 6.4 % Prediabetes : 5.7 % to 6.4 % affected. Result HgbA1c Use with caution in patients with abnormal hemoglobin variants as the half-life of red blood cells and in vivo glycation rates are Normal : less than 5.7 % NOTE AVERAGE GLUCOSE 128 PERFORMED AT [address] [address] IRON Reviewed date:02/27/2024 08:23:20 PM Interpretation: Performing Lab:[facility]), [address] [place] [address], [address] [address] PH:[phone] Notes/Report: IRON 28 50-170 ug/dL PERFORMED AT [address] [address] FREE T3 Reviewed date:02/27/2024 08:23:20 PM Interpretation: Performing Lab:[facility]), [address] [place] [address], [address] [address] PH:[phone] Notes/Report: FREE T3 2.99 2.50-3.90 pg/mL PERFORMED AT [address] [address] COMPREHENSIVE METABOLIC PANE L Reviewed date:02/27/2024 08:23:20 PM Interpretation: Performing Lab:[facility]), [address] [place] [address]., [address] [address] PH:[phone] Notes/Report: SODIUM 144 134-146 mmol/L POTASSIUM 3.5 3.5-5.0 mmol/L CHLORIDE 100 98-109 mmol/L CARBON DIOXIDE 32 22-32 mmol/L ANION GAP 12 5-15 mmol/L BLOOD UREA NITROGEN 18 5-27 mg/dL CREATININE 1.00 0.40-1.00 mg/dL METHOD TRACE ABLE TO IDID STANDARD GLUCOSE 128 65-99 mg/dL CALCIUM 9.3 8.5-10.5 mg/dL TOTAL PROTEIN 7.5 6.0-8.0 g/dL ALBUMIN 4.1 3.2-5.3 g/dL ALKALINE PHOSPHATASE 100 39-130 U/L AST 17 0-41 U/L ALT 11 0-31 U/L BILIRUBIN,TOTAL 0.3 0.3-1.2 mg/dL eGFR (CKD-EPI) NON-RACE DEPENDENT 58 >59 ml/min/1.73sq.m CKD-EPI 2020 equation that does not use a race coefficient. PERFORMED AT [address], [place] [address] Reported eGFR is based on the CBC AND AUTO DIFF * Reviewed date:02/27/2024 08:23:20 PM Interpretation: Performing Lab:[facility]), [address] [place], [place] [address]E., [address], [place]. [address] PH:[phone] Notes/Report: WBC COUNT 10.0 4.0-11.0 X10E9/L RBC COUNT 4.67 3.80-5.20 X10E12/L HEMOGLOBIN 12.8 11.7-15.5 g/dL HEMATOCRIT 39.6 35-47 % MCV 85 80-100 fL MCH 27.5 27-34 pg MCHC 32.5 32-36 g/dL RDW 16.2 11.5-15.0 % PLATELET COUNT 296 150-450 X10E9/L MPV 8.7 7-12 fL % NEUTROPHILS 67.6 % LYMPHOCYTES 22.2 % MONOCYTES 5.7 % EOSINOPHILS 3.4 % BASOPHILS 1.1 ABSOLUTE NEUTROPHIL 6.8 1.5-6.6 X10E9/L ABSOLUTE LYMPHOCYTE 2.2 1.0-3.5 X10E9/L ABSOLUTE MONOCYTE 0.6 0-0.9 X10E9/L ABSOLUTE EOSINOPHIL 0.3 0.0-0.4 X10E9/L ABSOLUTE BASOPHIL 0.1 0.0-0.2 X10E9/L PERFORM ED AT [facility] [address],[place] [address] Reason For Referral Diagnosis 1 Frozen shoulder (M75 .00) Referral Organization [facility] Referring Provider First Name Grzegorz Referring Provider Last Name Julianne Referring Provider [facility] Referred Provider Harjeet Gannon Referred Provider Specialty Orthopedic S urgery Referral Priority Routine Reason possible fracture of the wrist- MRI included- please scheduled ZENAIDA Diagnosis 1 Abnormal MRI (R93.89 ) Referral Organization [facility] Referring Provider First Name Grzegorz Referring Provider Last Name Julianne Referring Provider [facility] Referred Provider Doug Marina Referred Provider Specialty Orthopedic S urgery Referral Priority Routine Diagnosis 1 Wrist pain, acute, l eft (M25.532) Referral Organization [facility] Referring Provider First Name Grzegorz Referring Provider Last Name Julianne Referring Provider [facility] Referred Provider Specialty Occupational Therapy Referral Priority Routine Medications Medication SIG (Take, Route, Frequency, Duration) Notes Start Date End Date Status predniSONE 20 MG 3 tablets Orally Onc e a day; Duration: 5 days 11/07/2024 Active metFORMIN HCl 500 MG TAKE 1 TABLET BY [facility] ONCE DAILY WITH MEALS; Duration: 90 Active Blood Glucose Monitor System w/Device use device E11.9 daily to monitor blood glucose level 02/25/2023 Active Ondansetron 4 MG 1 tablet on the tong ue and allow to dissolve Orally qid 10/05/2024 Active ALPRAZolam 0.5 MG Take 1 tablet by [facility] twice daily; Duration: 30 08/19/2024 Active Omeprazole 40 MG take 1 capsule by [facility] 30 MINUTES BEFORE MORNING MEAL; Duration: 90 days Active Cyproheptadine HCl 4 MG TAKE 1 TABLET BY MOUTH 4 TIMES DAILY NEEDED; Duration: 30 Active Lasix 40 MG Take [facility] by [facility] once daily; Duration: 30 Active Triamterene-HCTZ 75-50 MG Take 1 tablet by mouth once daily; Duration: 30 Active Lancets 30G - Use once daily to te st blood sugar E11.9 02/25/2023 Active Tretinoin 0.1 % 1 application in the evening to face Externally Once a day 02/07/2023 Active Levothyroxine Sodium 50 MCG take 1 table t by mouth once daily; Duration: 90 Active Latisse 0.03 % 1 application along upper eyelid margin at base of eyelashes Externally Once a day 02/20/2024 Active Vitamin D (Cholecalciferol) 50 MCG (1999 UT) 1 capsule Orally Once a day OTC 02/28/2024 Active Temazepam 30 MG 1 capsule at bedtime as needed Orally Once a day; Duration: 30 02/10/2023 Active Clotrimazole 1 % 1 application [employer] ally Twice a day; Duration: 14 days 11/14/2023 Active Potassium Chloride ER 10 MEQ 2 tablets w ith food Orally three times daily; Duration: 30 days Active HYDROcodone-Acetaminophen 5-325 MG 1-2 tablet as needed Orally every 6 hrs; Duration: 7 days M51.36 10/23/2024 Active tiZANidine HCl 4 MG 3 tablet at bedtime as needed Orally Once a day; Duration: 30 days 02/20/2024 Active Ferrous Sulfate 325 (65 Fe) MG 1 tablet Orally once daily OTC 02/28/2024 Active Test Strips - Use one strip daily E11.9 Once daily; Duration: 90 days Active Immunizations Vaccine Route Administration Date Status Comme nts Flu, Fluad (18941) 65 yrs+, single-dose syringe (8880-9903) IM Intramuscular 02/07/2023 Administered Social History Tobacco Use: Social History Observation Description Date Details (start date - stop date) Never Smoker NA - NA Tobacco Use/Smoking Question Answer Notes Patient is a nonsmoker Alcohol Screen (Audit-C) Question Answer Notes Did you have a drink containing alcohol in the p ast year? No Points 0 Interpretation Negative AUDIT-C (Standard) Question Answer Notes Did you have a drink containing alcohol in the p ast year? No Points 0 Interpretation Negative Problems Problem Type SNOMED Code ICD Code Onset Dates Problem Status W/U Status Risk Notes Problem Gastro-esophageal reflux disease without esophagitis (215758177) Gastro-esophageal reflux disease without esophagitis (K21.9) Active confirmed Problem Abdominal pain (86786963) Abdominal pain (R10.9) Active confirmed Problem Gastroesophageal reflux disease (792753961) GERD (gastroesophageal reflux disease) (K21.9) Active confirmed Problem Cervical radiculopathy (50652234) Cervical radiculopathy (M54.12) Active confirmed Problem Hypothyroidism (03197171) Hypothyroidism (E03.9) Active confirmed Problem Hypertension (58468932) HTN (hypertension) (I10) Active confirmed Problem Anxiety (78855074) Anxiety (F41.9) Active confi rmed Problem Essential hypertension (87794709) Essential hypertension (I10) Active confirmed Problem DM - Diabetes mellitus (24448365) DM (diabetes mellitus) (E11.9) Active confirmed Problem Dyspnea (938513716) Dyspnea (R06.00) Active confirmed Problem Degeneration of lumbar intervertebral disc (69731220) Lumbar degenerative disc disease (M51.36) Active confirmed Problem Localized, primary osteoarthritis of the pelvic region and thigh (810287528) Osteoarthritis of right hip (M16.11) Active confirmed Problem Solitary nodule of lung (942299469) Lung nodule (R91.1) Active confirmed Problem Acquired hypothyroidism (830124032) Acquired hypothyroidism (E03.9) Active confirmed Problem Fever (313425588) FUO (fever of unknown origin) (R50.9) Active confirmed Problem Annular tear of lumbar disc (396562688) Annular tear of lumbar disc (M51.36) Active confirmed Problem Gastroesophageal reflux disease (191598772) Gastroesophageal reflux disease (K21.9) Active confirmed Problem Degeneration of lumbosacral intervertebral disc (43120618) Degenerative disc disease at L5-S1 level (M51.36) Active confirmed Problem Pain in wrist (32024967) Wrist pain, acute, left (M25.532) Active confirmed Problem Right bundle branch block (31950513) Right bundle branch block (RBBB) on electrocardiogram (ECG) (I45.10) Active confirmed Problem MRI Scan Abnormal (545629158) Abnormal MRI (R93.89) Active confirmed Problem Diabetes mellitus (06541476) Diabetes mellitus (E11.9) Active confirmed Vital Signs Temperature 99.0 degrees Fahrenheit 10/24/2024 Blood pressure diastolic 80 mm Hg 11/07/2024 Height 59 in 11/07/2024 Blood pressure systolic 118 mm Hg 11/07/2024 Weight 137.8 lbs 11/07/2024 BMI 27.83 kg/m2 11/07/2024 Encounters Encounter Location Date Provider Diagnosis [facility] [address] [place] [address] 01/10/2024 Grzegorz Whitaker [facility] [address] [place] [address] 01/12/2024 Grzegorz Whitaker [facility] [address] [place] [address] 02/10/2024 Grzegorz Julianne [facility] [address] [place] [address] 02/10/2024 Grzegorz Whitaker [facility] [address] [place] [address] 02/27/2024 Grzegorz Julianne [facility] [address] [place] [address] 03/16/2024 Grzegorz clyde [facility] [address] [place] [address] 04/16/2024 Grzegorz Whitaker [facility] [address] [place] [address] 05/24/2024 Grzegorz Whitaker [facility] [address] [place] [address] 07/02/2024 Grzegorz Whitaker [facility] [address] [place] [address] 07/13/2024 Grzegorz Hoy Frozen shoulder M75. 00 [facility] [address] [place] [address] 09/09/2024 Grzegorz Whitaker [facility] [address] [place] [address] 09/20/2024 Grzegorz Julianne [facility] [address] [place] [address] 09/26/2024 Grzegorz Nasiry [facility] [address] [place] [address] 09/27/2024 Grzegorz Hoy Joint pain M25.50 [facility] [address] [place] [address] 10/04/2024 Grzegorz Hoy Cervical radiculopat hy M54.12 and Abnormal MRI R93.89 [facility] [address] [place] [facility] [place] [address] 10/04/2024 Grzegorz Hoy [facility] [address] [place] [facility] [place] [address] 10/23/2024 Grzegorz Hoy Cervical radiculopat hy M54.12 [facility] [address] [place] [facility] [place] [address] 10/23/2024 Grzegorz Hoy [facility] [address] [place] [facility] [place] [address] 10/31/2024 Grzegorz Hoy Shoulder pain, right M25.511 [facility] [address] [place] [facility] [place] [address] 11/01/2024 Grzegorz Hoy Wrist pain, acute, l eft M25.532 [place] [address] [place] [facility] [place] [address] 09/14/2024 Grzegorz Hoy HTN (hypertension) I [address] [place] [address] [place] [facility] [place] [address] 02/20/2024 Grzegorz Hoy Gastro-esophageal re flux disease without esophagitis K21.9 ; HTN (hypertension) I10 ; DM (diabetes mellitus) E11.9 and Acquired hypothyroidism E03.9 [place] [address] [place] [facility] [place] [address] 06/22/2024 Grzegorz Hoy Acute bronchitis, unspecified organism J20.9 [place] [address] [place] [facility] [place] [address] 09/07/2024 Grzegorz Hoy Frequency R35.0 and Acute UTI N39.0 [facility] [address] [place] [facility] [place] [address] 09/24/2024 Grzegorz Hoy DM (diabetes mellitu s) E11.9 ; HTN (hypertension) I10 ; Cervical radiculopathy M54.12 and Wrist pain, acute, left M25.532 [facility] [address] [place] [facility] [place] [address] 10/24/2024 Grzegorz Hoy Abdominal pain R10.9 ; Dyspnea R06.00 ; FUO (fever of unknown origin) R50.9 and Wrist pain, acute, right M25.531 [facility] [address] [place] [address] 11/07/2024 Grzegorz Hoy Wrist pain, acute, l eft M25.532 Assessments Encounter Date Diagnosis (ICD Code) Assessment Notes Treatment Notes Treatment Clinical Notes Section Notes 02/20/2024 Gastro-esophageal reflux disease without esophagitis (ICD-10 - K21.9) 02/20/2024 HTN (hypertension) (ICD-10 - I10) 06/22/2024 Acute bronchitis, unspecified organism (ICD-10 - J20.9) Rest and drink more liquids, especially water. You may use a humidifier or vaporizer to help keep the drainage moist. Gvlj-kch-rlgergo Nasal Saline may help the stuffy and runny nose. Use Ibuprofen and or Tylenol as needed for fever, chills, body aches or pain. Children 5 years old should not be given sgnu-ceb-eqlbkzx cough and cold medications such as guaifenesin and dextromethorphan. If you're over age 5, you may try zdtx-frz-ausxjxx cold medications such as guaifenesin and dextromethorphan, or multi-symptom cold reliever such as Dayquil to help reduce the symptoms. Antibiotics have been prescribed. You should take these until completed and follow the directions. Antibiotics can sometimes cause upset stomach, and in rare cases, serious allergic reactions or serious gastrointestinal problems. If you start having severe abdominal pain, severe vomiting, or bloody diarrhea, you should be reevaluated by your physician or urgent care immediately. Follow up with your Primary Care Provider or return to clinic if symptoms do not improve within 3-5 days. If you develop severe symptoms such as shortness of breath, repeated vomiting, coughing up blood, or chest pain you should go to the emergency room or call 911 09/07/2024 Frequency (ICD-10 - R35.0) 09/07/2024 Acute UTI (ICD-10 - N39.0) 09/14/2024 HTN (hypertension) (ICD-10 - I10) sending to ER 09/24/2024 DM (diabetes mellitus) (ICD-10 - E11.9) 09/24/2024 HTN (hypertension) (ICD-10 - I10) 10/24/2024 Abdominal pain (ICD-10 - R10.9) 10/24/2024 Dyspnea (ICD-10 - R06.00) 11/07/2024 Wrist pain, acute, left (ICD-10 - M25.532) 07/13/2024 Frozen shoulder (ICD-10 - M75.00) 09/27/2024 Joint pain (ICD-10 - M25.50) 10/04/2024 Cervical radiculopathy (ICD-10 - M54.12) 10/23/2024 Cervical radiculopathy (ICD-10 - M54.12) 10/31/2024 Shoulder pain, right (ICD-10 - M25.511) 11/01/2024 Wrist pain, acute, left (ICD-10 - M25.532) 10/04/2024 Abnormal MRI (ICD-10 - R93.89) 10/24/2024 FUO (fever of unknown origin) (ICD-10 - R50.9) 09/24/2024 Cervical radiculopathy (ICD-10 - M54.12) 02/20/2024 DM (diabetes mellitus) (ICD-10 - E11.9) 02/20/2024 Acquired hypothyroidism (ICD-10 - E03.9) 09/24/2024 Wrist pain, acute, left (ICD-10 - M25.532) 10/24/2024 Wrist pain, acute, right (ICD-10 - M25.531) 09/07/2024 Other Recommended to rest and use a heating pad on the area. Take NSAIDs for pain as needed Plan Of Treatment Pending Test Test Name Order Date MRI : C spine 09/24/2024 CMP (COMPLETE METABOLIC PANEL) 4 CMP (COMPLETE METABOLIC PANEL) 3 HEMOGLOBIN A1C (GLYCO) 02/20/2024 HEMOGLOBIN A1C (GLYCO) 10/24/2024 IRON, TOTAL 10/24/2024 IRON, TOTAL 02/20/2024 LIPID PANEL (CHOL/TRIG/HDL/LDL) 02/20/20 24 LIPID PANEL (CHOL/TRIG/HDL/LDL) 10/25/19 25 CBC WITH DIFF 02/20/2024 VITAMIN D, 25 LEVEL (TOTAL) 02/20/2024 VITAMIN D, 25 LEVEL (TOTAL) 10/24/2024 MRI Thoracic Spine w/o contrast 07/05/19 T3 FREE, T4 FREE and TSH 02/08/2023 RHEUMATOID PANEL 10/24/2024 RHEUMATOID PANEL 09/24/2024 Insulin Level 10/24/2024 MRI Spine Lumbar w/o Contrast 07/04/2018 STOOL OCCULT BLOOD 10/24/2024 STOOL OCCULT BLOOD 02/20/2024 Upper GI endoscopy 02/09/2023 AMYLASE 10/24/2024 CA 125 10/24/2024 CA 19-9 10/24/2024 CBC AUTO DIFF 09/24/2024 CBC AUTO DIFF 02/08/2023 CEA 10/24/2024 GLYCOHEMOGLOBIN A1C 02/08/2023 LIPASE 10/24/2024 LIPID PROFILE 02/08/2023 PROF 14(COMP METB) 09/24/2024 QUANTIFERON TB GOLD PLUS 09/24/2024 SED RATE WESTERGREN 09/24/2024 SED RATE WESTERGREN 10/24/2024 VIT B12 AND FOLATE 10/24/2024 CT ABD and PELV W CON 10/24/2024 CT CHEST WO CON 10/24/2024 MRI SHOULDER LT WO CON 10/31/2024 MRI WRIST LT WO CON 09/24/2024 THYROID PANEL (T4/TSH/FREE T3) 4 THYROID PANEL (T4/TSH/FREE T3) 5 MM screening mammo BI 02/20/2024 [place] 09/27/2024 CMP (COMP MET KENNY) w/eGFR CKD-EPI 2024 CBC WITH DIFF 10/24/2024 Insurance Providers Payer Name Payer Address Payer Phone Subscriber Number Group Number Insured Name Patient Relationship to Insured Coverage Start Date Coverage End Date [place] [address] [place] [address] [phone] [id number] Qian Juarez Self - patient is the insured 3 [facility] [address] [place] [address] [id number] Qian Juarez Self - patient is the insured 6 Medications Administered Medication Instructions Date of Administration Dosage Notes Kenalog-40 02/07/2023 80 mg 80 Medical (General) History Surgical History Surgery Date(Month/Year) Lumbar I&D by Dr Torre 12/08/20 L2-L5 Lumbar Decompression by Dr Desmond longoria 11/06/20 Hospitalization History Reason Date(Month/Year) see above
--- OUTSIDE RECORDS SUMMARY | 2024-11-29 15:44 | XMS_ITS | Encounter Summary ---
Author Organization [employer] [facility] [employer] Address [id number] [address] [place] [address] Care Team Providers Care Certified Orthotist Name Role Phone Prem Whitaker MD Primary Care Provider [phone] Encounter Details Date Type Department Care Team ([facility] st Contact Info) Description 01/08[facility]2021 [facility] [address] [facility] [address] [place] [address] Jayleen Enrique, SENIOR DATA DEVELOPER-DEDICATED DRIVER [address] [facility] [address] [place] [address] Social History Tobacco Use Types Packs/Day Years [...] tolerating new med well, no complications. Oralia [facility] nurse from [facility] was advised of labs to pull before line is pulled. Patient will also go to lab Tuesday01/16/21 and get redraw. documented in this encounter Plan of Treatment Not on file documented as of this encounter Visit Diagnoses Not on filedocumented in this encounter Care Teams Certified Orthotist Relationship Specialty Start Date End Date Prem Whitaker MD PCP - General Family Medicine 07/19/19 documented as of this encounter
--- OUTSIDE RECORDS SUMMARY | 2024-11-29 15:45 | XMS_ITS | Encounter Summary ---
Author Organization [employer] [facility] [employer] Address [facility] [id number] [address] [place] [address] Care Team Providers Care Gear Cutter Name Role Phone Prem Whitaker MD Primary Care Provider [phone] Encounter Details Date Type Department Care Team (Late st Contact Info) Description 12/15/2020 Telephone [facility] [place] [address] [facility] [address] [place] [address] Philly Norris, SHERIFFS-FLOATER OPERATOR [address] [place], [place] [id number] Social History Tobacco Use Types Packs/Day Years [...] - 12/15/2020 4:04 PM EDT Philly- Patient's [facility] Nurse Kimberly called and stated [...] - 12/15/2020 4:04 PM EDT I called [facility] nurse Kimberly and she was advised. She stated she will tell the patient. documented in this encounter Plan of Treatment Not on file documented as of this encounter Visit Diagnoses Not on filedocumented in this encounter Care Teams Gear Cutter Relationship Specialty Start Date End Date Prem Whitaker MD PCP - General Family Medicine 07/19/19 documented as of this encounter
--- OUTSIDE RECORDS SUMMARY | 2024-11-29 15:45 | XMS_ITS | Clinical Summary ---
Author Organization [facility] Address [address] [place] [address] Care Team Providers Care Tax Appraiser Name Role Phone Prem Whitaker MD Primary Care Provider [phone] Allergies Active Allergy Reactions Criticality Noted Date [...] Active tiZANidine (Zanaflex) 4 MG tablet Active Active Problems No known active problems Encounters Date Type Department Care Team Description 10/16/2024 Telephone [facility] [address] [place] [address] Irvin Carr, JONATHON referral to specialist in [place] 10/15/2024 11:00 AM EDT Office Visit [facility] [address] Irvin Carr, MOLD PRESS OPERATOR Primary osteoarthritis of left hand (Primary Dx); [...] 02/23/2019 Influenza Vaccine (#1) 2024 02/23/[address] [facility] [address] MEDICARE [facility] Care Teams Tax Appraiser Relationship Specialty Start Date End Date Prem Whitaker MD [address] [place] [address] PCP - General Family Medicine 10/15/24
--- OUTSIDE RECORDS SUMMARY | 2024-11-29 15:45 | XMS_ITS | Encounter Summary ---
Author Organization [facility] Address [address] [place] [address] Care Team Providers Care Spray Worker Name Role Phone Prem Whitaker MD Primary Care Provider [phone] Prem Whitaker MD Primary Care Provider [phone] Encounter Details Date Type Department Care Team (Late st Contact Info) Description 08/24/2023 External Result Encounter [facility] [address] [facility] [address] [place] [address] Jr. David Valdovinos DO [address] [facility] [address] [place] [address] Social History Tobacco Use Types Packs/Day Years [...] PM EDT THIS EXAM WAS PERFORMED AT [facility] CLINICAL HISTORY: Acute pain both hips [...] - 08/25/2023 THIS EXAM WAS PERFORMED AT [facility] CLINICAL HISTORY: Acute pain both hips [...] AM EDT THIS EXAM WAS PERFORMED AT [facility] Clinical history: Back pain Lumbar spine: [...] - 08/24/2023 THIS EXAM WAS PERFORMED AT [facility] Clinical history: Back pain Lumbar spine: [...] Shade Escobar MD on 08/24/2023 9:33 AM [facility] IMG XR PROCEDURES Final Result documented in this encounter Visit Diagnoses Not on filedocumented in this encounter Care Teams Spray Worker Relationship Specialty Start Date End Date Prem Whitaker MD PCP - General Family Medicine 05/17/23 10/14/24 Prem Whitaker MD [address] [place] [address] PCP - General Family Medicine 10/15/24 documented as of this encounter
--- OUTSIDE RECORDS SUMMARY | 2024-11-29 15:45 | XMS_ITS | Clinical Summary ---
Author Organization [facility] Address [address], [address] [place] [address] Care Team Providers Care Baggage Handling Supervisor Name Role Phone Prem Whitaker MD Primary Care Provider [phone] Allergies Active Allergy Reactions Criticality Noted Date [...] yrs+ (1 - 1-dose 75+ series) 01/25/2023 Flu vaccine (#1) 09/28/2024 02/23/2019 COVID-19 Vaccine (2 - 2024-2 6 season) 2024 04/25/2020 Hepatitis A vaccine Aged Out No longe [...] [employer] MEDICARE SUPP Care Teams Baggage Handling Supervisor Relationship Specialty Start Date End Date Prem Whitaker MD [address] [place] [phone] PCP - General Family Medicine 08/29/20
--- OUTSIDE RECORDS SUMMARY | 2024-11-29 15:45 | XMS_ITS | Clinical Summary ---
Author Organization [facility] Address [address] [place] [address] Care Team Providers Care Is Consultant Name Role Phone Unavailable Primary Care Provider Unavailabl e Encounters Date Type Department Care Team Description 10/17/[address] [place] [address] Jacqueline Bunch MA from Last [...] Description 12/11/2024 3:00 PM EDT Office Visit [address] [place] [address] Doc Mazariegos MD [address] [place] [address] Health Maintenance Due Date Last [...] age to complete this topic Insurance MEDICARE [facility]
--- OUTSIDE RECORDS SUMMARY | 2024-11-29 15:45 | XMS_ITS | Clinical Summary ---
Author Organization [facility] Address [address] [place] [address] Care Team Providers Care Greek Professor Name Role Phone Unavailable Primary Care Provider [...] N ot on file 02/03/2020 Data from: [email or web address] Last address used for calculation Not on [...]
--- OUTSIDE RECORDS SUMMARY | 2024-11-29 15:45 | XMS_ITS | Clinical Summary ---
Author Organization [employer] Address [id number] [address] [place] [address] Care Team Providers Care Campus Ambassador Name Role Phone Prem Whitaker MD Primary Care Provider [phone] Allergies Active Allergy Reactions Criticality Noted Date [...] EDT - 09/18/2024 3:14 PM EDT Emergency [facility] - Emergency [address] [place] [phone] Daniela Coelho MD Musculoskeletal pain (Primary Dx); Wrist sprain, left, initial encounter Discharge Disposition: Home 09/18/2024 Travel 09/14/2024 4:33 PM EDT - 09/14/2024 5:38 PM EDT Emergency [facility] Emergency [address] [place] [phone] Gretchen Sol DO Pain of left upper extremity (Primary Dx) Discharge Disposition: Home 09/14/2024 Travel 09/11/2024 3:29 PM EDT - 09/11/2024 6:37 PM EDT Emergency [facility] - Emergency [address] [facility] [place] [phone] Left-sided thoracic back pain, unspecified chronicity (Primary [...] Screening 01/25/2013 COVID-19 Vaccine (2 - season) 2024 Influenza Vaccine 10/29/2024 02/23/2019 Tobacco Screening 09/18/2025 09/18/2024 Medical Devices Not on file Procedures Procedure Name Priority Date/Time Associated Diagnosis Comments CBC WITH AUTO DIFFERENTIAL Routine 09/25/2024 4:16 PM EDT Type 2 diabetes mellitus without complications (CMS-HCC) RHEUMATOID FACTOR Routine 09/25/2024 4:1 6 PM EDT Type 2 diabetes mellitus without complications ([facility]) QUANTIFERON-TB GOLD PLUS, B Routine 09/25/2024 4:16 PM EDT Type 2 diabetes mellitus without complications ([facility]) ERYTHROCYTE SEDIMENTATION RATE (ESR) Routine 09/25/2024 4:16 PM EDT Type 2 diabetes mellitus without complications ([facility]) COMPREHENSIVE METABOLIC PANEL Routine 09/25/2024 4:16 PM EDT Type 2 diabetes mellitus without complications ([facility]) XR ELBOW LT MIN 3 [...] RESULT Negative Negative 09/27/2024 12:28 PM EDT [facility] s[facility]onr Comment: 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 tuberculosis [...] RESULT 0.06 IU/mL 09/27/2024 12:28 PM EDT [facility] TB2 AG MINUS NIL RESULT 0.02 IU/mL 09/27/2024 12:28 PM EDT [facility] MITOGEN MINUS NIL 9.28 IU/mL 09/27/2024 12:28 PM EDT [facility] NIL RESULT 0.02 IU/mL 09/27/2024 12:28 PM EDT [facility] Comment: Test Performed by: [facility] [place] [address] Senior Radiation Protection Technician: iRcardo Arroyo Ph.D.; CLIA# [id number] Blood Venous blood / Unknown Venipuncture / Unknown 09/25/2024 4:16 PM EDT 09/25/2024 4:16 PM EDT us Prem Whitaker MD LAB BLOOD ORDERABLES Final Resu lt [facility] [address] [place] [address], [place] * (ABNORMAL) Erythrocyte Sedimentation Rate (ESR) (09/25/2024 4:16 PM EDT) Pathologist [facility] ESR, Erythrocyte Sedimentation Rate 49(H) 0 - 30 mm/h 09/25/2024 10:31 PM EDT [facility] Blood Venous blood / Unknown Venipuncture / Unknown 09/25/2024 4:16 PM EDT 09/25/2024 4:16 PM EDT us Prem Whitaker MD LAB BLOOD ORDERABLES Final Resu lt [facility] [address] [place] [address], [place] [phone] * (ABNORMAL) CBC auto differential (09/25/2024 4:16 PM EDT) WBC 9.0 4 - 11 x10E9/L 09/25/2024 10:07 PM EDT [facility] RBC Count 4.13 3.8 - 5.2 X10E12/L 09/25/2024 10:07 PM EDT [facility] Hemoglobin 10.9(L) 11.7 - 15.5 g/dL 09/25/2024 10:07 PM EDT [facility] Hematocrit 33.5(L) 35 - 47 % 09/25/2024 10:07 PM EDT [facility] MCV 81 80 - 100 fL 09/25/2024 10:07 PM EDT [facility] MCH 26.3(L) 27 - 34 pg 09/25/2024 10:07 PM EDT [facility] MCHC 32.5 32 - 36 g/dL 09/25/2024 10:07 PM EDT [facility] RDW 16.9(H) 11.5 - 15 % 09/25/2024 10:07 PM EDT [facility] Platelet Count 547(H) 150 - 450 X10E9/L 09/25/2024 10:07 PM EDT [facility] MPV 7.7 7 - 12 fL 09/25/2024 10:07 PM EDT [facility] Neutrophils % 74.3 % 09/25/2024 10:07 PM EDT [facility] Lymphocytes % 19.2 % 09/25/2024 10:07 PM EDT [facility] Monocytes % 4.7 % 09/25/2024 10:07 PM EDT [facility] Eosinophils % 1.1 % 09/25/2024 10:07 PM EDT [facility] Basophils % 0.7 % 09/25/2024 10:07 PM EDT [facility] Neutrophils Absolute (A) 6.7(H) 1.5 - 6.6 10*3/uL 09/25/2024 10:07 PM EDT [facility] Lymphocytes Absolute 1.7 1.0 - 3.5 10*3/uL 09/25/2024 10:07 PM EDT [facility] Monocytes Absolute 0.4 0.0 - 0.9 10*3/uL 09/25/2024 10:07 PM EDT [facility] Eosinophils Absolute 0.1 0.0 - 0.4 10*3/uL 09/25/2024 10:07 PM EDT [facility] Basophils Absolute 0.1 0.0 - 0.2 10*3/uL 09/25/2024 10:07 PM EDT [facility] Differential Type AUTOMATED DIFFERENTIAL 09/25/2024 10:07 PM EDT [facility] Blood Venous blood / Unknown Venipuncture / Unknown 09/25/2024 4:16 PM EDT 09/25/2024 4:16 PM EDT us Prem Whitaker MD LAB BLOOD ORDERABLES Final Resu lt [facility] [address] [place] [address], [place] [phone] * Rheumatoid factor (09/25/2024 4:16 PM EDT) RHEUMATOID FACTOR <10 <20 IU/mL 09/25/2024 10:45 PM EDT [facility] Blood Venous blood / Unknown Venipuncture / Unknown 09/25/2024 4:16 PM EDT 09/25/2024 4:16 PM EDT us Prem Whitaker MD LAB BLOOD ORDERABLES Final Resu lt [facility] [address] [place] [address], * (ABNORMAL) Comprehensive metabolic panel (09/25/2024 4:16 PM EDT) SODIUM 138 134 - 146 mmol/L 09/25/2024 10:45 PM EDT [facility] POTASSIUM 4.0 3.5 - 5.0 mmol/L 09/25/2024 10:45 PM EDT [facility] CHLORIDE 99 98 - 109 mmol/L 09/25/2024 10:45 PM EDT [facility] CARBON DIOXIDE 24 22 - 32 mmol/L 09/25/2024 10:45 PM EDT [facility] ANION GAP 15 5 - 15 mmol/L 09/25/2024 10:45 PM EDT [facility] BLOOD UREA NITROGEN 17 5 - 27 mg/dL 09/25/2024 10:45 PM EDT [facility] CREATININE 1.23(H) 0.40 - 1.00 mg/dL 09/25/2024 10:45 PM EDT [facility] Comment:METHOD TRACEABLE TO IDMS STANDARD GLUCOSE 98 65 - 99 mg/dL 09/25/2024 10:45 PM EDT [facility] CALCIUM 8.7 8.5 - 10.5 mg/dL 09/25/2024 10:45 PM EDT [facility] TOTAL PROTEIN 6.9 6.0 - 8.0 g/dL 09/25/2024 10:45 PM EDT [facility] ALBUMIN 3.4 3.2 - 5.3 g/dL 09/25/2024 10:45 PM EDT [facility] ALKALINE PHOSPHATASE 178(H) 39 - 130 U/L 09/25/2024 10:45 PM EDT [facility] AST 11 <=41 U/L 09/25/2024 10:45 PM EDT [facility] ALT 9 <=31 U/L 09/25/2024 10:45 PM EDT [facility] BILIRUBIN,TOTAL 0.6 0.3 - 1.2 mg/dL 09/25/2024 10:45 PM EDT [facility] EGFR Non-Race Dependent 46(L) >=60 ml/min/1.7 3sq.m 09/25/2024 10:45 PM EDT [facility] Comment: Reported eGFR is based on the CKD-EPI 2020 equation that does not use a race coefficient. Blood Venous blood / Unknown Venipuncture / Unknown 09/25/2024 4:16 PM EDT 09/25/2024 4:16 PM EDT us Prem Whitaker MD LAB BLOOD ORDERABLES Final Resu lt [facility] [address] [place] [address], [place] [phone] * X-ray elbow left minimum 3 views [...] on 09/18/2024 1:14 PM us Eliz López SKETCH ARTIST-MANAGER CARDIAC IMG DIAGNOSTIC IMAGING ORD ERABLES Final Result [...] on 09/18/2024 12:58 PM us Eliz López SKETCH ARTIST-MANAGER CARDIAC IMG DIAGNOSTIC IMAGING ORD ERABLES Final Result [...] on 09/18/2024 12:59 PM Eliz López APRNPRAKASH [facility] DIAGNOSTIC IMAGING ORD ERABLES Final Result * [...] MD on 09/18/2024 12:59 PM Eliz GALLEGOS [facility] DIAGNOSTIC IMAG[facility] ORD ERABLES Final Result * [...] MD on 09/18/2024 12:56 PM Eliz López SKETCH ARTIST-MANAGER CARDIAC IMG DIAGNOSTIC IMAGING ORD ERABLES Final Result * (ABNORMAL) POCT Nursing Urine Macroscopic UA (09/11/2024 5:46 PM EDT) POC Urine Specific Dendron 1.015 1.010, 1.015, 1.020, 1.025 09/11/2024 5:39 PM EDT [facility] POC Urine Leukocyte Esterase Negative Negative 09/11/2024 5:39 PM EDT [facility] POC Urine Nitrite Positive(A) Negative 09/11/2024 5:39 PM EDT [facility] POC Urine pH 5.5 5.0, 6.0, 6.5, 7.0, 7.5, 8.0, 8.5, 5.5 09/11/2024 5:39 PM EDT [facility] POC Urine Protein 30 mg/dL(A) Negative 09/11/2024 5:39 PM EDT [facility]OC Urine Glucose Negative Negative 09/11/2024 5:39 PM EDT [facility] Urine Ketones Negative Negative 09/11/2024 5:39 PM EDT [facility] POC Urine Urobilinogen 1.0 E.U./dL 09/11/2024 5:39 PM EDT [facility] POC Urine Bilirubin Small(A) Negative 09/11/2024 5:39 PM EDT [facility] POC Urine Blood/HGB Negative Negative 09/11/2024 5:39 PM EDT [facility] Urine 09/11/2024 5:46 PM EDT 09/11/2024 5:39 PM EDT us POINT OF CARE TEST ORDERABLES Fi nal Result Performing Organization Address [facility] Co de Phone Number [address] [place] [address], [place] * Extra Urine [place] (09/11/2024 5:35 PM EDT) Extra Tube Auto Resulted 09/11/2024 7:01 PM EDT [facility] Urine Urine specimen collection, clean catch / Unknown 09/11/2024 5:35 PM EDT 09/11/2024 5:56 PM EDT us Margie Wilson PA-C URINE ORDERABLES Final Resu lt Performing Organization Address City/[facility]/ZIP Co de Phone Number [address] [place] [address], [place] * Extra Urine Culture (09/11/2024 5:35 PM EDT) Extra Tube Auto Resulted 09/11/2024 7:01 PM EDT [facility] Urine Urine specimen collection, clean catch / Unknown 09/11/2024 5:35 PM EDT 09/11/2024 5:56 PM EDT us Margie A Seimet PA-C URINE ORDERABLES Final Resu lt Performing Organization Address City/[facility]/ZIP Co de Phone Number [facility] [address] [place] [address] [place] [address], [place] * Extra Urine (09/11/2024 5:35 PM EDT) Extra Tube Auto Resulted 09/11/2024 7:01 PM EDT [facility] Urine Urine specimen collection, clean catch / Unknown 09/11/2024 5:35 PM EDT 09/11/2024 5:56 PM EDT us Margie Ashley Seimet PA-C URINE ORDERABLES Final Resu lt Performing Organization Address [facility] Co de Phone Number [address] [place] [address], [place] * CT thoracic spine without contrast [...] ult from Last 3 Months Insurance MEDICARE [facility] Care Teams Campus Ambassador Relationship Specialty Start Date End Date Prme Whitaker MD PCP - General Family Medicine 07/19/19
--- OUTSIDE RECORDS SUMMARY | 2024-11-29 15:45 | XMS_ITS | Patient Health Record ---
Author Organization [facility] Address [address] [place] [address] Care Team Providers Care Manager Document Control Name Role Phone Prem Whitaker Primary Care Provider Unavailcasey e Harjeet Gannon Unavailable [phone] Radha Escobar Unavailable Allergies Allergen (clinical drug [...] Referring Provider Speciality Orthopedic Surgery Referred Organization [facility] Outpatient Referred Address [address] [place] [place],[address], Procedure 1 [place] ([address]) General Notes Savannah Duncan 025 01:04:45 PM >PER AVAILITY, PATIENT IS ACTIVE PART A AND PART B, NO AUTH REQUIRED MA NOTIFIED REF FAXED TO [facility] Referral Priority Routine Medications Medication SIG (Take, Route, Fr equency, Duration) Notes Start Date End Date Status Xanax Active potassium chloride A ctive fluticasone Active diclofenac sodium 75 mg 1 tab(s) orally 2 times a day for 30 days 08/06/2024 Active Vitamin D3 Active aspirin Active metFORMIN Active omeprazole Active triamterene Active Lasix Active levothyroxine Active Problems Problem Type SNOMED Code ICD Code Onset Dates Problem Status W/U Status Risk Notes Problem [id number] Primary osteoarthriti s, right shoulder (M19.011) Active confirmed Problem [id number] Primary osteoarthriti s, left shoulder (M19.012) Active confirmed Encounters Encounter Location Date Provider Diagnosis [facility] Office [address] [place] [address] [place] [address] [facility] oste[facility], right shoulder M19.011 ; Primary [...] Bilateral rotator cuff tears Plan Of Treatment Pending Test Test Name Order Date CBC with diff, BMP, EKG 08/06/2024 Hemoglobin A1C 08/06/2024 SCC- FINGER 3 VIEW LEFT [id number] 08/06/2024 SCC- SHOULDER 3 VIEW RIGHT [id number] 025 SCC- SHOULDER 3 VIEW LEFT 88022 08/07/19 25 Insurance Providers Payer Name Payer Address Payer Phone Subscriber Number Group Number Insured Name Patient Relationship to Insured Coverage Start Date Coverage End Date Medicare [address] [phone] [id number] RUTH ALONZO Self - patient is the insured 5 AARP SUPPLEMENT [address] [place] [address] [id number] RUTH ALONZO Self - patient is the insured 5 Medications Administered Medication Instructions Date of Administration Dosage Notes BUPIVACAINE 08/06/2024 4 mL Depo-Medrol 08/06/2024 2 mL lidocaine 08/06/2024 4 mL Medical (General) History Medical History History ICD Code Hypothyroidism GI Problems: Anxiety
--- NOTE | 2024-11-29 15:51 | MR_ITS ---
The [address] [address] Patient Name: RUTH ALONZO MRN: [id number] date: 1950 Sex: F Assigned Patient Location: MRI Current Patient Location: MRI Accession/Order Number: [id number] Exam Date: 11/29/2024 16:00 Report Date: 11/29/2024 20:07 At the request of: ZELDA LUEVANO MD Procedure: MR shoulder LT wo con MR LEFT SHOULDER CLINICAL INFORMATION: Shoulder pain.. COMPARISON: None. PROCEDURE: Axial, oblique coronal, and oblique sagittal long TR images of the shoulder were obtained. FINDINGS: ROTATOR CUFF AND ASSOCIATED STRUCTURES Biceps Tendon: There is a full-thickness tear of the biceps long head tendon which is retracted medially along the biceps groove. Rotator cuff: There is a full-thickness tear of the infraspinatus tendon with tendon fibers medially retracted by 3.7 cm. There is a full-thickness tear of the supraspinatus tendon medially retracted by 2.5 cm. There is near complete full-thickness tear of the subscapularis tendon predominantly affecting the bursal surface. The teres minor is intact. Musculature: There is no muscular tear, contusion, or atrophy. Bursa: Fluid is noted in the subacromial bursa. OSSEOUS STRUCTURES Acromioclavicular joint: There are moderate degenerative changes of the acromioclavicular joint. A type 2 acromion configuration is noted. There is no anterior or lateral acromial downsloping. Bones: No Hill-Sachs, reverse Hill-Sachs, or bony Bankart lesions are seen. There are no fractures. There is extensive subcortical cystic change and edema at the rotator cuff insertion along the humeral head. GLENOHUMERAL JOINT Joint: There is no glenohumeral joint effusion. Cartilage: No focal hyaline cartilage defects are noted. Labrum: The superior and anterior labrum is truncated consistent with a remote SLAP tear. Other support structures: No capsular or ligamentous abnormality is seen. MR/MR shoulder LT wo con IMPRESSION: 1. There is a full-thickness tear of the biceps long head tendon which is retracted medially along the biceps groove. 2. There is a full-thickness tear of the infraspinatus tendon with tendon fibers medially retracted by 3.7 cm. 3. There is a full-thickness tear of the supraspinatus tendon medially retracted by 2.5 cm. 4. There is near complete full-thickness tear of the subscapularis tendon predominantly affecting the bursal surface. 5. The superior and anterior labrum is truncated consistent with a remote SLAP tear. Impression dictated by: Chandrakant Oneill M.D. 11/29/2024 8:07 PM Dictation Location: [place] [address] Electronically authenticated by: [id number] Y Date: 11/29/2024 20:07
== END 2024-11-29 15:42 | disposition home or self-care (01) ==
LOC: MRI 15:41
PROVIDERS: PCP Family Medicine; Visit Provider Family Medicine
DX: M25.512 Pain in left shoulder (principal); S43.432A Superior glenoid labrum lesion of left shoulder, initial encounter; S46.812A Strain of other muscles, fascia and tendons at shoulder and upper arm level, left arm, initial encounter
CPT/HCPCS: 73221